=== PATIENT | male | born 1955 | race Caucasian/White ===

== ENCOUNTER 2017-05-27 08:15 | Inpatient (IN) | payer OTHER ==
[2017-05-27] MEDS ORDERED: SODIUM CHLORIDE 0.9% 1,000 ML IV STA (08:18)
[2017-05-27 08:39] LABS: Basophils % (A) 0 %; CH 32.1; CHCM 32.7; Eosinophils # (A) 0.1 k/uL (0-0.7); Eosinophils % (A) 1 %; HCT 49.4 % (39.0-53.0); HDW 2.34; HGB 16.2 gm/dL (13.0-17.5); Luc # (Auto) 0.08; Luc % (Auto) 1; Lymphocytes # (A) 0.9 k/uL (1.0-4.8); Lymphocytes % (A) 11 %; MCH 32.4 pg (25.0-35.0); MCHC 32.8 g/dL (31.0-37.0); MCV 98.8 fL (80.0-100.0); Mean Platelet Volume 7.6; Monocytes # (A) 0.3 k/uL (0-1.0); Monocytes % (A) 4 %; Neutrophils # (A) 6.9 k/uL (1.3-7.7); Neutrophils % (A) 84 %; RBC 4.99 m/uL (4.30-5.90); WBC 8.2 k/uL (3.8-10.6); WBC (Perox) 8.29
[2017-05-27] MEDS ORDERED: RX INFO: IV CONTRAST WAS GIVEN 1 EACH MISC MISCELLANE PRN (08:41)
[2017-05-27] MEDS ORDERED: ONDANSETRON 4 MG/2 ML VIAL IVP STA (08:42)
[2017-05-27] MEDS ORDERED: KETOROLAC 30 MG/ML 1 ML VIAL IVP STA (08:42)
--- NOTE | 2017-05-27 08:44 | ED ---
Abdominal Pain HPI <Teja Becerra - Last Filed: 05/27/17 10:46> - General Source: patient, EMS, RN notes reviewed Mode of arrival: EMS Limitations: physical limitation <Kanu Delgado - Last Filed: 05/27/17 10:48> - General Chief Complaint: Abdominal Pain Stated Complaint: abd pain Time Seen by Provider: 05/27/17 08:18 - History of Present Illness Initial Comments: This a 61-year-old male presents emergency department via EMS chief complaint abdominal pain. Patient states pain started last night has mid abdomen nonradiating. Patient states never had any pain like this in the past. Patient denies it any prior abdominal issues including peptic ulcer disease, Crohn's, also colitis, diverticulitis, pancreatitis and denies any prior abdominal surgeries. Patient states that the pain continued throughout the night and states it hasn't alleviated. Patient was given 10 mg of morphine by EMS and states that helped pain some. He states soap feels nauseated denies any vomiting. Denies any diarrhea or constipation. Patient did admit to drinking alcohol last night. Patient denies chest pain, shortness breath, fever , chills, back pain. (Kanu Delgado) - Related Data Allergies Allergy/AdvReac Type Severity Reaction Status Date / Time No Known Allergies Allergy Verified 05/27/17 08:50 Review of Systems ROS Other: All systems not noted in ROS Statement are negative. <Teja Becerra - Last Filed: 05/27/17 10:46> ROS Other: All systems not noted in ROS Statement are negative. <Kanu Delgado - Last Filed: 05/27/17 10:48> ROS Statement: Those systems with pertinent positive or pertinent negative responses have been documented in the HPI. Past Medical History Past Medical History: No Reported History Past Surgical History: No Surgical Hx Reported <Teja Becerra - Last Filed: 05/27/17 10:46> History of Any Multi-Drug Resistant Organisms: None Reported Smoking Status: Current every day smoker Past Alcohol Use History: Daily Past Drug Use History: None Reported <Kanu Delgado - Last Filed: 05/27/17 10:48> General Exam Limitations: no limitations General appearance: alert, in no apparent distress Head exam: Present: atraumatic, normocephalic, normal inspection Eye exam: Present: normal appearance, PERRL, EOMI. Absent: scleral icterus, conjunctival injection, periorbital swelling ENT exam: Present: normal exam, normal oropharynx, mucous membranes moist Neck exam: Present: normal inspection. Absent: tenderness, meningismus, lymphadenopathy Respiratory exam: Present: normal lung sounds bilaterally. Absent: respiratory distress, wheezes, rales, rhonchi, stridor Cardiovascular Exam: Present: regular rate, normal rhythm, normal heart sounds. Absent: systolic murmur, diastolic murmur, rubs, gallop, clicks GI/Abdominal exam: Present: soft, tenderness (Moderate midabdominal tenderness) , normal bowel sounds. Absent: distended, guarding, rebound, rigid Back exam: Absent: CVA tenderness (R), CVA tenderness (L) Neurological exam: Present: alert, oriented X3, CN II-XII intact Skin exam: Present: warm, dry, intact, normal color. Absent: rash <Kanu Delgado - Last Filed: 05/27/17 10:48> Course <Teja Becerra - Last Filed: 05/27/17 10:46> <Kanu Delgado - Last Filed: 05/27/17 10:48> Vital Signs 05/27/17 05/27/17 08:17 08:28 Temperature 97.0 F L 97.0 F L Pulse Rate 62 Respiratory 20 Rate Blood Pressure 145/80 O2 Sat by Pulse 93 L Oximetry - Reevaluation(s) Reevaluation #1: 05/27/17 10:16 Patient reevaluated by myself, Dr. Becerra. Patient is uncomfortable in bed. Patient states onset of symptoms was last night and progressed over a few hours and is now severe. Abdomen is soft, no guarding. Patient has moderate mid abdominal tenderness. Patient does have elevated lactic acid and a normal CT. Surgeon has been paged. 05/27/17 10:24 EKG shows normal sinus rhythm 96. SC 150. QRS 104. QT 388. QTC 490. Normal axis. Normal QRS. No acute ST change. 05/27/17 10:33 Case was discussed in detail with Dr. Patterson who is coming to evaluate the patient. 05/27/17 10:46 Patient was seen by Dr. Patterson who will take patient to the OR. He does request zosyn (Teja Becerra) Medical Decision Making - Lab Data Result diagrams: 05/27/17 08:25 05/27/17 08:25 <Teja Becerra - Last Filed: 05/27/17 10:46> - Lab Data Result diagrams: 05/27/17 08:25 05/27/17 08:25 <Kanu Delgado - Last Filed: 05/27/17 10:48> - Lab Data Lab Results 05/27/17 05/27/17 05/27/17 Range/Units 08:25 08:25 08:25 WBC 8.2 (3.8-10.6) k/uL RBC 4.99 (4.30-5.90) m/uL Hgb 16.2 (13.0-17.5) gm/dL Hct 49.4 (39.0-53.0) % MCV 98.8 (80.0-100.0) fL MCH 32.4 (25.0-35.0) pg MCHC 32.8 (31.0-37.0) g/dL RDW 13.0 (11.5-15.5) % Plt Count 178 (150-450) k/uL Neutrophils % 84 % Lymphocytes % 11 % Monocytes % 4 % Eosinophils % 1 % Basophils % 0 % Neutrophils # 6.9 (1.3-7.7) k/uL Lymphocytes # 0.9 L (1.0-4.8) k/uL Monocytes # 0.3 (0-1.0) k/uL Eosinophils # 0.1 (0-0.7) k/uL Basophils # 0.0 (0-0.2) k/uL Sodium 143 (137-145) mmol/L Potassium 4.1 (3.5-5.1) mmol/L Chloride 109 H (98-107) mmol/L Carbon Dioxide 24 (22-30) mmol/L Anion Gap 10 mmol/L BUN 15 (9-20) mg/dL Creatinine 0.69 (0.66-1.25) mg/dL Est GFR (MDRD) Af Amer >60 (>60 ml/min/1.73 sqM) Est GFR (MDRD) Non-Af >60 (>60 ml/min/1.73 sqM) Glucose 128 H (74-99) mg/dL Plasma Lactic Acid Myles 2.6 H* (0.7-2.0) mmol/L Calcium 8.4 (8.4-10.2) mg/dL Total Bilirubin 0.3 (0.2-1.3) mg/dL AST 40 (17-59) U/L ALT 44 (21-72) U/L Alkaline Phosphatase 85 (38-126) U/L Total Protein 6.8 (6.3-8.2) g/dL Albumin 3.9 (3.5-5.0) g/dL Amylase 94 (30-110) U/L Lipase 256 (23-300) U/L Serum Alcohol mg/dL 05/27/17 Range/Units 08:41 WBC (3.8-10.6) k/uL RBC (4.30-5.90) m/uL Hgb (13.0-17.5) gm/dL Hct (39.0-53.0) % MCV (80.0-100.0) fL MCH (25.0-35.0) pg MCHC (31.0-37.0) g/dL RDW (11.5-15.5) % Plt Count (150-450) k/uL Neutrophils % % Lymphocytes % % Monocytes % % Eosinophils % % Basophils % % Neutrophils # (1.3-7.7) k/uL Lymphocytes # (1.0-4.8) k/uL Monocytes # (0-1.0) k/uL Eosinophils # (0-0.7) k/uL Basophils # (0-0.2) k/uL Sodium (137-145) mmol/L Potassium (3.5-5.1) mmol/L Chloride (98-107) mmol/L Carbon Dioxide (22-30) mmol/L Anion Gap mmol/L BUN (9-20) mg/dL Creatinine (0.66-1.25) mg/dL Est GFR (MDRD) Af Amer (>60 ml/min/1.73 sqM) Est GFR (MDRD) Non-Af (>60 ml/min/1.73 sqM) Glucose (74-99) mg/dL Plasma Lactic Acid Myles (0.7-2.0) mmol/L Calcium (8.4-10.2) mg/dL Total Bilirubin (0.2-1.3) mg/dL AST (17-59) U/L ALT (21-72) U/L Alkaline Phosphatase (38-126) U/L Total Protein (6.3-8.2) g/dL Albumin (3.5-5.0) g/dL Amylase (30-110) U/L Lipase (23-300) U/L Serum Alcohol 42 mg/dL Disposition <Teja Becerra - Last Filed: 05/27/17 10:46> <Kanu Delgado - Last Filed: 05/27/17 10:48> Clinical Impression: Intractable abdominal pain Disposition: ADMITTED IP TO THIS HOSP Condition: Fair Referrals: None,Stated [Primary Care Provider] - 1-2 days
[2017-05-27 08:49] LABS: ALT 44 U/L (21-72); AST 40 U/L (17-59); Alkaline Phosphatase 85 U/L (38-126); Amylase 94 U/L (30-110); Anion Gap 10 mmol/L; Blood Urea Nitrogen 15 mg/dL (9-20); Calcium 8.4 mg/dL (8.4-10.2); Carbon Dioxide 24 mmol/L (22-30); Chloride 109 mmol/L (98-107); Glucose 128 mg/dL (74-99); Non-African American GFR(MDRD) >60 (>60 ml/min/1.73 sqM); Potassium 4.1 mmol/L (3.5-5.1); Sodium 143 mmol/L (137-145); Total Bilirubin 0.3 mg/dL (0.2-1.3); Total Protein 6.8 g/dL (6.3-8.2)
[2017-05-27] MEDS ORDERED: SODIUM CHLORIDE 0.9% 1,000 ML IV ONE (09:08)
[2017-05-27] MEDS ORDERED: SODIUM CHLORIDE 0.9% 500 ML IV ONE (09:08)
[2017-05-27] MEDS ORDERED: METOCLOPRAMIDE 5 MG/ML 2 ML VIAL IVP STA (09:40)
[2017-05-27] MEDS ORDERED: HYDROmorphone 1 MG/ML 1 ML SYRINGE IVP STA ×2 (09:40→10:10)
--- NOTE | 2017-05-27 09:46 | CT ---
EXAMINATION TYPE: CT abdomen pelvis w con DATE OF EXAM: 05/27/2017 REFERENCE: NONE HISTORY: Pain HISTORY: Abdominal pain REFERENCE: NONE CT DLP: 710.6 mGy Automated exposure control for dose reduction was used. TECHNIQUE: Helical acquisition through the abdomen and pelvis was obtained without Oral Contrast and following intravenous administration of 100 mL of Omnipaque 300. The data was reformatted in axial, c oronal and sagittal projections. FINDINGS: Visualized portions of the lungs are clear. There is no pleural or pericardial fluid. Hear t size is upper limits of normal. Within the abdomen, the liver, spleen and gallbladder appear normal. Both adrenal glands appear normal. Both kidneys demonstrate function. There is a 5.2 mm hypoattenuating lesion in the mid polar region o f the left kidney. The right kidney demonstrates an even smaller hypoattenuating lesion in the mid to lower pole. These lesions are too small to characterize accurately. They likely represent cysts. The pancreas appears unremarkable. There is no significant retroperitoneal, iliac or inguinal adenopathy. The bladder is unremarkable. There is no significant diverticular change. The appendix appears normal. There are fluid-filled, mildly dilated loops of small bowel. There is inflammatory change in the mese ntery. It would be difficult to exclude an internal hernia. There is a small amount of free fluid in the pelvis. No free air is seen. Both femoral heads are nonspherical. There are degenerative changes in the hips. There is facet arthr opathy as well as hypertrophic spondylosis and degenerative disc disease within the spine. No bony de structive lesion is seen. IMPRESSION: 1. ABNORMAL APPEARING SMALL BOWEL WITH INFLAMMATORY CHANGE IN THE MESENTERY. THIS IS SUSPICIOUS FOR A N INTERNAL HERNIA. 2. BORDERLINE CARDIOMEGALY. 3. SMALL LESIONS IN BOTH KIDNEYS LIKELY REPRESENTING CYSTS. THIS COULD BE CONFIRMED WITH ULTRASOUND. 4. SMALL AMOUNT OF FREE FLUID IN THE PELVIS. 5. PLEASE CORRELATE CLINICALLY FOR FEMOROACETABULAR IMPINGEMENT SYNDROME IMPINGEMENT SYNDROME. 6. DEGENERATIVE CHANGES IN THE HIPS AND SPINE.
[2017-05-27] MEDS ORDERED: PANTOPRAZOLE 40 MG/10 ML VIAL IVP STA (10:23)
[2017-05-27] MEDS ORDERED: LORazepam 2 MG/ML SYRINGE IV STA (10:23)
[2017-05-27] MEDS ORDERED: PIPERACILLIN-TAZOBACTAM 3.375 GM in DEXTROSE/WATER 1 50ML.BAG IVPB STA (10:45)
[2017-05-27] MEDS ORDERED: ONDANSETRON 4 MG/2 ML VIAL IVP PRN (10:48)
[2017-05-27] MEDS ORDERED: NALOXONE 0.4 MG/ML 1 ML VIAL IV PRN (10:48)
[2017-05-27 10:53] LABS: INR 1.1 (<1.2); Partial Thromboplastin Time 23.2 sec (22.0-30.0); Prothrombin Time 10.8 sec (9.0-12.0)
--- NOTE | 2017-05-27 10:54 | P.GSHP ---
History of Present Illness H&P Date: 05/27/17 Chief Complaint: Abdominal pain Patient presents to the ER with complaints of mid abdominal pain. This began last night. Since that time and has become quite a bit more severe. No history of similar events in the past. He has had nausea with dry heaves. Normal bowel movement yesterday. Patient says he cannot get comfortable and is writhing around in the bed. He has had a 2 L bolus. His lactic acid is 2.6. His white blood cell count is normal. No history of irregular heartbeat. He had a CAT scan which showed a segment of mid small bowel that is inflamed and there is concern for possible internal hernia. He had a umbilical hernia repaired as an infant. He has a transverse scar present there. - Review of Systems Comment: The patient denies any acute changes in vision or hearing, no dysphagia or odynophagia, no chest pain or shortness of breath, no dysuria or hematuria, no headache, no runny nose, no rectal bleeding or melena, no unexplained weight loss Past Medical History Past Medical History: No Reported History History of Any Multi-Drug Resistant Organisms: None Reported Past Surgical History: No Surgical Hx Reported Smoking Status: Current every day smoker Past Alcohol Use History: Daily Past Drug Use History: None Reported Medications and Allergies Allergies Allergy/AdvReac Type Severity Reaction Status Date / Time No Known Allergies Allergy Verified 05/27/17 08:50 Surgical - Exam Vital Signs Temp Pulse Resp BP Pulse Ox 97.0 F L 62 20 145/80 93 L 05/27/17 08:17 05/27/17 08:17 05/27/17 08:17 05/27/17 08:17 05/27/17 08:17 Physical exam: General: Well-developed, well-nourished, unkempt-appearing, in some distress related to ongoing abdominal pain HEENT: Normocephalic, sclerae nonicteric Abdomen: Mild distention, diffuse tenderness noted, rebound present Extremities: No edema Neuro: Alert and oriented Results - Labs 05/27/17 08:25 05/27/17 08:25 Abnormal Lab Results - Last 24 Hours (Table) 05/27/17 05/27/17 05/27/17 Range/Units 08:25 08:25 08:25 Lymphocytes # 0.9 L (1.0-4.8) k/uL Chloride 109 H (98-107) mmol/L Glucose 128 H (74-99) mg/dL Plasma Lactic Acid Myles 2.6 H* (0.7-2.0) mmol/L Diabetes panel 05/27/17 Range/Units 08:25 Sodium 143 (137-145) mmol/L Potassium 4.1 (3.5-5.1) mmol/L Chloride 109 H (98-107) mmol/L Carbon Dioxide 24 (22-30) mmol/L BUN 15 (9-20) mg/dL Creatinine 0.69 (0.66-1.25) mg/dL Glucose 128 H (74-99) mg/dL Calcium 8.4 (8.4-10.2) mg/dL AST 40 (17-59) U/L ALT 44 (21-72) U/L Alkaline Phosphatase 85 (38-126) U/L Total Protein 6.8 (6.3-8.2) g/dL Albumin 3.9 (3.5-5.0) g/dL Calcium panel 05/27/17 Range/Units 08:25 Calcium 8.4 (8.4-10.2) mg/dL Albumin 3.9 (3.5-5.0) g/dL Pituitary panel 05/27/17 Range/Units 08:25 Sodium 143 (137-145) mmol/L Potassium 4.1 (3.5-5.1) mmol/L Chloride 109 H (98-107) mmol/L Carbon Dioxide 24 (22-30) mmol/L BUN 15 (9-20) mg/dL Creatinine 0.69 (0.66-1.25) mg/dL Glucose 128 H (74-99) mg/dL Calcium 8.4 (8.4-10.2) mg/dL Adrenal panel 05/27/17 Range/Units 08:25 Sodium 143 (137-145) mmol/L Potassium 4.1 (3.5-5.1) mmol/L Chloride 109 H (98-107) mmol/L Carbon Dioxide 24 (22-30) mmol/L BUN 15 (9-20) mg/dL Creatinine 0.69 (0.66-1.25) mg/dL Glucose 128 H (74-99) mg/dL Calcium 8.4 (8.4-10.2) mg/dL Total Bilirubin 0.3 (0.2-1.3) mg/dL AST 40 (17-59) U/L ALT 44 (21-72) U/L Alkaline Phosphatase 85 (38-126) U/L Total Protein 6.8 (6.3-8.2) g/dL Albumin 3.9 (3.5-5.0) g/dL Assessment and Plan (1) Intractable abdominal pain Narrative/Plan: Clinical scenario discussed with the patient in detail. Concern regarding the possibility of ischemic bowel given the CAT scan appearance. We'll proceed with exploratory laparotomy with possible need for bowel resection. Risks of bleeding, infection, hernia, negative laparotomy, possible need for bowel resection, anastomotic leak, possible need for ostomy, and anesthesia complications. The patient and his family understand and wish to proceed. Status: Acute
--- NOTE | 2017-05-27 11:35 | XR ---
EXAMINATION TYPE: XR chest 1V DATE OF EXAM: 05/27/2017 HISTORY: Pain. REFERENCE: NONE. FINDINGS: Heart size upper limits of normal. The lungs are clear. Pleural spaces are clear. IMPRESSION: NO ACUTE INTRATHORACIC ABNORMALITY.
[2017-05-27] MEDS ORDERED: IV FLUID CONTINUATION 1,000 ML IV ONE ×2 (14:01→14:02)
[2017-05-27] MEDS ORDERED: HYDROmorphone (PF) 1 MG/ML ONE (14:49)
[2017-05-27] MEDS ORDERED: MIDAZOLAM 2 MG/2 ML VIAL ONE (14:49)
[2017-05-27] MEDS ORDERED: GLYCOPYRROLATE 0.2 MG/ML 2 ML VIAL ONE (14:49)
[2017-05-27] MEDS ORDERED: fentaNYL (PF) 50 MCG/ML 2 ML AMP ONE (14:49)
[2017-05-27] MEDS ORDERED: DEXAMETHASONE SOD PHOS (MDV) 100 MG/10 ML VIAL ONE (14:49)
[2017-05-27] MEDS ORDERED: PHENYLEPHRINE-0.9% NACL SYG 1 MG/10 ML SYRINGE ONE (14:49)
[2017-05-27] MEDS ORDERED: VECURONIUM 10 MG VIAL IV ONE (14:49)
[2017-05-27] MEDS ORDERED: SUCCINYLCHOLINE CHLORIDE 100 MG/5 ML SYR IV ONE (14:49)
[2017-05-27] MEDS ORDERED: LIDOCAINE 1% INJ 10MG/ML (20 ML MDV) ONE (14:49)
[2017-05-27] MEDS ORDERED: PROPOFOL 10 MG/ML 20 ML VIAL IV ONE (14:49)
[2017-05-27] MEDS ORDERED: NEOSTIGMINE 1 MG/ML 10 ML VIAL ONE (14:49)
[2017-05-27] MEDS ORDERED: HEPARIN SODIUM,PORCINE 5,000 UNIT/ML 1 ML VIAL ONE (14:49)
[2017-05-27] MEDS ORDERED: LACTATED RINGERS 1,000 ML IV ONE ×2 (15:15)
[2017-05-27] MEDS ORDERED: LORazepam 2 MG/ML SYRINGE IV PRN (16:38)
[2017-05-27] MEDS ORDERED: THIAMINE 100 MG/ML 2 ML VIAL IM STA (16:38)
--- NOTE | 2017-05-27 16:49 | P.OP ---
Date of Procedure: 05/27/17 Procedure(s) Performed: PREOPERATIVE DIAGNOSIS: Abdominal pain suspect ischemic bowel POSTOPERATIVE DIAGNOSIS: Skin of bowel secondary to internal hernia PROCEDURE: Exploratory laparotomy with lysis of adhesions and small bowel resection SURGEON: Vane EBL: Minimal ANESTHESIA: General COMPLICATIONS: None OPERATIVE PROCEDURE: Patient was placed in the operative table in the supine position. The patient was placed under general anesthesia. The abdomen was prepped and draped in the usual sterile fashion. A vertical incision was made extending above and below the umbilicus. Dissection through the subcutaneous fat and fascia took place using electrocautery. Entrance in the abdomen took place. A castellon colored fluid was evacuated. Almost 1 L of fluid was removed. The patient small bowel was viable proximally and distally however in the proximal ileum there was a portion of small bowel measuring approximately 1.5-2 feet in length that was ischemic in nature as the result of a internal herniation. There is a single band that was lysed. There were additional adhesions between omentum and the abdominal wall that were lysed. As we monitored the small bowel that was ischemic in nature and did not recover its optimal color. There was no peristalsis noted. I decided to remove this section. The bowel was divided proximal and distal to the area of ischemia. This took place using a linear 75 stapler. The mesentery was divided using a combination of #1 Vicryl ties and the LigaSure device. A vehy-[id number] anastomosis then took place. The antimesenteric portion of the small bowel was removed at the staple line. The linear 75 stapler was fired along the antimesenteric border. The remaining defect was closed using a TX 60 device. The abdomen was irrigated. No bleeding was seen. I closed the mesenteric defect using a running 3-0 Vicryl stitch. The fascia was then closed using a running double-stranded #1 PDS suture. The skin was closed using flor. Sterile dressings were applied. DISPOSITION: Stable to recovery room
[2017-05-27] MEDS ORDERED: HYDROmorphone 1 MG/ML 1 ML SYRINGE IVP ONE (16:54)
[2017-05-27] MEDS: D5-0.45% NACL WITH KCL 20MEQ/L 1,000 ML IV SCH (17:50)
[2017-05-27] MEDS: HYDROmorphone 1 MG/ML 1 ML SYRINGE IV PRN (18:11)
[2017-05-27] MEDS: THIAMINE 100 MG TAB PO SCH (18:34)
[2017-05-27] MEDS ORDERED: HALOPERIDOL 2 MG TAB PO PRN (19:52)
[2017-05-27] MEDS: LORazepam 2 MG/ML SYRINGE IV PRN (20:11)
[2017-05-27] MEDS ORDERED: hydrALAZINE HCL 20 MG/ML 1 ML VIAL IVP PRN (20:22)
[2017-05-27] MEDS ORDERED: cloNIDine HCL 0.1 MG TAB PO PRN (20:22)
[2017-05-27] MEDS ORDERED: TEMAZEPAM 15 MG CAP PO PRN (20:23)
[2017-05-27] MEDS: NICOTINE 14MG/24HR PATCH TRANSDERM SCH (21:50)
[2017-05-27] MEDS ORDERED: SODIUM CHLORIDE 0.9% 1,000 ML with MVI, ADULT NO.4 WITH VIT K 10 ML, THIAMINE 100 MG, F... IV ONE ×4 (22:00)
[2017-05-28] MEDS: HEPARIN SODIUM,PORCINE 5,000 UNIT/ML 1 ML VIAL SQ SCH ×4 (00:01→23:18)
[2017-05-28] MEDS: [UNRECOGNIZED DRUG - REMARK] IV SCH ×4 (00:06)
[2017-05-28] MEDS: HYDROmorphone 1 MG/ML 1 ML SYRINGE IV PRN ×6 (04:10→20:56)
[2017-05-28 04:19] VITALS: BMI 22.8
--- NOTE | 2017-05-28 06:54 | CONS ---
CONSULTATION REASON FOR CONSULTATION: Advice regarding ETOH and other medical issues requested by Dr. Cifuentes. HISTORY OF PRESENT ILLNESS: This 51-year-old gentleman with a past medical history of no significant medical illness not being followed by any primary physician, apparently living with a brother. 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 Currently the patient presented to [facility] Emergency room with complaints of abdominal pain, intraabdominal hernia was suspected and the patient was seen by Dr. Cifuentes. The patient underwent exploratory laparotomy, lysis of adhesions and small bowel resection. The patient being closely monitored at this time. According to the brother, patient drinks units one fifth of alcohol. The last drink was yesterday. The patient is fairly tremulous at this time, arousable, still mildly confused and the patient is postsurgical at this time. There is no history of fever, rigors. No history of headache, loss of consciousness. No chest pain, palpitations, hematochezia or melena at this time. PAST MEDICAL HISTORY: No history of significant cardiorespiratory illness, history of smoking and alcohol. MEDICATIONS: None. ALLERGIES: None. FAMILY HISTORY: No history of heart disease or strokes in the family. SOCIAL HISTORY: History of smoking on a daily basis. History of alcohol as mentioned earlier. REVIEW OF SYSTEMS: ENT: No diminished vision, diminished hearing. Cardiovascular: No angina or palpitations. Respiratory: Occasional cough. GI: As mentioned earlier. : No dysuria. Nervous system: No numbness, weakness. Allergy/Immunology: No asthma or hayfever. Musculoskeletal as mentioned earlier. Hematology/Oncology: No history of anemia. Endocrine: No history of diabetes, hypothyroidism. Constitutional: As mentioned earlier. Hematology: Negative. Rheumatology: Negative. Psychiatric: As mentioned earlier. PHYSICAL EXAMINATION: Alert and oriented times two. Pulse is 123, blood pressure 130/90, respirations 16, temperature 99 degrees, pulse ox is 94% on 3 L. HEENT: Conjunctivae normal. Oral mucosa moist. Face is flushed. Otherwise neck is no jugular venous distention. No carotid bruit. No lymph node enlargement. CARDIOVASCULAR: S1, S2. Tachycardic. No S3, no S4. Breath sounds diminished in the bases. A few scattered rhonchi. No crackles. ABDOMEN: Soft, status post surgery. No mass palpable. Legs no edema. No swelling. Nervous system: Higher functions as mentioned. Moves all 4 limbs. No focal motor or sensory deficits. Lymphatics no lymph nodes palpable in the neck, axillae or groin. Skin no ulcer, rash, bleeding. LABS: CBC within normal limits. WBC 8.2, otherwise chloride is 109, glucose 120, lactic acid 2.6. ASSESSMENT: 1. Acute abdominal pain with possibly internal hernia with exploratory laparotomy. Lysis of adhesions and small bowel resection. 2. ETOH and alcohol withdrawals with acute delirium tremens. 3. Lactic acidosis secondary to dehydration. 4. Increased random blood sugar. 5. History of nicotine dependence. 6. Hypertension. 7. Tachycardia. RECOMMENDATIONS AND DISCUSSION: This 61-year-old gentleman who presented with multiple complex medical issues. We will monitor the patient closely. Continue the current management. Continue symptomatic treatment. I recommend to continue with hydration. I would also recommend add vitamins to the IV fluids and I would also recommend to continue with CIWA protocol and p.r.n. Ativan. The prognosis is guarded because of multiple complex medical issues. Further recommendations to follow. See orders for details. DVT prophylaxis. Clonidine for hypertension, control hypertension. Discussed with staff. Further recommendations to follow. The prognosis is guarded. Thank you Dr. Cifuentes for letting us participate in the care of this patient. MMODL / IJN: [id number] /
[2017-05-28] MEDS ORDERED: HALOPERIDOL LACTATE 5 MG/ML 1 ML VIAL IM PRN (06:58)
[2017-05-28 07:00] LABS: Appearance,Urine Cloudy (Clear); Glucose,Urine (UA) Negative (Negative); PH, Urine 6.5 (5.0-8.0); Protein,Urine Negative (Negative); Specific Gravity,Urine 1.019 (1.001-1.035)
[2017-05-28 07:01] LABS: Bacteria,Urine Rare /hpf; Bilirubin,Urine Negative (Negative); Ketones,Urine Negative (Negative); Leukocyte Esterase,Urine Large (Negative); Mucus,Urine Rare /hpf; Nitrite,Urine Negative (Negative); Particle Count 3460; RBC,Urine 9 /hpf (0-5); UA Billing (MACRO vs. MICRO) MICRO; Urobilinogen,Urine <2.0 mg/dL (<2.0); WBC,Urine 81 /hpf (0-5)
[2017-05-28 07:18] LABS: Basophils % (A) 0 %; CH 32.1; CHCM 31.6; Eosinophils % (A) 0 %; HCT 48.7 % (39.0-53.0); HDW 2.32; HGB 15.6 gm/dL (13.0-17.5); Luc # (Auto) 0.08; Luc % (Auto) 1; Lymphocytes # (A) 0.8 k/uL (1.0-4.8); Lymphocytes % (A) 9 %; MCH 32.6 pg (25.0-35.0); MCV 101.9 fL (80.0-100.0); Macrocytosis Slight; Mean Platelet Volume 7.8; Monocytes # (A) 0.7 k/uL (0-1.0); Monocytes % (A) 8 %; Neutrophils # (A) 7.6 k/uL (1.3-7.7); Neutrophils % (A) 82 %; RBC 4.78 m/uL (4.30-5.90); RDW 13.3 % (11.5-15.5); WBC 9.3 k/uL (3.8-10.6); WBC (Perox) 9.23
[2017-05-28 07:32] LABS: Anion Gap 8 mmol/L; Blood Urea Nitrogen 15 mg/dL (9-20); Calcium 8.3 mg/dL (8.4-10.2); Carbon Dioxide 28 mmol/L (22-30); Chloride 104 mmol/L (98-107); Glucose 101 mg/dL (74-99); Magnesium 1.9 mg/dL (1.6-2.3); Non-African American GFR(MDRD) >60 (>60 ml/min/1.73 sqM); Phosphorous 3.2 mg/dL (2.5-4.5); Potassium 4.3 mmol/L (3.5-5.1); Sodium 140 mmol/L (137-145)
[2017-05-28] MEDS: PANTOPRAZOLE 40 MG/10 ML VIAL IV SCH (08:30)
[2017-05-28] MEDS: NICOTINE 14MG/24HR PATCH TRANSDERM SCH (08:30)
--- NOTE | 2017-05-28 08:52 | P.PN ---
Subjective Principal diagnosis: Ischemic bowel Patient doing better today. His pain is improved. He has sore at surgical site. He was tachycardic although that is improving. His white blood cell count 9.3. Hemoglobin stable. Lactic acid is improved at 1.5. Objective - Vital Signs Vital signs: Vital Signs Temp 97.9 F 05/28/17 07:00 Pulse 78 05/28/17 07:00 Resp 16 05/28/17 07:00 BP 151/95 05/28/17 07:00 Pulse Ox 97 05/28/17 08:00 Intake & Output 05/27/17 05/28/17 05/28/17 18:59 06:59 18:59 Intake Total 1300 850 Output Total 425 1500 Balance 875 -650 Weight 68.039 kg 68.039 kg Intake: IV 1300 800 Mvi, Adult No.4 with Vit 800 K 10 ml Thiamine 100 mg Folic Acid 1 mg In Sodium Chloride 0.9% 1,000 ml @ 100 mls/hr IV HS CANDY Rx# :[id number] Oral 50 Output: Urine 350 1500 Estimated Blood Loss 75 Other: Voiding Method Toilet Indwelling Catheter - Exam Abdomen: Soft, mild distention, mild tenderness, dressing intact - Labs CBC & Chem 7: 05/28/17 06:20 05/28/17 06:20 Labs: Abnormal Lab Results - Last 24 Hours (Table) 05/27/17 05/27/17 05/28/17 Range/Units 08:25 08:25 06:20 MCV 101.9 H (80.0-100.0) fL Plt Count 128 L (150-450) k/uL Lymphocytes # 0.8 L (1.0-4.8) k/uL Chloride 109 H (98-107) mmol/L Creatinine (0.66-1.25) mg/dL Glucose 128 H (74-99) mg/dL Plasma Lactic Acid Myles 2.6 H* (0.7-2.0) mmol/L Calcium (8.4-10.2) mg/dL Urine Blood (Negative) Ur Leukocyte Esterase (Negative) Urine RBC (0-5) /hpf Urine WBC (0-5) /hpf Urine Bacteria (None) /hpf Urine Mucus (None) /hpf 05/28/17 05/28/17 Range/Units 06:20 06:25 MCV (80.0-100.0) fL Plt Count (150-450) k/uL Lymphocytes # (1.0-4.8) k/uL Chloride (98-107) mmol/L Creatinine 0.59 L (0.66-1.25) mg/dL Glucose 101 H (74-99) mg/dL Plasma Lactic Acid Myles (0.7-2.0) mmol/L Calcium 8.3 L (8.4-10.2) mg/dL Urine Blood Trace H (Negative) Ur Leukocyte Esterase Large H (Negative) Urine RBC 9 H (0-5) /hpf Urine WBC 81 H (0-5) /hpf Urine Bacteria Rare H (None) /hpf Urine Mucus Rare H (None) /hpf Assessment and Plan (1) Intractable abdominal pain Narrative/Plan: Continue antiacids. Continue antibiotics. Recheck labs tomorrow. DT protocol. Increase activity. Remove nasogastric tube and Alatorre catheter. Status: Acute
[2017-05-28] MEDS: D5-0.45% NACL WITH KCL 20MEQ/L 1,000 ML IV SCH ×3 (10:35→18:15)
[2017-05-28] MEDS: THIAMINE 100 MG TAB PO SCH ×2 (12:56→18:16)
[2017-05-28] MEDS: LORazepam 2 MG/ML SYRINGE IV PRN ×5 (12:56→21:37)
[2017-05-28] MEDS: PIPERACILLIN-TAZOBACTAM 3.375 GM in DEXTROSE/WATER 1 50ML.BAG IVPB SCH ×2 (14:54→23:20)
--- NOTE | 2017-05-28 16:21 | PN ---
PROGRESS NOTE DATE OF SERVICE: 05/28/2017 This 61-year-old gentleman was admitted with acute abdominal pain with internal hernia had exploratory laparotomy surgery. The patient also has ETOH. Patient had early withdrawal symptoms. The patient is on CIWA protocol at this time. Patient also had features of UTI. No chest pain. No palpitations. No fever. No shortness of breath. EXAM: Alert, oriented x3. Pulse is 78, blood pressure is 157/75, respiration 18, temperature 97.9, pulse ox 98% on room air. HEENT: Normal. NECK: No jugular venous distention. CARDIOVASCULAR: S1, S2. RESPIRATORY: Breath sounds diminished in the bases. No rhonchi, no crackles. ABDOMEN: Soft, status post surgery. LEGS: No edema. No swelling. NERVOUS SYSTEM: Higher functions as mentioned. Moves all four limbs. No focal motor or sensory deficits. LYMPHATICS: No lymphadenopathy in the neck, axillae, or groin. SKIN: No ulcer, rash, bleeding. LABS: WBC 9.3, sodium 140, potassium 4.3. UA possible UTI. ASSESSMENT: 1. Acute abdominal pain with possible internal hernia with expiratory laparotomy , lysis of adhesions and small bowel resection. 2. ETOH and alcohol withdrawal with acute delirium tremens. 3. Acute urinary tract infection present on admission. 4. Lactic acidosis secondary to dehydration. 5. Increased random blood sugar. 6. History of nicotine dependence. 7. Hypertension. 8. Tachycardia. RECOMMENDATIONS AND DISCUSSION: I recommend to continue current medications, continue symptomatic treatment. I recommend a course of antibiotics and closely follow with Dr. Cifuentes. has improved. Continue the CIWA protocol. Alcohol withdrawal precautions. Guarded prognosis. Further recommendations to follow. MMODL / IJN: [id number] / [facility]
[2017-05-28] MEDS: cloNIDine HCL 0.1 MG TAB PO SCH (21:38)
[2017-05-29] MEDS: HYDROmorphone 1 MG/ML 1 ML SYRINGE IV PRN (01:43)
[2017-05-29] MEDS: [UNRECOGNIZED DRUG - REMARK] IV SCH ×4 (02:28)
[2017-05-29] MEDS: LORazepam 2 MG/ML SYRINGE IV PRN ×2 (03:47→06:17)
[2017-05-29] MEDS: D5-0.45% NACL WITH KCL 20MEQ/L 1,000 ML IV SCH ×4 (05:17→22:34)
[2017-05-29 07:51] LABS: Basophils % (A) 0 %; CH 32.9; CHCM 33.7; Eosinophils % (A) 0 %; HCT 42.6 % (39.0-53.0); HDW 2.24; HGB 13.9 gm/dL (13.0-17.5); Luc # (Auto) 0.06; Luc % (Auto) 1; Lymphocytes # (A) 0.8 k/uL (1.0-4.8); Lymphocytes % (A) 12 %; MCH 32.2 pg (25.0-35.0); MCHC 32.7 g/dL (31.0-37.0); MCV 98.2 fL (80.0-100.0); Mean Platelet Volume 8.6; Monocytes # (A) 0.5 k/uL (0-1.0); Monocytes % (A) 8 %; Neutrophils # (A) 5.2 k/uL (1.3-7.7); Neutrophils % (A) 79 %; RBC 4.34 m/uL (4.30-5.90); RDW 13.5 % (11.5-15.5); WBC 6.5 k/uL (3.8-10.6); WBC (Perox) 6.54
[2017-05-29 08:01] VITALS: RESP 16
[2017-05-29] MEDS: HEPARIN SODIUM,PORCINE 5,000 UNIT/ML 1 ML VIAL SQ SCH ×3 (08:10→23:51)
[2017-05-29] MEDS: NICOTINE 14MG/24HR PATCH TRANSDERM SCH (08:10)
[2017-05-29] MEDS: PANTOPRAZOLE 40 MG/10 ML VIAL IV SCH (08:11)
[2017-05-29] MEDS: cloNIDine HCL 0.1 MG TAB PO SCH ×2 (08:11→22:01)
[2017-05-29 08:18] LABS: Anion Gap 7 mmol/L; Blood Urea Nitrogen 10 mg/dL (9-20); Calcium 8.7 mg/dL (8.4-10.2); Carbon Dioxide 27 mmol/L (22-30); Chloride 98 mmol/L (98-107); Glucose 94 mg/dL (74-99); Magnesium 1.9 mg/dL (1.6-2.3); Non-African American GFR(MDRD) >60 (>60 ml/min/1.73 sqM); Phosphorous 2.7 mg/dL (2.5-4.5); Potassium 3.7 mmol/L (3.5-5.1); Sodium 132 mmol/L (137-145)
[2017-05-29] MEDS: PIPERACILLIN-TAZOBACTAM 3.375 GM in DEXTROSE/WATER 1 50ML.BAG IVPB SCH ×3 (08:50→23:50)
[2017-05-29] MEDS: THIAMINE 100 MG TAB PO SCH ×2 (13:16→19:37)
--- NOTE | 2017-05-29 14:25 | P.PN ---
<Ophelia Rascon M - Last Filed: 05/29/17 14:09> Subjective 61-year-old gentleman being seen on rounds. Currently has a sitter at bedside. DT protocol in place for impending DTs daughter at the bedside. Daughter states the patient drinks daily a fifth of alcohol has not been treated in the past for alcohol withdrawals. To the daughter's knowledge patient would not be interested in treatment for alcoholism. Patient's initial presentation to the emergency room with a chief complaint of intractable abdominal pain. Patient underwent an May 27 exploratory laparotomy lysis of adhesions and small bowel resection Objective - Vital Signs Vital signs: Vital Signs Temp 97.5 F L 05/29/17 07:00 Pulse 93 05/29/17 07:00 Resp 16 05/29/17 07:00 BP 169/91 05/29/17 07:00 Pulse Ox 95 05/29/17 07:00 Intake & Output 05/28/17 05/29/17 05/29/17 18:59 06:59 18:59 Intake Total 1500 Output Total 1300 2131 Balance -1300 -631 Weight 68.039 kg Intake: IV 1500 D5-0.45% NaCl with KCl 1500 20Meq/l 1,000 ml @ 125 mls/hr IV .Q8H [facility] Rx#: [id number] Output: Urine 1300 1660 Straight 300 700 Uretheral (Alatorre) 800 Post Void Residual 471 Other: Voiding Method Indwelling Catheter Urinal # Voids 2 1 3 - Exam Physical exam 61-year-old male arousable to verbal stimuli sitter at the bedside Lungs essentially clear with adequate air movement on room air no cough noted no shortness breath Heart S1-S2 audible regular Abdomen abdominal binder in place surgical dressing dry few hypoactive bowel tones incontinent urine no stool Extremities no edema noted - Labs CBC & Chem 7: 05/29/17 07:11 05/29/17 07:11 Labs: Abnormal Lab Results - Last 24 Hours (Table) 05/29/17 05/29/17 Range/Units 07:11 07:11 Plt Count 116 L (150-450) k/uL Lymphocytes # 0.8 L (1.0-4.8) k/uL Sodium 132 L (137-145) mmol/L Microbiology - Last 24 Hours (Table) 05/28/17 17:50 Urine Culture - Preliminary Urine,Catheterized Assessment and Plan Plan: Impression Present on admission acute onset abdominal pain suspect due to ischemic bowel Postop 2029 exploratory laparotomy with lysis of adhesions and small bowel resection Daily consumption 1/5 of alcohol daily Chronic alcoholism EtOH with alcohol withdrawal with acute delirium tremors Present on admission acute urinary tract infection Lactic acid secondary to dehydration present on admission Chronic nicotine dependency Sinus tachycardia suspect due to EtOH withdrawal impending DTs Plan Continue with the sitter at the bedside Continue ciwa protocol for impending DTs IV fluid for hydration Continue postop surgical care Continue thiamine, multivitamin and folic acid as ordered DVT and GI prophylaxis The above impression and plan of care have been discussed and directed by signing physician. Ophelia Rascon nurse practitioner acting as scribe for signing physician. <Jaspal Cifuentes - Last Filed: 05/29/17 14:55> Objective - Vital Signs Vital signs: Vital Signs Temp 97.5 F L 05/29/17 07:00 Pulse 93 05/29/17 07:00 Resp 16 05/29/17 07:00 BP 169/91 05/29/17 07:00 Pulse Ox 95 05/29/17 07:00 Intake & Output 05/28/17 05/29/17 05/29/17 18:59 06:59 18:59 Intake Total 1500 Output Total 1300 2131 Balance -1300 -631 Weight 68.039 kg Intake: IV 1500 D5-0.45% NaCl with KCl 1500 20Meq/l 1,000 ml @ 125 mls/hr IV .Q8H [facility] Rx#: [id number] Output: Urine 1300 1660 Straight 300 700 Uretheral (Alatorre) 800 Post Void Residual 471 Other: Voiding Method Indwelling Catheter Urinal # Voids 2 1 3 - Labs CBC & Chem 7: 05/29/17 07:11 05/29/17 07:11 Labs: Abnormal Lab Results - Last 24 Hours (Table) 05/29/17 05/29/17 Range/Units 07:11 07:11 Plt Count 116 L (150-450) k/uL Lymphocytes # 0.8 L (1.0-4.8) k/uL Sodium 132 L (137-145) mmol/L Microbiology - Last 24 Hours (Table) 05/28/17 17:50 Urine Culture - Preliminary Urine,Catheterized Assessment and Plan (1) Intractable abdominal pain Status: Acute Plan: Patient more confused today. Denies significant pain. Begin clear liquid diet. Increase activity levels. Continue IV antibiotics.
--- NOTE | 2017-05-29 19:07 | PN ---
PROGRESS NOTE DATE OF SERVICE: 05/29/2017 This 61-year-old gentleman who was admitted with abdominal pain had surgery. The patient also has significant ETOH; the patient is on CIWA protocol currently. The patient had full-blown DTs. Patient is confused, disoriented and tremulous. The patient also had features of UTI. Patient is on antibiotics as well. PHYSICAL EXAMINATION: The patient is oriented x1. Pulse 93, blood pressure 169/91, respiration 16, temperature 97.4, pulse ox 94% on room air. HEENT: Conjunctivae normal. Oral mucosa moist. NECK: No jugular venous distention. No carotid bruit. No lymph node enlargement. CARDIOVASCULAR: S1, S2 muffled. RESPIRATORY: Breath sounds diminished at the bases. No rhonchi. No crackles. ABDOMEN: Soft. Status post surgery. LEGS: No edema. No swelling. NERVOUS SYSTEM: No focal deficit. LABS AT THIS TIME: CBC within normal limits. Sodium 132. UA noted. ASSESSMENT: 1. Acute abdominal pain with possible internal hernia with exploratory laparotomy and lysis of adhesions, small bowel obstruction. 2. Ethanol alcohol withdrawal and acute delirium tremens. 3. Acute urinary tract infection, present on admission. 4. Lactic acid secondary to dehydration. 5. Increased random blood sugar. 6. History of nicotine dependence. 7. Hypertension. 8. Tachycardia. RECOMMENDATIONS AND DISCUSSION: I recommend to continue current medication, continue symptomatic treatment. Continue with vitamin supplementation. Continue with IV fluids. Continue with CIWA protocol. Close monitor. DVT prophylaxis. Guarded prognosis because of multiple complex medical issues. Further recommendations to follow. MMODL / IJN: [id number] /
[2017-05-30] MEDS: [UNRECOGNIZED DRUG - REMARK] IV SCH ×4 (07:15)
[2017-05-30] MEDS: PIPERACILLIN-TAZOBACTAM 3.375 GM in DEXTROSE/WATER 1 50ML.BAG IVPB SCH ×2 (08:31→15:33)
[2017-05-30 08:47] LABS: Basophils % (A) 0 %; CH 33.1; CHCM 33.9; Eosinophils # (A) 0.1 k/uL (0-0.7); Eosinophils % (A) 2 %; HCT 43.4 % (39.0-53.0); HDW 2.27; HGB 14.1 gm/dL (13.0-17.5); Luc # (Auto) 0.06; Luc % (Auto) 1; Lymphocytes # (A) 0.5 k/uL (1.0-4.8); Lymphocytes % (A) 12 %; MCHC 32.6 g/dL (31.0-37.0); Mean Platelet Volume 8.2; Monocytes # (A) 0.3 k/uL (0-1.0); Monocytes % (A) 8 %; Neutrophils # (A) 3.5 k/uL (1.3-7.7); Neutrophils % (A) 78 %; RBC 4.42 m/uL (4.30-5.90); RDW 13.5 % (11.5-15.5); WBC 4.6 k/uL (3.8-10.6); WBC (Perox) 5.13
[2017-05-30 09:11] LABS: Anion Gap 10 mmol/L; Blood Urea Nitrogen 12 mg/dL (9-20); Calcium 8.4 mg/dL (8.4-10.2); Carbon Dioxide 20 mmol/L (22-30); Chloride 104 mmol/L (98-107); Glucose 88 mg/dL (74-99); Non-African American GFR(MDRD) >60 (>60 ml/min/1.73 sqM); Phosphorous 3.6 mg/dL (2.5-4.5); Potassium 3.9 mmol/L (3.5-5.1); Sodium 134 mmol/L (137-145)
--- NOTE | 2017-05-30 09:35 | P.PN ---
<Ophelia Rascon M - Last Filed: 05/30/17 09:25> Subjective 61-year-old male being seen on rounds this morning noted improvement in patient' s mentation increasingly more awake and alert. Patient reports no nausea vomiting no chest pain no dizziness lightheadedness or shortness of breath. DVT protocol for impending DTs using CIWA Ativan in progress. Patient states he's anxious to walk in the hallway" patient's pleasant cooperative sitter at the bedside no family at the bedside Initial presentation to the emergency room with a chief complaint of having developed a sudden onset of intractable abdominal pain suspect due to ischemic bowel May 27 exploratory laparotomy lysis of adhesions and small bowel resection Objective - Vital Signs Vital signs: Vital Signs Temp 98.0 F 05/30/17 07:16 Pulse 77 05/30/17 07:16 Resp 16 05/30/17 07:16 BP 127/78 05/30/17 07:16 Pulse Ox 95 05/30/17 07:16 Intake & Output 05/29/17 05/30/17 05/30/17 18:59 06:59 18:59 Intake Total 750 3400 Output Total 1000 Balance 750 2400 Weight 68.039 kg Intake: IV 750 800 D5-0.45% NaCl with KCl 800 20Meq/l 1,000 ml @ 125 mls/hr IV .Q8H [facility] Rx#: [id number] Mvi, Adult No.4 with Vit 750 K 10 ml Thiamine 100 mg Folic Acid 1 mg In Sodium Chloride 0.9% 1,000 ml @ 100 mls/hr IV HS [facility] Rx# :[id number] Intake, IV Titration 1000 Amount D5-0.45% NaCl with KCl 800 20Meq/l 1,000 ml @ 125 mls/hr IV .Q8H [facility] Rx#: [id number] Piperacillin-Tazobactam 3 200 .375 gm In Dextrose/Water 1 50ml.bag @ 12.5 mls/hr IVPB Q8HR [facility] Rx#: [id number] Oral 1600 Output: Urine 1000 Other: Voiding Method Urinal Urinal # Voids 3 2 - Exam Physical exam Pleasant 61-year-old gentleman resting in bed sitting up in bed pleasant cooperative oriented 3 Lungs essentially clear adequate air movement on room air no shortness of breath noted Heart S1-S2 audible and regular denies any chest pain when questioning no heart palpitations Abdomen abdominal binder in place surgical dressing dry not distended appropriate surgical tenderness noted no bowel movement states not passing gas tolerating clear liquid Extremities no edema noted no tremors - Labs CBC & Chem 7: 05/30/17 07:52 05/30/17 07:52 Labs: Abnormal Lab Results - Last 24 Hours (Table) 05/30/17 05/30/17 Range/Units 07:52 07:52 Plt Count 130 L (150-450) k/uL Lymphocytes # 0.5 L (1.0-4.8) k/uL Sodium 134 L (137-145) mmol/L Carbon Dioxide 20 L (22-30) mmol/L Creatinine 0.61 L (0.66-1.25) mg/dL Microbiology - Last 24 Hours (Table) 05/28/17 17:50 Urine Culture - Final Urine,Catheterized Assessment and Plan Plan: Impression Present on admission acute onset abdominal pain suspect due to ischemic bowel Postop 2029 exploratory laparotomy with lysis of adhesions and small bowel resection Daily consumption 1/5 of alcohol daily Chronic alcoholism EtOH with alcohol withdrawal with acute delirium tremors Present on admission acute urinary tract infection Lactic acid secondary to dehydration present on admission Chronic nicotine dependency Sinus tachycardia suspect due to EtOH withdrawal impending DTs Plan Increase activity Pain control Continue ciwa protocol for impending DTs IV fluid for hydration Continue postop surgical care Continue thiamine, multivitamin and folic acid as ordered DVT and GI prophylaxis The above impression and plan of care have been discussed and directed by signing physician. Ophelia Rascon nurse practitioner acting as scribe for signing physician. <Jaspal Cifuentes - Last Filed: 05/30/17 12:55> Objective - Vital Signs Vital signs: Vital Signs Temp 98.0 F 05/30/17 07:16 Pulse 77 05/30/17 07:16 Resp 16 05/30/17 07:16 BP 127/78 05/30/17 07:16 Pulse Ox 95 05/30/17 07:16 Intake & Output 05/29/17 05/30/17 05/30/17 18:59 06:59 18:59 Intake Total 750 3400 Output Total 1000 Balance 750 2400 Weight 68.039 kg Intake: IV 750 800 D5-0.45% NaCl with KCl 800 20Meq/l 1,000 ml @ 125 mls/hr IV .Q8H [facility] Rx#: [id number] Mvi, Adult No.4 with Vit 750 K 10 ml Thiamine 100 mg Folic Acid 1 mg In Sodium Chloride 0.9% 1,000 ml @ 100 mls/hr IV HS [facility] Rx# :[id number] Intake, IV Titration 1000 Amount D5-0.45% NaCl with KCl 800 20Meq/l 1,000 ml @ 125 mls/hr IV .Q8H [facility] Rx#: [id number] Piperacillin-Tazobactam 3 200 .375 gm In Dextrose/Water 1 50ml.bag @ 12.5 mls/hr IVPB Q8HR [facility] Rx#: [id number] Oral 1600 Output: Urine 1000 Other: Voiding Method Urinal Urinal # Voids 3 2 - Labs CBC & Chem 7: 05/30/17 07:52 05/30/17 07:52 Labs: Abnormal Lab Results - Last 24 Hours (Table) 05/30/17 05/30/17 Range/Units 07:52 07:52 Plt Count 130 L (150-450) k/uL Lymphocytes # 0.5 L (1.0-4.8) k/uL Sodium 134 L (137-145) mmol/L Carbon Dioxide 20 L (22-30) mmol/L Creatinine 0.61 L (0.66-1.25) mg/dL Microbiology - Last 24 Hours (Table) 05/28/17 17:50 Urine Culture - Final Urine,Catheterized Assessment and Plan (1) Intractable abdominal pain Status: Acute Plan: Patient doing much better today. Confusion is mostly resolved. No bowel function. Denies nausea or vomiting. Appetite improving. Will increase diet.
[2017-05-30] MEDS: NICOTINE 14MG/24HR PATCH TRANSDERM SCH (09:54)
[2017-05-30] MEDS: HEPARIN SODIUM,PORCINE 5,000 UNIT/ML 1 ML VIAL SQ SCH ×2 (09:55→15:33)
[2017-05-30] MEDS: cloNIDine HCL 0.1 MG TAB PO SCH ×2 (09:55→21:37)
[2017-05-30] MEDS: D5-0.45% NACL WITH KCL 20MEQ/L 1,000 ML IV SCH ×2 (10:23→17:24)
[2017-05-30] MEDS: PANTOPRAZOLE 40 MG/10 ML VIAL IV SCH (10:26)
[2017-05-30] MEDS: FOLIC ACID 1 MG TAB PO SCH (11:42)
[2017-05-30] MEDS: THIAMINE 100 MG TAB PO SCH ×2 (11:42→17:24)
--- NOTE | 2017-05-30 16:15 | PN ---
PROGRESS NOTE DATE OF SERVICE: 05/30/2017 INTERVAL HISTORY: This 61-year-old gentleman who was admitted with abdominal pain as well as possible internal hernia with surgery. Patient had acute delirium tremens. No chest pain. No palpitations. No fever. EXAM: Alert and oriented x3. pulse 77, blood pressure 129/72, respirations 16, temperature 98 degrees, pulse ox 94% room air. HEENT: Conjunctivae normal. NECK: No jugular venous distention. CARDIOVASCULAR: S1, S2 muffled. RESPIRATORY: Breath sounds diminished in the bases. A few scattered rhonchi. No crackles. ABDOMEN: Soft, status post surgery. LEGS: No edema. No cyanosis. NERVOUS SYSTEM: No focal deficits. LABS: The patient's WBC 12.3, hemoglobin 14.2. Sodium 134. UA noted. ASSESSMENT: 1. Acute abdominal pain with possible internal hernia with exploratory laparotomy as well as lysis of adhesions and small-bowel obstruction. 2. Ethanol withdrawal and acute delirium tremens. 3. Acute urinary tract infection present on admission. 4. Lactic acidosis secondary to dehydration. 5. Increased random blood sugar. 6. History of nicotine dependence. 7. Hypertension. 8. Tachycardia. RECOMMENDATIONS AND DISCUSSION: Continue current medications, continue with symptomatic treatment. Continue with CIWA protocol, Ativan p.r.n. Increase ambulation. The rest of the medications will be given per the recommendations of Surgery. Continue with empiric antibiotics. Further recommendations to follow. NANETTE / VALARIEN: [id number] /
[2017-05-31] MEDS: PIPERACILLIN-TAZOBACTAM 3.375 GM in DEXTROSE/WATER 1 50ML.BAG IVPB SCH ×4 (00:09→23:51)
[2017-05-31] MEDS: HEPARIN SODIUM,PORCINE 5,000 UNIT/ML 1 ML VIAL SQ SCH ×4 (00:09→23:51)
[2017-05-31] MEDS: [UNRECOGNIZED DRUG - REMARK] IV SCH ×8 (01:03→22:37)
[2017-05-31] MEDS: D5-0.45% NACL WITH KCL 20MEQ/L 1,000 ML IV SCH ×3 (01:04→20:47)
[2017-05-31] MEDS: cloNIDine HCL 0.1 MG TAB PO SCH ×2 (07:53→21:18)
[2017-05-31] MEDS: PANTOPRAZOLE 40 MG/10 ML VIAL IV SCH (07:53)
[2017-05-31] MEDS: NICOTINE 14MG/24HR PATCH TRANSDERM SCH (08:06)
[2017-05-31] MEDS: THIAMINE 100 MG TAB PO SCH ×2 (11:01→18:03)
[2017-05-31] MEDS: FOLIC ACID 1 MG TAB PO SCH (11:01)
--- NOTE | 2017-05-31 11:12 | P.PN ---
Subjective Principal diagnosis: Ischemic bowel Patient doing well today. He is tolerating his full liquid diet. He is having bowel function. He is very alert. Pain is improved. Objective - Vital Signs Vital signs: Vital Signs Temp 98.1 F 05/31/17 06:48 Pulse 75 05/31/17 06:48 Resp 16 05/31/17 06:48 BP 100/62 05/31/17 06:48 Pulse Ox 92 L 05/31/17 06:48 Intake & Output 05/30/17 05/31/17 05/31/17 18:59 06:59 18:59 Intake Total 100 1600 Balance 100 1600 Weight 68.039 kg Intake: IV 1600 D5-0.45% NaCl with KCl 1000 20Meq/l 1,000 ml @ 125 mls/hr IV .Q8H [facility] Rx#: [id number] Mvi, Adult No.4 with Vit 600 K 10 ml Thiamine 100 mg Folic Acid 1 mg In Sodium Chloride 0.9% 1,000 ml @ 100 mls/hr IV HS [facility] Rx# :[id number] Oral 100 Other: Voiding Method Urinal Toilet Urinal # Voids 2 5 2 # Bowel Movements 1 - Exam Abdomen: Soft, nondistended, incision clean and dry - Labs CBC & Chem 7: 05/30/17 07:52 05/30/17 07:52 Assessment and Plan (1) Intractable abdominal pain Narrative/Plan: Advance diet to soft foods. Increase activity levels. Anticipate discharge tomorrow. Status: Acute
--- NOTE | 2017-05-31 15:39 | PN ---
PROGRESS NOTE DATE OF SERVICE: 05/31/2017 This is a 61-year-old gentleman who was admitted with acute abdominal pain, had surgery. Patient also had acute alcohol withdrawal and as well as delirium tremens also. No chest pain. No palpitation. No fever. PHYSICAL EXAM: Alert and oriented x3. Pulse 75, blood pressure 100/60, respirations 16, temperature 98.1, pulse ox 95% on room air. HEENT: Conjunctivae are normal, oral mucosa moist. Neck is no jugular venous distention, no thyroid enlargement, no lymph node enlargement. CARDIOVASCULAR SYSTEM: S1, S2 muffled. RESPIRATORY: Breath sounds diminished at the bases, scattered rhonchi. ABDOMEN: Soft, status post surgery. LEGS: No edema. No swelling. NERVOUS SYSTEM: No focal deficits. . LABS: Platelets 130, sodium 135. ASSESSMENT: 1. Acute abdominal pain with possible internal hernia with exploratory laparotomy as well as lysis of adhesions and small bowel obstruction. 2. History of Ethyl alcohol withdrawal and acute delirium tremens. 3. Acute urinary tract infection, present on admission. 4. Lactic acidosis secondary to dehydration. 5. Increased random blood sugar. 6. History of nicotine dependence. 7. Hypertension. 8. Tachycardia. RECOMMENDATION: In this 61-year-old gentleman who presented with multiple medical issues, will monitor the patient closely. Continue with the current management and symptomatic treatment. Continue with the clonidine. Continue with the antibiotics. Closely follow with Surgery, Dr. Cifuentes. Advance diet per Dr. Cifuentes. Further recommendations to follow. MMODL / IJN: [id number] /
[2017-06-01] MEDS: D5-0.45% NACL WITH KCL 20MEQ/L 1,000 ML IV SCH ×2 (01:18→09:07)
[2017-06-01] MEDS ORDERED: PANTOPRAZOLE 40 MG TABLET PO SCH (07:30)
[2017-06-01 08:05] VITALS: BP 123/74; PULSE 72; TEMP 97.9
--- NOTE | 2017-06-01 08:14 | P.DS ---
Providers Date of admission: 05/27/17 10:49 Expected date of discharge: 06/01/17 Attending physician: Jaspal Cifuentes Consults: 05/27/17 16:38 Consult Physician Routine Consulting Provider: Stalin Avalos Consult Reason/Comments: Medical management Do you want consulting provider notified?: Yes Primary care physician: Stated None - Discharge Diagnosis(es) (1) Intractable abdominal pain Patient is better the hospital with ischemic bowel. He underwent exploratory laparotomy and was found to have a segment of small bowel that was ischemic secondary to internal herniation from abdominal adhesions. This required a small bowel resection. Postoperatively he has done well. He is tolerating his diet at this point. His pain is well-controlled with oral medications. He would like to be discharged today. Incision is clean and dry. Plan outpatient follow-up in 1 week. Current Visit: Yes Status: Acute Patient Condition at Discharge: Fair Plan - Discharge Summary New Discharge Prescriptions: New Hydrocodone/Acetaminophen [[place] 5-325] 1 - 2 each PO Q4HR PRN #30 tab PRN Reason: pain Discharge Medication List Hydrocodone/Acetaminophen [[place] 5-325] 1 - 2 each PO Q4HR PRN #30 tab 06/01/17 [Rx] Follow up Appointment(s)/Referral(s): None,Stated [Primary Care Provider] - 1-2 days Jaspal Cifuentes MD [Medical Doctor] - 1 Week Patient Instructions/Handouts: Acute Abdominal Pain (DC)
[2017-06-01 08:42] LABS: CH 32.6; CHCM 33.2; HDW 2.34; HGB 13.9 gm/dL (13.0-17.5); MCH 32.7 pg (25.0-35.0); MCHC 33.2 g/dL (31.0-37.0); MCV 98.6 fL (80.0-100.0); Mean Platelet Volume 7.8; RBC 4.26 m/uL (4.30-5.90); RDW 12.9 % (11.5-15.5); WBC 4.5 k/uL (3.8-10.6)
[2017-06-01] MEDS: PIPERACILLIN-TAZOBACTAM 3.375 GM in DEXTROSE/WATER 1 50ML.BAG IVPB SCH (08:44)
[2017-06-01] MEDS: cloNIDine HCL 0.1 MG TAB PO SCH (08:44)
[2017-06-01] MEDS: HEPARIN SODIUM,PORCINE 5,000 UNIT/ML 1 ML VIAL SQ SCH (08:44)
[2017-06-01] MEDS: NICOTINE 14MG/24HR PATCH TRANSDERM SCH (08:44)
[2017-06-01] MEDS: FOLIC ACID 1 MG TAB PO SCH (12:03)
[2017-06-01] MEDS: THIAMINE 100 MG TAB PO SCH (12:03)
--- NOTE | 2017-06-01 18:01 | PN ---
PROGRESS NOTE DATE OF SERVICE: 06/01/2017 HISTORY: This 61-year-old gentleman admitted with acute abdominal pain as well as internal hernia surgery. Patient with acute DTs also, possibly because of significant EtOH history. The patient improved significantly. He was treated symptomatically. Dr. Cifuentes is recommended outpatient followup. No chest pain or palpitations. No fever. PHYSICAL EXAM: Alert, oriented x3. Pulse is 72, blood pressure 123/72, respiration 16, temperature 97.8, pulse ox 94% on room air. HEENT: Conjunctivae normal. Oral mucosa moist. NECK: No jugular venous distention. No carotid bruit. No lymph nodes. CARDIOVASCULAR: Few rhonchi. ABDOMEN: Soft, status post surgery. EXTREMITIES: Legs no edema, no swelling. 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 LABS: At this time shows WBC 4.2, hemoglobin 13.9. ASSESSMENT: 1. Acute abdominal pain with possible internal hernia with exploratory laparotomy as well as lysis of adhesions, small bowel obstruction. 2. History of EtOH withdrawal and acute delirium tremens. 3. Acute urinary tract infection present on admission. 4. Lactic acidosis secondary to dehydration. 5. Increased random blood sugar. 6. History of nicotine dependence. 7. Hypertension. 8. Tachycardia. RECOMMENDATIONS: Continue current management and recommend EtOH cessation. Ativan p.r.n. Antibiotics. Recommend close followup with surgery and primary physician. Further recommendations to follow. MMODL / IJN: [id number] /
== END 2017-06-01 15:15 | disposition home or self-care (01) | DRG 330 ==
LOC: EC 08:15 → 3SUR 10:49
PROVIDERS: ADMIT Surgery; ATTEND Surgery
PROC: HZ2ZZZZ Detoxification Services for Substance Abuse Treatment (ICD-10-PCS; 2017-05-27)
PROC: 0DB80ZZ Excision of Small Intestine, Open Approach (ICD-10-PCS; principal; 2017-05-27 14:00)
DX: K56.5 Intestinal adhesions [bands] with obstruction (postinfection) (principal); E87.2 Acidosis; F10.231 Alcohol dependence with withdrawal delirium; K55.9 Vascular disorder of intestine, unspecified; N39.0 Urinary tract infection, site not specified; E86.0 Dehydration; I10 Essential (primary) hypertension; R73.09 Other abnormal glucose; R00.0 Tachycardia, unspecified; F17.200 Nicotine dependence, unspecified, uncomplicated; Z71.3 Dietary counseling and surveillance; Y90.2 Blood alcohol level of 40-59 mg/100 ml
CPT/HCPCS: 36415; 71010; 74177; 80048; 80053; 80320; 81001; 82150; 83605; 83690; 83735; 84100; 85025; 85027; 85610; 85730; 86850; 86900; 86901; 87086; 88307; 96361; 96365; 96366; 96375; 96376; 99285

== ENCOUNTER 2021-04-09 08:01 | Day surgery (SDC) | payer OTHER ==
[2021-04-05 14:41] VITALS: BMI 28.3
[2021-04-09 08:31] VITALS: TEMP 98.3
[2021-04-09] MEDS ORDERED: LIDOCAINE 1% (10MG/ML) FOR IV START INTRADERMA ONE (08:40)
[2021-04-09] MEDS ORDERED: LACTATED RINGERS 1,000 ML IV ONE (08:40)
[2021-04-09] MEDS ORDERED: PROPOFOL 10 MG/ML 20 ML VIAL IV ONE (09:38)
--- NOTE | 2021-04-09 09:40 | P.GSHP ---
History of Present Illness H&P Date: 04/09/21 Chief Complaint: Screening colonoscopy This is a 65-year-old male who presents today for screening colonoscopy. Patient denies a significant GI complaints. Past Medical History Past Medical History: No Reported History History of Any Multi-Drug Resistant Organisms: None Reported Past Surgical History: Bowel Resection, Hernia Repair Past Anesthesia/Blood Transfusion Reactions: No Reported Reaction Smoking Status: Current every day smoker - Past Family History Mother Family Medical History: No Reported History Medications and Allergies Home Medications Medication Instructions Recorded Confirmed Type No Known Home Medications 04/05/21 04/09/21 History Allergies Allergy/AdvReac Type Severity Reaction Status Date / Time No Known Allergies Allergy Verified 04/09/21 08:27 Surgical - Exam Vital Signs Temp Pulse Resp BP Pulse Ox 98.3 F 73 16 171/99 98 04/09/21 08:30 04/09/21 08:30 04/09/21 08:30 04/09/21 08:30 04/09/21 08:30 - General well developed, well nourished, no distress - Eyes PERRL - ENT normal pinna - Neck no masses - Respiratory normal expansion - Cardiovascular Rhythm: regular - Abdomen Abdomen: soft, non tender Assessment and Plan Assessment: We'll perform screening colonoscopy.
--- NOTE | 2021-04-09 10:10 | P.OP ---
Date of Procedure: 04/09/21 Preoperative Diagnosis: Screening colonoscopy Postoperative Diagnosis: Diverticulosis Procedure(s) Performed: Colonoscopy Anesthesia: MAC Surgeon: Saroj Wells Pathology: none sent Condition: stable Disposition: PACU Description of Procedure: Patient's placed on the endoscopy table in the lateral position. He sees IV sedation. Digital rectal exam was performed. The flexible colonoscope was then placed patient anus passed rotator entire colon. The ileocecal valve visualized. Cecum descending and sigmoid colon is mild diverticular changes. The colonic polyps or tumors. Scope was then brought back the rectum this appeared normal. Scope was withdrawn from the patient.
[2021-04-09 10:21] VITALS: BP 136/78; PULSE 76; RESP 18
== END 2021-04-09 10:47 | disposition home or self-care (01) ==
LOC: ORWHC2ENDO 08:01
PROVIDERS: ATTEND Surgery
DX: Z12.11 Encounter for screening for malignant neoplasm of colon (principal); F17.200 Nicotine dependence, unspecified, uncomplicated
CPT/HCPCS: G0121; J2704

== ENCOUNTER 2022-05-04 09:24 | Inpatient (IN) | payer OTHER ==
[2022-05-04] MEDS ORDERED: FOLIC ACID 5 MG/ML 10 ML VIAL IM STA (09:28)
[2022-05-04] MEDS ORDERED: THIAMINE 100 MG/ML 2 ML VIAL IVP STA (09:28)
[2022-05-04] MEDS ORDERED: SODIUM CHLORIDE 0.9% 500 ML 500 ML IV ONE (09:28)
[2022-05-04] MEDS ORDERED: SODIUM CHLORIDE 0.9% 1,000 ML IV STA (09:28)
[2022-05-04] MEDS ORDERED: DIPH,PERTUS(ACELL)TETVAC-LF 0.5 ML VIAL IM ONE (09:30)
[2022-05-04 10:11] LABS: Basophils % (A) 1 %; Eosinophils # (A) 0.1 k/uL (0-0.7); Eosinophils % (A) 2 %; HCT 43.5 % (39.0-53.0); HGB 13.9 gm/dL (13.0-17.5); Lymphocytes # (A) 0.3 k/uL (1.0-4.8); Lymphocytes % (A) 8 %; MCH 31.9 pg (25.0-35.0); MCHC 31.9 g/dL (31.0-37.0); MCV 99.9 fL (80.0-100.0); Monocytes # (A) 0.3 k/uL (0-1.0); Monocytes % (A) 8 %; Neutrophils # (A) 3.3 k/uL (1.3-7.7); Neutrophils % (A) 81 %; RBC 4.35 m/uL (4.30-5.90); RDW 13.8 % (11.5-15.5)
[2022-05-04 10:24] LABS: Partial Thromboplastin Time 24.5 sec (22.0-30.0); Prothrombin Time 11.2 sec (9.0-12.0)
[2022-05-04 10:28] LABS: ALT 106 U/L (4-49); AST 229 U/L (17-59); African American GFR (CKD) >90 (>60 ml/min/1.73 sqM); Albumin 4.2 g/dL (3.5-5.0); Alkaline Phosphatase 95 U/L (38-126); Anion Gap 16 mmol/L; Blood Urea Nitrogen 11 mg/dL (9-20); Calcium 8.5 mg/dL (8.4-10.2); Carbon Dioxide 20 mmol/L (22-30); Chloride 102 mmol/L (98-107); Glucose 86 mg/dL (74-99); Magnesium 1.7 mg/dL (1.6-2.3); Non-African American GFR(CKD) >90 (>60 ml/min/1.73 sqM); Potassium 3.9 mmol/L (3.5-5.1); Sodium 138 mmol/L (137-145); Total Bilirubin 1.3 mg/dL (0.2-1.3); Total Protein 6.9 g/dL (6.3-8.2)
[2022-05-04 10:34] LABS: Alcohol 150 mg/dL; Creatine Kinase 1401 U/L (55-170)
[2022-05-04 10:40] LABS: Platelet Count 70 k/uL (150-450); RBC Morphology Normal
--- NOTE | 2022-05-04 10:44 | XR ---
EXAMINATION TYPE: XR chest 2V DATE OF EXAM: 05/04/2022 COMPARISON: 05/27/2017 TECHNIQUE: PA and lateral views submitted. HISTORY: Altered mental status FINDINGS: The lungs are clear and there is no pneumothorax, pleural effusion, or focal pneumonia. Hyperinflat ion lungs with hypertrophic and degenerative changes of the spine. Mild prominence of the aortic arch with atherosclerotic change. Diffuse osteopenia with arthropathy of the shoulders. Coarsened interst itium is most likely in the basis of chronic interstitial lung disease. Suspect chronic rib cage defo rmity posteriorly on the left. Underlying COPD in the differential diagnosis. Suspect there is a prom inent osteophyte or syndesmophyte along the left mid to lower thoracic spinal column stable from 2017 . IMPRESSION: 1. No acute process. Correlate for COPD and chronic interstitial lung disease.
--- NOTE | 2022-05-04 10:57 | CT ---
EXAMINATION TYPE: CT brain wo con DATE OF EXAM: 05/04/2022 COMPARISON: None HISTORY: Altered mental status CT DLP: 1157.4 mGycm Automated exposure control for dose reduction was used. FINDINGS: Moderate generalized degenerative change with faint low attenuation in the white matter no acute hemo rrhage or mass effect. There is a 1 cm subcutaneous nodule in the soft tissues along the posterior gr perior calvarium. Right MCA is somewhat hyperdense recommend CTA [place] included internal t hrombus. Report called to referring clinician at 10:49 AM 05/04/2022. Intracranial calcifications noted. Orbits symmetric. Mastoid air cells clear. Mild changes of chronic sinusitis. Craniocervical junction maintained. Sella turcica and normal. IMPRESSION: 1. Right MCA questionably hyperdense recommend CTA [place] to exclude internal thrombus. Cor relate for symptoms of right MCA ischemia. 2. No acute hemorrhage. 3. degenerative nonspecific white matter changes
--- NOTE | 2022-05-04 11:58 | CT ---
EXAMINATION TYPE: CT angio COW [place] DATE OF EXAM: 05/04/2022 HISTORY: Altered mental status, confusion COMPARISON: 05/04/[address] DLP: 955.4 mGycm. Automated Exposure Control for Dose Reduction was Utilized. TECHNIQUE: CTA scan of the [place] is performed with IV Contrast, patient injected with 100 mL of Isovue 370, axial images are obtained, coronal and sagittal reformatted images are reviewed. T hree-D reconstructed images are created on an independent workstation and reviewed. Source images ar e reviewed. FINDINGS: Cervical of [place]: Vertebral basilar system appears normal. Posterior cerebral vasculature is unrema rkable. Internal carotid arteries bifurcate normally into A1 and M1 segments. A2 segments are normal. The anterior communicating artery is patent. Left Posterior communicating artery is patent. Right po sterior communicating artery is patent. IMPRESSION: 1. Normal [place]. No right middle cerebral artery thrombus or filling defects.
--- NOTE | 2022-05-04 13:56 | ED ---
Altered Mental Status HPI - General Chief Complaint: Altered Mental Status Stated Complaint: AMS/ETOH Time Seen by Provider: 05/04/22 09:28 Source: patient, EMS, RN notes reviewed Mode of arrival: EMS - History of Present Illness Initial Comments: 66-year-old male brought in by EMS today for evaluation of altered mental status. Patient was found wandering around since last night he states he may have actually been wandering around the past several days he stranding get into people's houses. He was found be confused but alert to self he did invited with it was her mother this. Accu-Chek was 118 per paramedics and saturation 98% no trauma reported other than some abrasions to his forearms from going to the was he states. He does admit to drinking alcohol. No other current complaints and modifying factors MD Complaint: altered mental status, intoxication - Related Data Home Medications Medication Instructions Recorded Confirmed No Known Home Medications 04/05/21 05/04/22 Allergies Allergy/AdvReac Type Severity Reaction Status Date / Time No Known Allergies Allergy Verified 05/04/22 10:20 Review of Systems ROS Statement: Those systems with pertinent positive or pertinent negative responses have been documented in the HPI. ROS Other: All systems not noted in ROS Statement are negative. Past Medical History Past Medical History: No Reported History History of Any Multi-Drug Resistant Organisms: None Reported Past Surgical History: Bowel Resection, Hernia Repair Past Anesthesia/Blood Transfusion Reactions: No Reported Reaction Smoking Status: Current every day smoker - Past Family History Mother Family Medical History: No Reported History General Exam - General Exam Comments Initial Comments: Is a well-developed well-nourished awake alert but somewhat confused male with a smell of alcohol conjoiners on his breath General appearance: alert, lethargic Head exam: Present: atraumatic, normocephalic, normal inspection Eye exam: Present: normal appearance, PERRL, EOMI. Absent: scleral icterus, conjunctival injection, periorbital swelling ENT exam: Present: mucous membranes dry Neck exam: Present: normal inspection, full ROM, other (No stridor JVD or bruits). Absent: tenderness, meningismus, lymphadenopathy Respiratory exam: Present: normal lung sounds bilaterally. Absent: respiratory distress, wheezes, rales, rhonchi, stridor Cardiovascular Exam: Present: regular rate, normal rhythm, normal heart sounds. Absent: systolic murmur, diastolic murmur, rubs, gallop, clicks GI/Abdominal exam: Present: soft, normal bowel sounds. Absent: distended, tenderness, guarding, rebound, rigid Rectal exam: Present: deferred Extremities exam: Present: normal inspection, full ROM, normal capillary refill, other (Superficial abrasion seen on the forearms more so on the right than the left no suture repair indicated no foreign body seen.). Absent: tenderness, pedal edema, joint swelling, calf tenderness Back exam: Present: normal inspection, full ROM, tenderness Neurological exam: Present: alert, altered, CN II-XII intact Psychiatric exam: Present: normal mood, flat affect Skin exam: Present: warm, dry, normal color. Absent: intact (As noted above), rash Course Vital Signs 05/04/22 13:35 Pulse Rate 78 Respiratory 20 Rate Blood Pressure 158/104 O2 Sat by Pulse 98 Oximetry Medical Decision Making - Medical Decision Making I did discuss case with Dr. Underwood the patient will be admitted for inpatient evaluation and treatment he does demonstrate evidence of alcohol intoxication rhabdomyolysis and dehydration. - Lab Data Result diagrams: 05/04/22 10:00 05/04/22 10:00 Lab Results 05/04/22 05/04/22 05/04/22 Range/Units 09:45 10:00 10:00 WBC 4.0 (3.8-10.6) k/uL RBC 4.35 (4.30-5.90) m/uL Hgb 13.9 (13.0-17.5) gm/dL Hct 43.5 (39.0-53.0) % MCV 99.9 (80.0-100.0) fL MCH 31.9 (25.0-35.0) pg MCHC 31.9 (31.0-37.0) g/dL RDW 13.8 (11.5-15.5) % Plt Count 70 L (150-450) k/uL MPV 9.0 Neutrophils % 81 % Lymphocytes % 8 % Monocytes % 8 % Eosinophils % 2 % Basophils % 1 % Neutrophils # 3.3 (1.3-7.7) k/uL Lymphocytes # 0.3 L (1.0-4.8) k/uL Monocytes # 0.3 (0-1.0) k/uL Eosinophils # 0.1 (0-0.7) k/uL Basophils # 0.0 (0-0.2) k/uL Manual Slide Review Performed RBC Morphology Normal PT 11.2 (9.0-12.0) sec INR 1.0 (<1.2) APTT 24.5 (22.0-30.0) sec Sodium (137-145) mmol/L Potassium (3.5-5.1) mmol/L Chloride (98-107) mmol/L Carbon Dioxide (22-30) mmol/L Anion Gap mmol/L BUN (9-20) mg/dL Creatinine (0.66-1.25) mg/dL Est GFR (CKD-EPI)AfAm (>60 ml/min/1.73 sqM) Est GFR (CKD-EPI)NonAf (>60 ml/min/1.73 sqM) Glucose (74-99) mg/dL Lactic Ac Sepsis Rflx Plasma Lactic Acid Myles (0.7-2.0) mmol/L Calcium (8.4-10.2) mg/dL Magnesium (1.6-2.3) mg/dL Total Bilirubin (0.2-1.3) mg/dL AST (17-59) U/L ALT (4-49) U/L Alkaline Phosphatase (38-126) U/L Creatine Kinase (55-170) U/L Troponin I (0.000-0.034) ng/mL Total Protein (6.3-8.2) g/dL Albumin (3.5-5.0) g/dL Serum Alcohol mg/dL Coronavirus (PCR) Not Detected (Not Detectd) 05/04/22 05/04/22 05/04/22 Range/Units 10:00 10:00 10:00 WBC (3.8-10.6) k/uL RBC (4.30-5.90) m/uL Hgb (13.0-17.5) gm/dL Hct (39.0-53.0) % MCV (80.0-100.0) fL MCH (25.0-35.0) pg MCHC (31.0-37.0) g/dL RDW (11.5-15.5) % Plt Count (150-450) k/uL MPV Neutrophils % % Lymphocytes % % Monocytes % % Eosinophils % % Basophils % % Neutrophils # (1.3-7.7) k/uL Lymphocytes # (1.0-4.8) k/uL Monocytes # (0-1.0) k/uL Eosinophils # (0-0.7) k/uL Basophils # (0-0.2) k/uL Manual Slide Review RBC Morphology PT (9.0-12.0) sec INR (<1.2) APTT (22.0-30.0) sec Sodium 138 (137-145) mmol/L Potassium 3.9 (3.5-5.1) mmol/L Chloride 102 (98-107) mmol/L Carbon Dioxide 20 L (22-30) mmol/L Anion Gap 16 mmol/L BUN 11 (9-20) mg/dL Creatinine 0.67 (0.66-1.25) mg/dL Est GFR (CKD-EPI)AfAm >90 (>60 ml/min/1.73 sqM) Est GFR (CKD-EPI)NonAf >90 (>60 ml/min/1.73 sqM) Glucose 86 (74-99) mg/dL Lactic Ac Sepsis Rflx Plasma Lactic Acid Myles 3.3 H* (0.7-2.0) mmol/L Calcium 8.5 (8.4-10.2) mg/dL Magnesium 1.7 (1.6-2.3) mg/dL Total Bilirubin 1.3 (0.2-1.3) mg/dL AST 229 H (17-59) U/L ALT 106 H (4-49) U/L Alkaline Phosphatase 95 (38-126) U/L Creatine Kinase 1401 H* (55-170) U/L Troponin I <0.012 (0.000-0.034) ng/mL Total Protein 6.9 (6.3-8.2) g/dL Albumin 4.2 (3.5-5.0) g/dL Serum Alcohol 150 mg/dL Coronavirus (PCR) (Not Detectd) 05/04/22 05/04/22 Range/Units 10:36 13:04 WBC (3.8-10.6) k/uL RBC (4.30-5.90) m/uL Hgb (13.0-17.5) gm/dL Hct (39.0-53.0) % MCV (80.0-100.0) fL MCH (25.0-35.0) pg MCHC (31.0-37.0) g/dL RDW (11.5-15.5) % Plt Count (150-450) k/uL MPV Neutrophils % % Lymphocytes % % Monocytes % % Eosinophils % % Basophils % % Neutrophils # (1.3-7.7) k/uL Lymphocytes # (1.0-4.8) k/uL Monocytes # (0-1.0) k/uL Eosinophils # (0-0.7) k/uL Basophils # (0-0.2) k/uL Manual Slide Review RBC Morphology PT (9.0-12.0) sec INR (<1.2) APTT (22.0-30.0) sec Sodium (137-145) mmol/L Potassium (3.5-5.1) mmol/L Chloride (98-107) mmol/L Carbon Dioxide (22-30) mmol/L Anion Gap mmol/L BUN (9-20) mg/dL Creatinine (0.66-1.25) mg/dL Est GFR (CKD-EPI)AfAm (>60 ml/min/1.73 sqM) Est GFR (CKD-EPI)NonAf (>60 ml/min/1.73 sqM) Glucose (74-99) mg/dL Lactic Ac Sepsis Rflx Y Plasma Lactic Acid Myles 1.9 (0.7-2.0) mmol/L Calcium (8.4-10.2) mg/dL Magnesium (1.6-2.3) mg/dL Total Bilirubin (0.2-1.3) mg/dL AST (17-59) U/L ALT (4-49) U/L Alkaline Phosphatase (38-126) U/L Creatine Kinase (55-170) U/L Troponin I (0.000-0.034) ng/mL Total Protein (6.3-8.2) g/dL Albumin (3.5-5.0) g/dL Serum Alcohol mg/dL Coronavirus (PCR) (Not Detectd) - Radiology Data Radiology results: report reviewed (Image reviewed as well as reports no acute findings on CT or chest x-ray.), image reviewed Disposition Clinical Impression: Alcoholic intoxication, Altered mental status, Rhabdomyolysis, Delirium due to general medical condition Disposition: ADMITTED IP TO THIS HOSP Condition: Fair Referrals: None,Stated [Primary Care Provider] - 1-2 days Decision Date: 05/04/22 Decision Time: 12:30
[2022-05-04] MEDS ORDERED: NALOXONE 0.4 MG/ML 1 ML VIAL IV PRN (13:58)
[2022-05-04] MEDS ORDERED: THIAMINE 100 MG/ML 2 ML VIAL IM STA (14:01)
[2022-05-04] MEDS ORDERED: LORazepam 2 MG/ML INJ IV PRN ×3 (14:01)
[2022-05-04 14:21] LABS: Appearance,Urine Clear (Clear); Bacteria,Urine Rare /hpf; Bilirubin,Urine Negative (Negative); Blood,Urine Negative (Negative); Color,Urine Yellow; Glucose,Urine (UA) Negative (Negative); Ketones,Urine 1+ (Negative); Leukocyte Esterase,Urine Trace (Negative); Mucus,Urine Rare /hpf; Nitrite,Urine Negative (Negative); Protein,Urine Negative (Negative); RBC,Urine 1 /hpf (0-5); Specific Gravity,Urine 1.042 (1.001-1.035); Squamous Epithelial Cell,Urine 1 /hpf (0-4); WBC,Urine 3 /hpf (0-5)
[2022-05-04 14:23] LABS: Amphetamine Screen,Urine Not Detected (NotDetected); Barbiturate Screen,Urine Not Detected (NotDetected); Benzodiazepines Screen,Urine Not Detected (NotDetected); Cocaine Screen,Urine Not Detected (NotDetected); Methadone Screen, Urine Not Detected (NotDetected); Opiate Screen,Urine Not Detected (NotDetected); Oxycodone Screen, Urine Not Detected (NotDetected); Phencyclidine Screen,Urine Not Detected (NotDetected); Tricyclic Antidepressant,Urine Not Detected (NotDetected); Urn Cannabinoid Scrn Not Detected (NotDetected)
[2022-05-04] MEDS: SODIUM CHLORIDE 0.9% 1,000 ML IV SCH ×2 (17:15→22:54)
[2022-05-04] MEDS: THIAMINE 100 MG TAB PO SCH (17:15)
[2022-05-04] MEDS ORDERED: THIAMINE 100 MG TAB PO SCH (17:30)
[2022-05-04] MEDS ORDERED: LORazepam 1 MG/0.5 ML VIAL IV PRN (22:41)
[2022-05-04] MEDS: LORazepam 1 MG/0.5 ML VIAL IV PRN (22:52)
--- NOTE | 2022-05-04 23:27 | HP ---
HISTORY AND PHYSICAL CHIEF COMPLAINT: Alcohol withdrawal. HISTORY OF PRESENT ILLNESS: This is a 66-year-old gentleman who had a history of significant alcohol intake. No other significant medical issues, not being following with primary physician, is admitted with alcohol withdrawal. The patient apparently drinks 6 packs of alcohol. The patient had features of rhabdomyolysis. COVID is negative. There is no history of any fever, rigors, or chills at this time. PAST MEDICAL HISTORY: No significant cardiorespiratory illness except alcohol intake. HOME MEDICATIONS: Reviewed, none. ALLERGIES: None. FAMILY HISTORY: No history of heart disease or strokes in the family. SOCIAL HISTORY: Smoking alcohol. REVIEW OF SYSTEMS: A 14-point review of systems is negative except as mentioned earlier. PHYSICAL EXAMINATION: VITAL SIGNS: Pulse is 80, blood pressure 148/90, respirations 20. HEENT: Conjunctivae normal. NECK: No JVD. CARDIOVASCULAR: S1, S2 muffled. RESPIRATION: Breath sounds diminished at the bases. Scattered rhonchi and crackles. ABDOMEN: Soft. LEGS: No edema. NERVOUS SYSTEM: Diffusely weak. LABS: Reviewed include lactic acid 3.2, sodium 130, potassium 3.9. ASSESSMENT: 1. Acute alcohol withdrawal and early delirium tremens. 2. History of smoking. 3. Acute rhabdomyolysis, possibly due to alcohol. RECOMMENDATIONS AND DISCUSSION: This is a 66-year-old gentleman who presented with multiple complex medical issues. We will monitor the patient closely. Recommend Ativan IV p.r.n. CIWA protocol. Social Work consultation. Otherwise, continue to monitor. Prognosis guarded because of multiple complex medical conditions. Further recommendations to follow. See orders for further details. The patient might need alcohol cessation. Advised rehab and possible AA meetings post discharge. Also see orders. Prognosis guarded. MMODL / IJN: [id number] /
[2022-05-05] MEDS: LORazepam 1 MG/0.5 ML VIAL IV PRN ×6 (01:28→22:39)
[2022-05-05] MEDS: SODIUM CHLORIDE 0.9% 1,000 ML IV SCH ×3 (01:31→15:42)
[2022-05-05] MEDS: THIAMINE 100 MG TAB PO SCH ×2 (07:45→17:43)
[2022-05-05 13:26] VITALS: BMI 24.3
[2022-05-05] MEDS: FOLIC ACID 1 MG TAB PO SCH (13:55)
[2022-05-05] MEDS: MULTIVITAMINS, THERA 1 EACH TAB PO SCH (13:55)
--- NOTE | 2022-05-05 15:18 | P.PN ---
Subjective Progress Note Date: 05/05/22 This is a 66-year-old male who was recently admitted with a past medical history of significant alcohol use and admitted with alcohol withdrawal and is being closely monitored. Patient also with features of rhabdomyolysis and is maintained on IV hydration. Patient continues on CIWA protocol and also con tinues with significant weakness. Case management following as physical therapy recommending ECF and patient along with family are agreeable. Patient is currently afebrile denies chest pain or shortness of breath. Patient's blood pressure mildly elevated recommend monitoring closely and will repeat labs. Patient denies nausea or vomiting and is tolerating oral intake. Review of systems: Constitutional: No reports of fatigue, fever, or chills Cardiovascular: No reports of chest pain or palpitations Respiratory: No reports of shortness of breath or cough GI: No reports of nausea, no reports of of vomiting, reports tolerating diet : No reports of dysuria or retention Neurovascular: reports of generalized weakness All medications have been reviewed Active Medications Folic Acid (Folic Acid 1 Mg Tab) 1 mg PO DAILY@1200 [facility] Last Admin: 05/05/22 13:55 Dose: 1 mg Sodium Chloride (Saline 0.9%) 1,000 mls @ 130 mls/hr IV .[id number] [facility] Last Admin: 05/05/22 07:47 Dose: 130 mls/hr Lorazepam (Lorazepam 1 Mg/0.5 Ml Vial) 1 mg IV Q2HR PRN PRN Reason: CIWA 8 or 9 Last Admin: 05/05/22 01:28 Dose: 1 mg Lorazepam (Lorazepam 1 Mg/0.5 Ml Vial) 1 mg IV Q1HR PRN PRN Reason: CIWA 10 to 15 Last Admin: 05/05/22 05:17 Dose: 1 mg Lorazepam (Lorazepam 1 Mg/0.5 Ml Vial) 2 mg IV Q10M PRN PRN Reason: CIWA 16 or higher Stop: 05/06/22 14:01 Multivitamins (Multivitamins, Thera 1 Each Tab) 1 each PO DAILY@1200 [facility] Last Admin: 05/05/22 13:55 Dose: 1 each Naloxone HCl (Naloxone 0.4 Mg/Ml 1 Ml Vial) 0.2 mg IV Q2M PRN PRN Reason: Opioid Reversal Thiamine HCl (Thiamine 100 Mg Tab) 100 mg PO BID-W/MEALS [facility] Last Admin: 05/05/22 07:45 Dose: 100 mg PHYSICAL EXAMINATION: GENERAL: The patient is alert and oriented x3, Well developed, well nourished. HEENT: Pupils are round and equally reacting to light. EOMI. no scleral icterus. No conjunctival pallor. Normocephalic, atraumatic. No pharyngeal erythema. No thyromegaly. CARDIOVASCULAR: S1 and S2 muffled PULMONARY: diminished breath sounds bilaterally with no wheezing or rhonchi note d. ABDOMEN: soft. Nontender on exam. non-distended, normoactive bowel sounds. No palpable organomegaly. MUSCULOSKELETAL: No joint swelling or deformity. EXTREMITIES: No cyanosis, clubbing, or pedal edema. NEUROLOGICAL: Gross neurological examination did not reveal any focal deficits. Diffuse weakness SKIN: No rashes. Assessment: Acute alcohol withdrawal and early delirium tremens Continued ongoing nicotine dependence Acute rhabdomyolysis possibly due to alcohol History of anxiety/depression Gait dysfunction GI prophylaxis DVT prophylaxis Full code Plan: Recommend to continue with current medications and management and continue CIWA protocol. Continue IV hydration and will decrease the rate and recommend repeat labs. Patient has been seen and evaluated by PT/OT therapy recommending rehab and patient and family are agreeable and case management is following working on accepting facility. Due to multiple complex medical issues, prognosis is guarded. Possible discharge in 24-48 hours. The impression and plan of care has been dictated by Leticia Hardy, nurse practitioner as directed. Dr. Kj MD I have performed a history and examination and MDM of this patient, discussed the same with the dictator, and agree with the dictator's assessment and plan as written ,documented as a scribe. Based on total visit time, I have performed more than 50% of the visit. Any additional findings or plans will be noted. Objective - Vital Signs Vital signs: Vital Signs Temp 99.0 F 05/05/22 11:19 Pulse 77 05/05/22 11:19 Resp 16 05/05/22 11:19 BP 147/70 05/05/22 11:19 Pulse Ox 93 L 05/05/22 11:19 FiO2 Intake & Output 05/04/22 05/05/22 05/05/22 18:59 06:59 18:59 Intake Total 240 Output Total 300 Balance -300 240 Weight 72.575 kg 72.575 kg Intake: Oral 240 Output: Urine 300 Other: Voiding Method Urinal Urinal Diaper Diaper Incontinent Incontinent # Voids 1 - Labs CBC & Chem 7: 05/04/22 10:00 05/04/22 10:00
[2022-05-06] MEDS: LORazepam 1 MG/0.5 ML VIAL IV PRN ×8 (00:03→23:26)
[2022-05-06] MEDS: SODIUM CHLORIDE 0.9% 1,000 ML IV SCH ×2 (01:52→14:38)
[2022-05-06] MEDS: THIAMINE 100 MG TAB PO SCH ×2 (07:05→17:47)
[2022-05-06 09:30] LABS: African American GFR (CKD) 123.1 (60.0-200.0); Albumin/Globulin Ratio 1.74 (1.60-3.17); Anion Gap 13.6 mmol/L (10.00-18.00); Blood Urea Nitrogen 9.6 mg/dL (9.0-27.0); Calcium 8.8 mg/dL (8.7-10.3); Carbon Dioxide 21.4 mmol/L (20.0-27.5); Globulin 2.3 g/dL (1.6-3.3); Magnesium 1.9 mg/dL (1.5-2.4); Non-African American GFR(CKD) 106.3 (60.0-200.0); Potassium 3.4 mmol/L (3.5-5.5); Total Bilirubin 1.4 mg/dL (0.30-1.20); Total Protein 6.3 g/dL (6.2-8.2)
[2022-05-06] MEDS ORDERED: Potassium Replacement Protocol 1 EACH MISC MISCELLANE PRN (10:26)
[2022-05-06] MEDS: MULTIVITAMINS, THERA 1 EACH TAB PO SCH (11:05)
[2022-05-06] MEDS: POTASSIUM CHLORIDE ER 20 MEQ TAB.ER PO SCH ×2 (11:05→12:13)
[2022-05-06] MEDS: FOLIC ACID 1 MG TAB PO SCH (11:05)
[2022-05-06] MEDS: chlordiazePOXIDE 25 MG CAP PO SCH ×2 (14:36→20:55)
[2022-05-06] MEDS: LORazepam 1 MG TAB PO PRN (15:40)
--- NOTE | 2022-05-06 16:02 | P.PN ---
Subjective Progress Note Date: 05/06/22 This is a 66-year-old male who was recently admitted with a past medical history of significant alcohol use and admitted with alcohol withdrawal and is being closely monitored. Patient also with features of rhabdomyolysis and is maintained on IV hydration. Patient continues on CIWA protocol and also con tinues with significant weakness. Case management following as physical therapy recommending ECF and patient along with family are agreeable. Patient is currently afebrile denies chest pain or shortness of breath. Patient's blood pressure mildly elevated recommend monitoring closely and will repeat labs. Patient denies nausea or vomiting and is tolerating oral intake. 05/06/2022 Patient is seen and evaluated in follow-up this morning continues to be confused and redirects easily maintained on CIWA protocol. Patient also continues on IV hydration and creatinine kinase is improved from 1401 on admission down to 802. Patient continues to require IV Ativan and will add oral Ativan and also Librium taper. Will add Seroquel at night as patient continues to have confusion needing redirection. Currently a sitter at the bedside for safety. Patient is afebrile and denies chest pain or shortness of breath. Patient is tolerating diet although has no teeth and has been changed to dysphagia ground diet. Potassium was 3.4 today and will replace and recommend repeat labs. Magnesium was 1.9 today. Liver functions are trending down. Case management is following as patient continues with weakness and recommend physical therapy evaluation daily and plan is for ECF. Review of systems: Unable to completely assess as patient continues to be confused All medications have been reviewed Active Medications Chlordiazepoxide HCl (Chlordiazepoxide 25 Mg Cap) 50 mg PO TID [facility] Last Admin: 05/06/22 14:36 Dose: 50 mg Folic Acid (Folic Acid 1 Mg Tab) 1 mg PO DAILY@1200 [facility] Last Admin: 05/06/22 11:05 Dose: 1 mg Sodium Chloride (Saline 0.9%) 1,000 mls @ 75 mls/hr IV .[id number] [facility] Last Admin: 05/06/22 14:38 Dose: 75 mls/hr Lorazepam (Lorazepam 1 Mg/0.5 Ml Vial) 1 mg IV Q2HR PRN PRN Reason: CIWA 8 or 9 Last Admin: 05/05/22 19:49 Dose: 1 mg Lorazepam (Lorazepam 1 Mg/0.5 Ml Vial) 1 mg IV Q1HR PRN PRN Reason: CIWA 10 to 15 Last Admin: 05/06/22 10:10 Dose: 1 mg Lorazepam (Lorazepam 1 Mg Tab) 1 mg PO Q8HR PRN PRN Reason: Anxiety Last Admin: 05/06/22 15:40 Dose: 1 mg Miscellaneous Information (Potassium Replacement Protocol 1 Each Misc) 1 each MISCELLANE DAILY PRN; Protocol PRN Reason: Per Protocol Multivitamins (Multivitamins, Thera 1 Each Tab) 1 each PO DAILY@1200 [facility] Last Admin: 05/06/22 11:05 Dose: 1 each Naloxone HCl (Naloxone 0.4 Mg/Ml 1 Ml Vial) 0.2 mg IV Q2M PRN PRN Reason: Opioid Reversal Quetiapine Fumarate (Quetiapine 25 Mg Tab) 25 mg PO [facility] Thiamine HCl (Thiamine 100 Mg Tab) 100 mg PO BID-W/MEALS [facility] Last Admin: 05/06/22 07:05 Dose: 100 mg PHYSICAL EXAMINATION: GENERAL: The patient is alert and oriented x1-2, with intermittent periods of confusion, thin built, elderly appearing male HEENT: Pupils are round and equally reacting to light. EOMI. no scleral icterus. No conjunctival pallor. Normocephalic, atraumatic. No pharyngeal erythema. No thyromegaly. CARDIOVASCULAR: S1 and S2 muffled PULMONARY: diminished breath sounds bilaterally with no wheezing or rhonchi noted. ABDOMEN: soft. Nontender on exam. non-distended, normoactive bowel sounds. No palpable organomegaly. MUSCULOSKELETAL: No joint swelling or deformity. EXTREMITIES: No cyanosis, clubbing, or pedal edema. NEUROLOGICAL: Gross neurological examination did not reveal any focal deficits. Diffuse weakness SKIN: No rashes. Assessment: Acute alcohol withdrawal and early delirium tremens Continued ongoing nicotine dependence Acute rhabdomyolysis possibly due to alcohol History of anxiety/depression Gait dysfunction GI prophylaxis DVT prophylaxis Full code Plan: Recommend to continue with current medications and management and continue CIWA protocol. Continue IV hydration and will decrease the rate and recommend repeat labs. Potassium 3.4 today and replaced and recommend follow-up. Patient being followed by PT/OT therapy recommending rehab and patient and family are agreeable and case management is following working on accepting facility. Will also add Librium taper and oral Ativan along with Seroquel at night as patient continues to be confused although easily redirected. Due to multiple complex medical issues, prognosis is guarded. The impression and plan of care has been dictated by Leticia Hardy, nurse practitioner as directed. Dr. Bonnie MD I have performed a history and examination and MDM of this patient, discussed the same with the dictator, and agree with the dictator's assessment and plan as written ,documented as a scribe. Based on total visit time, I have performed more than 50% of the visit. Any additional findings or plans will be noted. Objective - Vital Signs Vital signs: Vital Signs Temp 98.2 F 05/06/22 03:57 Pulse 87 05/06/22 03:57 Resp 18 05/06/22 03:57 BP 143/89 05/06/22 03:57 Pulse Ox 93 L 05/06/22 03:57 FiO2 Intake & Output 05/05/22 05/06/22 05/06/22 18:59 06:59 18:59 Intake Total 1635 1622 Output Total 100 Balance 1635 1522 Weight 72.575 kg Intake: Intake, IV Titration 1395 900 Amount Sodium Chloride 0.9% 1, 1395 900 000 ml @ 75 mls/hr IV . [id number] [facility] Rx#:[id number] Oral 240 722 Output: Urine 100 Other: Voiding Method Urinal Urinal Toilet Diaper Diaper Urinal Incontinent Incontinent Diaper Incontinent # Voids 10 2 # Bowel Movements 1 - Labs CBC & Chem 7: 05/04/22 10:00 05/06/22 06:03 Labs: Abnormal Lab Results - Last 24 Hours (Table) 05/06/22 Range/Units 06:03 Sodium 134 L (135-145) mmol/L Potassium 3.4 L (3.5-5.5) mmol/L Total Bilirubin 1.40 H (0.30-1.20) mg/dL AST 147 H (14-35) U/L ALT 92 H (10-49) U/L Creatine Kinase 802 H (35-257) U/L
[2022-05-06 20:17] LABS: ALT 87 U/L (4-49); AST 153 U/L (17-59); African American GFR (CKD) >90 (>60 ml/min/1.73 sqM); Albumin 3.7 g/dL (3.5-5.0); Albumin/Globulin Ratio 1.3; Alkaline Phosphatase 75 U/L (38-126); Anion Gap 10 mmol/L; Blood Urea Nitrogen 10 mg/dL (9-20); Carbon Dioxide 22 mmol/L (22-30); Chloride 102 mmol/L (98-107); Globulin 2.8 g/dL; Glucose 114 mg/dL (74-99); Non-African American GFR(CKD) >90 (>60 ml/min/1.73 sqM); Sodium 134 mmol/L (137-145); Total Bilirubin 1.7 mg/dL (0.2-1.3); Total Protein 6.5 g/dL (6.3-8.2)
[2022-05-06] MEDS: QUEtiapine 25 MG TAB PO SCH (21:07)
[2022-05-07] MEDS: LORazepam 1 MG/0.5 ML VIAL IV PRN ×4 (01:07→21:50)
[2022-05-07] MEDS: SODIUM CHLORIDE 0.9% 1,000 ML IV SCH ×2 (05:51→09:58)
[2022-05-07] MEDS: THIAMINE 100 MG TAB PO SCH ×2 (09:58→16:51)
[2022-05-07] MEDS: MULTIVITAMINS, THERA 1 EACH TAB PO SCH (09:58)
[2022-05-07] MEDS: FOLIC ACID 1 MG TAB PO SCH (09:58)
[2022-05-07] MEDS: chlordiazePOXIDE 25 MG CAP PO SCH ×3 (09:58→21:50)
[2022-05-07 11:47] LABS: ALT 86 U/L (4-49); AST 121 U/L (17-59); African American GFR (CKD) >90 (>60 ml/min/1.73 sqM); Albumin 3.8 g/dL (3.5-5.0); Albumin/Globulin Ratio 1.3; Alkaline Phosphatase 78 U/L (38-126); Anion Gap 10 mmol/L; Blood Urea Nitrogen 10 mg/dL (9-20); Calcium 8.3 mg/dL (8.4-10.2); Carbon Dioxide 22 mmol/L (22-30); Chloride 102 mmol/L (98-107); Globulin 2.9 g/dL; Glucose 85 mg/dL (74-99); Non-African American GFR(CKD) >90 (>60 ml/min/1.73 sqM); Potassium 3.6 mmol/L (3.5-5.1); Sodium 134 mmol/L (137-145); Total Protein 6.7 g/dL (6.3-8.2)
[2022-05-07] MEDS: QUEtiapine 25 MG TAB PO SCH (21:54)
--- NOTE | 2022-05-07 22:19 | P.PN ---
Subjective Progress Note Date: 05/07/22 This is a 66-year-old male who was recently admitted with a past medical history of significant alcohol use and admitted with alcohol withdrawal and is being closely monitored. Patient also with features of rhabdomyolysis and is maintained on IV hydration. Patient continues on CIWA protocol and also cont inues with significant weakness. Case management following as physical therapy recommending ECF and patient along with family are agreeable. Patient is currently afebrile denies chest pain or shortness of breath. Patient's blood pressure mildly elevated recommend monitoring closely and will repeat labs. Patient denies nausea or vomiting and is tolerating oral intake. 05/06/2022 Patient is seen and evaluated in follow-up this morning continues to be confused and redirects easily maintained on CIWA protocol. Patient also continues on IV hydration and creatinine kinase is improved from 1401 on admission down to 802. Patient continues to require IV Ativan and will add oral Ativan and also Librium taper. Will add Seroquel at night as patient continues to have confusion needing redirection. Currently a sitter at the bedside for safety. Patient is afebrile and denies chest pain or shortness of breath. Patient is tolerating diet although has no teeth and has been changed to dysphagia ground diet. Potassium was 3.4 today and will replace and recommend repeat labs. Magnesium was 1.9 today. Liver functions are trending down. Case management is following as patient continues with weakness and recommend physical therapy evaluation daily and plan is for ECF. 05/07/2022 Patient is evaluated today resting in bed. He does have tremors noted with arms extended. Less confused today. He is able to hold a conversation. Labs today showing a sodium level of 134, potassium level 3.6, BUN 10, creatinine 0.48. Total bilirubini 2.0, liver enzymes stable. He continues on normal saline at 75 mls per hour. Will repeat sodium in the AM. He is requiring IV ativan about twice a day, seroquel at HS, and also he is on librium taper currently 25 mg PO TID. Blood pressure 147/85, heart rate 68, afebrile, 96% room air. Sitter no longer at bedside. Patient does not currently have accepting facility to ECF. Follow up on Monday when case management returns. PHYSICAL EXAMINATION: GENERAL: The patient is alert and oriented x2, with intermittent periods of confusion, thin built, elderly appearing male HEENT: Pupils are round and equally reacting to light. EOMI. no scleral icterus. No conjunctival pallor. Normocephalic, atraumatic. No pharyngeal erythema. No thyromegaly. CARDIOVASCULAR: S1 and S2 muffled PULMONARY: diminished breath sounds bilaterally with no wheezing or rhonchi noted. ABDOMEN: soft. Nontender on exam. non-distended, normoactive bowel sounds. No palpable organomegaly. MUSCULOSKELETAL: No joint swelling or deformity. EXTREMITIES: No cyanosis, clubbing, or pedal edema. NEUROLOGICAL: Gross neurological examination did not reveal any focal deficits. Diffuse weakness SKIN: No rashes. Assessment: Acute alcohol withdrawal and early delirium tremens Continued ongoing nicotine dependence Thrombocytopenia most likely from chronic alcohol use Acute rhabdomyolysis possibly due to alcohol Hyponatremia, hypovolemic from poor oral intake History of anxiety/depression Gait dysfunction GI prophylaxis DVT prophylaxis Full code Plan: Continue IV fluids Repeat labs in AM Continue librium and seroqul CIWA protocol Monitor for acute alcohol withdrawal seizure Replace electrolytes as needed Repeat labs in AM Pending ECF placement which most likely wont' happen until Monday The impression and plan of care has been dictated by Dulce Amos Nurse Practitioner as directed. Dr. Bonnie MD I have performed a history and physical examination and medical decision making of this patient, discussed the same with the dictator, and agree with the dictators assessment and plan as written, documented as a scribe. Based on total visit time, I have performed more than 50% of this visit. Objective - Vital Signs Vital signs: Vital Signs Temp 98 F 05/07/22 11:53 Pulse 88 05/07/22 11:53 Resp 20 05/07/22 11:53 BP 138/81 05/07/22 11:53 Pulse Ox 94 L 05/07/22 11:53 FiO2 Intake & Output 05/06/22 05/07/22 05/07/22 18:59 06:59 18:59 Other: Voiding Method Toilet Urinal Urinal Urinal Diaper Diaper Diaper Incontinent Incontinent Incontinent # Voids 2 10 3 - Labs CBC & Chem 7: 05/04/22 10:00 05/07/22 11:13 Labs: Abnormal Lab Results - Last 24 Hours (Table) 05/06/22 05/07/22 Range/Units 19:46 11:13 Sodium 134 L 134 L (137-145) mmol/L Creatinine 0.58 L 0.48 L (0.66-1.25) mg/dL Glucose 114 H (74-99) mg/dL Calcium 8.3 L (8.4-10.2) mg/dL Total Bilirubin 1.7 H 2.0 H (0.2-1.3) mg/dL AST 153 H 121 H (17-59) U/L ALT 87 H 86 H (4-49) U/L Assessment and Plan Time with Patient: Less than 30
[2022-05-08] MEDS: LORazepam 1 MG/0.5 ML VIAL IV PRN ×2 (00:56→10:46)
[2022-05-08] MEDS: PANTOPRAZOLE 40 MG/10 ML VIAL IVP SCH (08:37)
[2022-05-08] MEDS: HEPARIN SODIUM,PORCINE/PF 5,000 UNIT/0.5 ML SYRINGE SQ SCH ×2 (08:37→21:36)
[2022-05-08] MEDS: THIAMINE 100 MG TAB PO SCH ×2 (08:38→16:31)
[2022-05-08] MEDS: SODIUM CHLORIDE 0.9% 1,000 ML IV SCH ×2 (08:38→13:47)
[2022-05-08] MEDS: chlordiazePOXIDE 25 MG CAP PO SCH ×3 (08:48→21:36)
[2022-05-08] MEDS: LOSARTAN 25 MG TAB PO SCH (10:36)
[2022-05-08 10:41] LABS: HCT 40.9 % (39.6-50.0); HGB 13.9 g/dL (13.0-17.0); MCH 32.3 pg (27.0-32.0); MCV 94.9 fL (80.0-97.0); NRBC Per 100 WBC 0 /100 WBCS (0.0-0.0); Platelet Count 82 X 10*3/uL (140-440); RBC 4.31 X 10*6/uL (4.40-5.60); RDW 13.7 % (11.5-14.5); WBC 5.36 X 10*3/uL (4.50-10.00)
[2022-05-08 11:56] LABS: African American GFR (CKD) 117.5 (60.0-200.0); Anion Gap 14.6 mmol/L (10.00-18.00); BUN/Creat Ratio 14.88 Ratio (12.00-20.00); Calcium 8.6 mg/dL (8.7-10.3); Carbon Dioxide 20.8 mmol/L (20.0-27.5); Non-African American GFR(CKD) 101.4 (60.0-200.0); Potassium 3.6 mmol/L (3.5-5.5)
[2022-05-08] MEDS: FOLIC ACID 1 MG TAB PO SCH (13:47)
[2022-05-08] MEDS: MULTIVITAMINS, THERA 1 EACH TAB PO SCH (13:47)
[2022-05-08] MEDS: QUEtiapine 25 MG TAB PO SCH (21:36)
--- NOTE | 2022-05-08 22:48 | P.PN ---
Subjective Progress Note Date: 05/08/22 This is a 66-year-old male who was recently admitted with a past medical history of significant alcohol use and admitted with alcohol withdrawal and is being closely monitored. Patient also with features of rhabdomyolysis and is maintained on IV hydration. Patient continues on CIWA protocol and also cont inues with significant weakness. Case management following as physical therapy recommending ECF and patient along with family are agreeable. Patient is currently afebrile denies chest pain or shortness of breath. Patient's blood pressure mildly elevated recommend monitoring closely and will repeat labs. Patient denies nausea or vomiting and is tolerating oral intake. 05/06/2022 Patient is seen and evaluated in follow-up this morning continues to be confused and redirects easily maintained on CIWA protocol. Patient also continues on IV hydration and creatinine kinase is improved from 1401 on admission down to 802. Patient continues to require IV Ativan and will add oral Ativan and also Librium taper. Will add Seroquel at night as patient continues to have confusion needing redirection. Currently a sitter at the bedside for safety. Patient is afebrile and denies chest pain or shortness of breath. Patient is tolerating diet although has no teeth and has been changed to dysphagia ground diet. Potassium was 3.4 today and will replace and recommend repeat labs. Magnesium was 1.9 today. Liver functions are trending down. Case management is following as patient continues with weakness and recommend physical therapy evaluation daily and plan is for ECF. 05/07/2022 Patient is evaluated today resting in bed. He does have tremors noted with arms extended. Less confused today. He is able to hold a conversation. Labs today showing a sodium level of 134, potassium level 3.6, BUN 10, creatinine 0.48. Total bilirubini 2.0, liver enzymes stable. He continues on normal saline at 75 mls per hour. Will repeat sodium in the AM. He is requiring IV ativan about twice a day, seroquel at HS, and also he is on librium taper currently 25 mg PO TID. Blood pressure 147/85, heart rate 68, afebrile, 96% room air. Sitter no longer at bedside. Patient does not currently have accepting facility to ECF. Follow up on Monday when case management returns. 05/08/2022 Patient continues on IV ativan for acute alcohol withdrawal delirum tremens. He is also on librium, seroquel. No sitter at bedside. No acute event overnight. Mentation is improving. Sodium has improved to 135, potassium 3.6, magnesium 2.0. Continues on normal saline. Blood pressure 148/86. Increase activity level, encourage diet. Pending subacute rehab, having issues finding accepting facility. PHYSICAL EXAMINATION: GENERAL: The patient is alert and oriented x2, with intermittent periods of confusion, thin built, elderly appearing male HEENT: Pupils are round and equally reacting to light. EOMI. no scleral icterus. No conjunctival pallor. Normocephalic, atraumatic. No pharyngeal erythema. No thyromegaly. CARDIOVASCULAR: S1 and S2 muffled PULMONARY: diminished breath sounds bilaterally with no wheezing or rhonchi noted. ABDOMEN: soft. Nontender on exam. non-distended, normoactive bowel sounds. No palpable organomegaly. MUSCULOSKELETAL: No joint swelling or deformity. EXTREMITIES: No cyanosis, clubbing, or pedal edema. NEUROLOGICAL: Gross neurological examination did not reveal any focal deficits. Diffuse weakness SKIN: No rashes. Assessment: Acute alcohol withdrawal and early delirium tremens Continued ongoing nicotine dependence Thrombocytopenia most likely from chronic alcohol use Acute rhabdomyolysis possibly due to alcohol Hyponatremia, hypovolemic from poor oral intake improved with IV fluids History of anxiety/depression Gait dysfunction GI prophylaxis DVT prophylaxis Full code Plan: Continue IV fluids Continue librium and seroquel [facility] protocol Monitor for acute alcohol withdrawal seizure Replace electrolytes as needed Pending ECF placement which most likely wont' happen until Monday The impression and plan of care has been dictated by Dulce Amos, Nurse Practitioner as directed. Dr. Bonnie MD I have performed a history and physical examination and medical decision making of this patient, discussed the same with the dictator, and agree with the dictators assessment and plan as written, documented as a scribe. Based on total visit time, I have performed more than 50% of this visit. Objective - Vital Signs Vital signs: Vital Signs Temp 98.6 F 05/08/22 04:28 Pulse 69 05/08/22 04:28 Resp 18 05/08/22 04:28 BP 148/86 05/08/22 04:28 Pulse Ox 94 L 05/08/22 04:28 FiO2 Intake & Output 05/07/22 05/08/22 05/08/22 18:59 06:59 18:59 Intake Total 900 Balance 900 Intake: IV 900 Sodium Chloride 0.9% 1, 900 000 ml @ 75 mls/hr IV . [id number] [facility] Rx#:[id number] Other: Voiding Method Urinal Incontinent Diaper Incontinent # Voids 4 6 - Labs CBC & Chem 7: 05/08/22 05:45 05/08/22 05:45 Labs: Abnormal Lab Results - Last 24 Hours (Table) 05/07/22 Range/Units 11:13 Sodium 134 L (137-145) mmol/L Creatinine 0.48 L (0.66-1.25) mg/dL Calcium 8.3 L (8.4-10.2) mg/dL Total Bilirubin 2.0 H (0.2-1.3) mg/dL AST 121 H (17-59) U/L ALT 86 H (4-49) U/L Assessment and Plan Time with Patient: Less than 30
[2022-05-09] MEDS: SODIUM CHLORIDE 0.9% 1,000 ML IV SCH ×3 (03:24→21:44)
[2022-05-09] MEDS: chlordiazePOXIDE 25 MG CAP PO SCH ×3 (08:55→21:43)
[2022-05-09] MEDS: THIAMINE 100 MG TAB PO SCH ×2 (08:55→15:46)
[2022-05-09] MEDS: PANTOPRAZOLE 40 MG/10 ML VIAL IVP SCH (08:56)
[2022-05-09] MEDS: HEPARIN SODIUM,PORCINE/PF 5,000 UNIT/0.5 ML SYRINGE SQ SCH ×2 (08:56→21:44)
[2022-05-09] MEDS: LOSARTAN 25 MG TAB PO SCH (08:57)
[2022-05-09] MEDS: MULTIVITAMINS, THERA 1 EACH TAB PO SCH (08:57)
[2022-05-09] MEDS: FOLIC ACID 1 MG TAB PO SCH (09:00)
--- NOTE | 2022-05-09 15:18 | P.PN ---
Subjective Progress Note Date: 05/09/22 This is a 66-year-old male who was recently admitted with a past medical history of significant alcohol use and admitted with alcohol withdrawal and is being closely monitored. Patient also with features of rhabdomyolysis and is maintained on IV hydration. Patient continues on CIWA protocol and also cont inues with significant weakness. Case management following as physical therapy recommending ECF and patient along with family are agreeable. Patient is currently afebrile denies chest pain or shortness of breath. Patient's blood pressure mildly elevated recommend monitoring closely and will repeat labs. Patient denies nausea or vomiting and is tolerating oral intake. 05/06/2022 Patient is seen and evaluated in follow-up this morning continues to be confused and redirects easily maintained on CIWA protocol. Patient also continues on IV hydration and creatinine kinase is improved from 1401 on admission down to 802. Patient continues to require IV Ativan and will add oral Ativan and also Librium taper. Will add Seroquel at night as patient continues to have confusion needing redirection. Currently a sitter at the bedside for safety. Patient is afebrile and denies chest pain or shortness of breath. Patient is tolerating diet although has no teeth and has been changed to dysphagia ground diet. Potassium was 3.4 today and will replace and recommend repeat labs. Magnesium was 1.9 today. Liver functions are trending down. Case management is following as patient continues with weakness and recommend physical therapy evaluation daily and plan is for ECF. 05/07/2022 Patient is evaluated today resting in bed. He does have tremors noted with arms extended. Less confused today. He is able to hold a conversation. Labs today showing a sodium level of 134, potassium level 3.6, BUN 10, creatinine 0.48. Total bilirubini 2.0, liver enzymes stable. He continues on normal saline at 75 mls per hour. Will repeat sodium in the AM. He is requiring IV ativan about twice a day, seroquel at HS, and also he is on librium taper currently 25 mg PO TID. Blood pressure 147/85, heart rate 68, afebrile, 96% room air. Sitter no longer at bedside. Patient does not currently have accepting facility to ECF. Follow up on Monday when case management returns. 05/08/2022 Patient continues on IV ativan for acute alcohol withdrawal delirum tremens. He is also on librium, seroquel. No sitter at bedside. No acute event overnight. Mentation is improving. Sodium has improved to 135, potassium 3.6, magnesium 2.0. Continues on normal saline. Blood pressure 148/86. Increase activity level, encourage diet. Pending subacute rehab, having issues finding accepting facility. 05/09/2022 Patient today is doing well he is alert x 2-3. No acute events overnight, has not had sitter at the bedside. Tremors have resolved. He has not required IV ativan overnight. He does report increasing diet and has been eating and drinking well. He is afebrile, heart rate 75, blood pressure 106/72, 93% room air. Family is wanting evaluation for short term memory loss speech therapy has been consulted. Discussed clinical course and plan of care with family over the phone. There is no power of estate attorney in place. Patient will need subacute rehab, daughter would like permanent placement. Requesting to speak with case management tomorrow regarding discharge planning. PHYSICAL EXAMINATION: GENERAL: The patient is alert and oriented x2-3, thin built, elderly appearing male HEENT: Pupils are round and equally reacting to light. EOMI. no scleral icterus. No conjunctival pallor. Normocephalic, atraumatic. No pharyngeal erythema. No thyromegaly. CARDIOVASCULAR: S1 and S2 muffled PULMONARY: diminished breath sounds bilaterally with no wheezing or rhonchi noted. ABDOMEN: soft. Nontender on exam. non-distended, normoactive bowel sounds. No palpable organomegaly. MUSCULOSKELETAL: No joint swelling or deformity. EXTREMITIES: No cyanosis, clubbing, or pedal edema. NEUROLOGICAL: Gross neurological examination did not reveal any focal deficits. Diffuse weakness Tremors have resolved SKIN: No rashes. Assessment: Acute alcohol withdrawal and early delirium tremens, resolved Continued ongoing nicotine dependence Thrombocytopenia most likely from chronic alcohol use, improving Acute rhabdomyolysis possibly due to alcohol Hyponatremia, hypovolemic from poor oral intake improved with IV fluids History of anxiety/depression Gait dysfunction GI prophylaxis DVT prophylaxis Full code Plan: Continue IV fluids Continue librium and seroquel [facility] protocol Monitor for acute alcohol withdrawal seizure Replace electrolytes as needed Check B12 and Folate Speech therapy consult for cognitive testing. Pending ECF placement and discharge planning, family requesting to follow up with window caser on Monday. The impression and plan of care has been dictated by Dulce Amos, Nurse Practitioner as directed. Dr. Bonnie MD I have performed a history and physical examination and medical decision making of this patient, discussed the same with the dictator, and agree with the dictators assessment and plan as written, documented as a scribe. Based on total visit time, I have performed more than 50% of this visit. Objective - Vital Signs Vital signs: Vital Signs Temp 98.5 F 05/09/22 11:10 Pulse 75 05/09/22 11:10 Resp 16 05/09/22 11:10 BP 106/72 05/09/22 11:10 Pulse Ox 93 L 05/09/22 11:10 FiO2 Intake & Output 05/08/22 05/09/22 05/09/22 18:59 06:59 18:59 Output Total 1 Balance -1 Output: Urine 1 Other: Voiding Method Incontinent Urinal Urinal Incontinent Incontinent # Voids 1 1 - Labs CBC & Chem 7: 05/08/22 05:45 05/08/22 05:45 Assessment and Plan Time with Patient: Less than 30
[2022-05-09] MEDS: QUEtiapine 25 MG TAB PO SCH (21:43)
[2022-05-10] MEDS: SODIUM CHLORIDE 0.9% 1,000 ML IV SCH ×2 (05:41→23:05)
[2022-05-10] MEDS: LOSARTAN 25 MG TAB PO SCH (08:49)
[2022-05-10] MEDS: THIAMINE 100 MG TAB PO SCH ×2 (08:49→20:09)
[2022-05-10] MEDS: PANTOPRAZOLE 40 MG TABLET PO SCH (08:49)
[2022-05-10] MEDS: chlordiazePOXIDE 25 MG CAP PO SCH ×3 (08:50→21:24)
[2022-05-10] MEDS: HEPARIN SODIUM,PORCINE/PF 5,000 UNIT/0.5 ML SYRINGE SQ SCH ×2 (08:50→21:24)
[2022-05-10] MEDS: MULTIVITAMINS, THERA 1 EACH TAB PO SCH (12:41)
[2022-05-10] MEDS: FOLIC ACID 1 MG TAB PO SCH (12:41)
[2022-05-10] MEDS: QUEtiapine 25 MG TAB PO SCH (21:24)
--- NOTE | 2022-05-11 06:44 | P.PN ---
Subjective Progress Note Date: 05/10/22 This is a 66-year-old male who was recently admitted with a past medical history of significant alcohol use and admitted with alcohol withdrawal and is being closely monitored. Patient also with features of rhabdomyolysis and is maintained on IV hydration. Patient continues on CIWA protocol and also con tinues with significant weakness. Case management following as physical therapy recommending ECF and patient along with family are agreeable. Patient is currently afebrile denies chest pain or shortness of breath. Patient's blood pressure mildly elevated recommend monitoring closely and will repeat labs. Patient denies nausea or vomiting and is tolerating oral intake. 05/06/2022 Patient is seen and evaluated in follow-up this morning continues to be confused and redirects easily maintained on CIWA protocol. Patient also continues on IV hydration and creatinine kinase is improved from 1401 on admission down to 802. Patient continues to require IV Ativan and will add oral Ativan and also Librium taper. Will add Seroquel at night as patient continues to have confusion needing redirection. Currently a sitter at the bedside for safety. Patient is afebrile and denies chest pain or shortness of breath. Patient is tolerating diet although has no teeth and has been changed to dysphagia ground diet. Potassium was 3.4 today and will replace and recommend repeat labs. Magnesium was 1.9 today. Liver functions are trending down. Case management is following as patient continues with weakness and recommend physical therapy evaluation daily and plan is for ECF. 05/07/2022 Patient is evaluated today resting in bed. He does have tremors noted with arms extended. Less confused today. He is able to hold a conversation. Labs today showing a sodium level of 134, potassium level 3.6, BUN 10, creatinine 0.48. Total bilirubini 2.0, liver enzymes stable. He continues on normal saline at 75 mls per hour. Will repeat sodium in the AM. He is requiring IV ativan about twice a day, seroquel at HS, and also he is on librium taper currently 25 mg PO TID. Blood pressure 147/85, heart rate 68, afebrile, 96% room air. Sitter no longer at bedside. Patient does not currently have accepting facility to ECF. Follow up on Monday when case management returns. 05/08/2022 Patient continues on IV ativan for acute alcohol withdrawal delirum tremens. He is also on librium, seroquel. No sitter at bedside. No acute event overnight. Mentation is improving. Sodium has improved to 135, potassium 3.6, magnesium 2.0. Continues on normal saline. Blood pressure 148/86. Increase activity level, encourage diet. Pending subacute rehab, having issues finding accepting facility. 05/09/2022 Patient today is doing well he is alert x 2-3. No acute events overnight, has not had sitter at the bedside. Tremors have resolved. He has not required IV ativan overnight. He does report increasing diet and has been eating and drinking well. He is afebrile, heart rate 75, blood pressure 106/72, 93% room air. Family is wanting evaluation for short term memory loss speech therapy has been consulted. Discussed clinical course and plan of care with family over the phone. There is no power of personal injury attorney in place. Patient will need subacute rehab, daughter would like permanent placement. Requesting to speak with case management tomorrow regarding discharge planning. 05/10/2022 Patient is seen and evaluated in follow-up and undergoing speech therapy evaluation for cognition with family at the bedside. Patient continues on Librium taper and not requiring ativan per nursing. Case management following and continuing to work on an accepting ecf. PT working with the patient today for updated notes as patient continues with weakness. Patient is afebrile and denies chest pain or shortness of breath. No reports of nausea or vomiting and tolerating diet. Will follow up with case management. Review of systems: Constitutional: No reports of fatigue, fever, or chills Cardiovascular: No reports of chest pain or palpitations Respiratory: No reports of shortness of breath or cough GI: No reports of nausea, vomiting, or diarrhea : No reports of dysuria or retention Neurovascular: reports of weakness All medications have been reviewed PHYSICAL EXAMINATION: GENERAL: The patient is alert and oriented x1-2, with intermittent periods of confusion, thin built, elderly appearing male HEENT: Pupils are round and equally reacting to light. EOMI. no scleral icterus. No conjunctival pallor. Normocephalic, atraumatic. No pharyngeal erythema. No thyromegaly. CARDIOVASCULAR: S1 and S2 muffled PULMONARY: diminished breath sounds bilaterally with no wheezing or rhonchi noted. ABDOMEN: soft. Nontender on exam. non-distended, normoactive bowel sounds. No palpable organomegaly. MUSCULOSKELETAL: No joint swelling or deformity. EXTREMITIES: No cyanosis, clubbing, or pedal edema. NEUROLOGICAL: Gross neurological examination did not reveal any focal deficits. Diffuse weakness SKIN: No rashes. Assessment: Acute alcohol withdrawal and early delirium tremens, resolved Continued ongoing nicotine dependence Thrombocytopenia most likely from chronic alcohol use, improving Acute rhabdomyolysis possibly due to alcohol Hyponatremia, hypovolemic from poor oral intake improved with IV fluids History of anxiety/depression Gait dysfunction GI prophylaxis DVT prophylaxis Full code Plan: Continue IV fluids Continue librium and seroquel CIWA protocol Monitor for acute alcohol withdrawal seizure Replace electrolytes as needed Check B12 and Folate Speech therapy at the bedside with family for cognitive testing. Pending ECF placement and discharge planning, family requesting to follow up with senior case manager The impression and plan of care has been dictated by Leticia Hardy, nurse practitioner as directed. Dr. Bailey MD I have performed a history and examination and MDM of this patient, discussed the same with the dictator, and agree with the dictator's assessment and plan as written ,documented as a scribe. Based on total visit time, I have performed more than 50% of the visit. Any additional findings or plans will be noted. Objective - Vital Signs Vital signs: Vital Signs Temp 97.5 F L 05/10/22 05:00 Pulse 78 05/10/22 05:00 Resp 18 05/10/22 05:00 BP 125/75 05/10/22 05:00 Pulse Ox 96 05/10/22 05:00 FiO2 Intake & Output 05/09/22 05/10/22 05/10/22 18:59 06:59 18:59 Intake Total 600 Output Total 151 Balance -151 600 Intake: Intake, IV Titration 600 Amount Sodium Chloride 0.9% 1, 600 000 ml @ 75 mls/hr IV . [id number] [facility] Rx#:[id number] Output: Urine 151 Other: Voiding Method Urinal Toilet Incontinent Urinal Diaper Incontinent # Voids 6 - Labs CBC & Chem 7: 05/08/22 05:45 05/08/22 05:45
[2022-05-11] MEDS: PANTOPRAZOLE 40 MG TABLET PO SCH (07:54)
[2022-05-11] MEDS: THIAMINE 100 MG TAB PO SCH ×2 (07:54→17:07)
[2022-05-11] MEDS: HEPARIN SODIUM,PORCINE/PF 5,000 UNIT/0.5 ML SYRINGE SQ SCH ×2 (07:54→21:44)
[2022-05-11] MEDS: chlordiazePOXIDE 25 MG CAP PO SCH ×3 (07:54→21:45)
[2022-05-11] MEDS: LOSARTAN 25 MG TAB PO SCH (07:54)
[2022-05-11] MEDS: LORazepam 1 MG TAB PO PRN (09:53)
[2022-05-11] MEDS: FOLIC ACID 1 MG TAB PO SCH (09:53)
[2022-05-11] MEDS: MULTIVITAMINS, THERA 1 EACH TAB PO SCH (09:54)
--- NOTE | 2022-05-11 16:53 | P.PN ---
Subjective Progress Note Date: 05/11/22 This is a 66-year-old male who was recently admitted with a past medical history of significant alcohol use and admitted with alcohol withdrawal and is being closely monitored. Patient also with features of rhabdomyolysis and is maintained on IV hydration. Patient continues on CIWA protocol and also con tinues with significant weakness. Case management following as physical therapy recommending ECF and patient along with family are agreeable. Patient is currently afebrile denies chest pain or shortness of breath. Patient's blood pressure mildly elevated recommend monitoring closely and will repeat labs. Patient denies nausea or vomiting and is tolerating oral intake. 05/06/2022 Patient is seen and evaluated in follow-up this morning continues to be confused and redirects easily maintained on CIWA protocol. Patient also continues on IV hydration and creatinine kinase is improved from 1401 on admission down to 802. Patient continues to require IV Ativan and will add oral Ativan and also Librium taper. Will add Seroquel at night as patient continues to have confusion needing redirection. Currently a sitter at the bedside for safety. Patient is afebrile and denies chest pain or shortness of breath. Patient is tolerating diet although has no teeth and has been changed to dysphagia ground diet. Potassium was 3.4 today and will replace and recommend repeat labs. Magnesium was 1.9 today. Liver functions are trending down. Case management is following as patient continues with weakness and recommend physical therapy evaluation daily and plan is for ECF. 05/07/2022 Patient is evaluated today resting in bed. He does have tremors noted with arms extended. Less confused today. He is able to hold a conversation. Labs today showing a sodium level of 134, potassium level 3.6, BUN 10, creatinine 0.48. Total bilirubini 2.0, liver enzymes stable. He continues on normal saline at 75 mls per hour. Will repeat sodium in the AM. He is requiring IV ativan about twice a day, seroquel at HS, and also he is on librium taper currently 25 mg PO TID. Blood pressure 147/85, heart rate 68, afebrile, 96% room air. Sitter no longer at bedside. Patient does not currently have accepting facility to ECF. Follow up on Monday when case management returns. 05/08/2022 Patient continues on IV ativan for acute alcohol withdrawal delirum tremens. He is also on librium, seroquel. No sitter at bedside. No acute event overnight. Mentation is improving. Sodium has improved to 135, potassium 3.6, magnesium 2.0. Continues on normal saline. Blood pressure 148/86. Increase activity level, encourage diet. Pending subacute rehab, having issues finding accepting facility. 05/09/2022 Patient today is doing well he is alert x 2-3. No acute events overnight, has not had sitter at the bedside. Tremors have resolved. He has not required IV ativan overnight. He does report increasing diet and has been eating and drinking well. He is afebrile, heart rate 75, blood pressure 106/72, 93% room air. Family is wanting evaluation for short term memory loss speech therapy has been consulted. Discussed clinical course and plan of care with family over the phone. There is no power of medical planner in place. Patient will need subacute rehab, daughter would like permanent placement. Requesting to speak with case management tomorrow regarding discharge planning. 05/10/2022 Patient is seen and evaluated in follow-up and undergoing speech therapy evaluation for cognition with family at the bedside. Patient continues on Librium taper and not requiring ativan per nursing. Case management following and continuing to work on an accepting ecf. PT working with the patient today for updated notes as patient continues with weakness. Patient is afebrile and denies chest pain or shortness of breath. No reports of nausea or vomiting and tolerating diet. Will follow up with case management. 05/11/2022 Patient is seen and evaluated in follow-up this morning in case management following [facility] has accepted the patient and currently awaiting insurance authorization which was submitted today. Possible discharge in 24 hours. Patient is continued on Librium taper and as needed CIWA protocol although has not been requiring any Ativan. Patient continues on gentle IV hydration and will continue. Encouraged oral intake and increased activity as tolerated. Patient denies chest pain or shortness of breath. Patient is afebrile. Patient denies nausea or vomiting and has been tolerating dysphagia diet. Review of systems: Constitutional: No reports of fatigue, fever, or chills Cardiovascular: No reports of chest pain or palpitations Respiratory: No reports of shortness of breath or cough GI: No reports of nausea, vomiting, or diarrhea : No reports of dysuria or retention Neurovascular: reports of weakness All medications have been reviewed PHYSICAL EXAMINATION: GENERAL: The patient is alert and oriented x1-2, with intermittent periods of confusion, thin built, elderly appearing male HEENT: Pupils are round and equally reacting to light. EOMI. no scleral icterus. No conjunctival pallor. Normocephalic, atraumatic. No pharyngeal erythema. No thyromegaly. CARDIOVASCULAR: S1 and S2 muffled PULMONARY: diminished breath sounds bilaterally with no wheezing or rhonchi not ed. ABDOMEN: soft. Nontender on exam. non-distended, normoactive bowel sounds. No palpable organomegaly. MUSCULOSKELETAL: No joint swelling or deformity. EXTREMITIES: No cyanosis, clubbing, or pedal edema. NEUROLOGICAL: Gross neurological examination did not reveal any focal deficits. Diffuse weakness SKIN: No rashes. Assessment: Acute alcohol withdrawal and early delirium tremens, resolved Continued ongoing nicotine dependence Thrombocytopenia most likely from chronic alcohol use, improving Acute rhabdomyolysis possibly due to alcohol Hyponatremia, hypovolemic from poor oral intake improved with IV fluids History of anxiety/depression Gait dysfunction GI prophylaxis DVT prophylaxis Full code Plan: Continue IV fluids Continue librium and seroquel CIWA protocol, patient has not required Ativan in days and will discontinue consider titrating the Librium dose and weaning in the a.m. Monitor for acute alcohol withdrawal seizure Replace electrolytes as needed Check B12 and Folate Speech therapy at the bedside with family for cognitive testing. Pending ECF placement and discharge planning, has been accepted by [facility] and currently awaiting insurance authorization Possible discharge in 24 hours The impression and plan of care has been dictated by Leticia Hardy, nurse practitioner as directed. Dr. Bailey MD I have performed a history and examination and MDM of this patient, discussed the same with the dictator, and agree with the dictator's assessment and plan as written ,documented as a scribe. Based on total visit time, I have performed more than 50% of the visit. Any additional findings or plans will be noted. Objective - Vital Signs Vital signs: Vital Signs Temp 98 F 05/11/22 11:22 Pulse 88 05/11/22 11:22 Resp 20 05/11/22 11:22 BP 130/78 05/11/22 11:22 Pulse Ox 97 05/11/22 11:22 FiO2 Intake & Output 05/10/22 05/11/22 05/11/22 18:59 06:59 18:59 Other: Voiding Method Toilet Toilet Toilet Urinal Urinal Urinal Diaper Diaper Diaper Incontinent Incontinent Incontinent # Voids 2 2 - Labs CBC & Chem 7: 05/08/22 05:45 05/08/22 05:45
[2022-05-11] MEDS: SODIUM CHLORIDE 0.9% 1,000 ML IV SCH (18:51)
[2022-05-11] MEDS: QUEtiapine 25 MG TAB PO SCH (21:45)
[2022-05-12] MEDS: LORazepam 1 MG TAB PO PRN (03:49)
[2022-05-12] MEDS: SODIUM CHLORIDE 0.9% 1,000 ML IV SCH ×3 (04:45→21:55)
[2022-05-12] MEDS: LOSARTAN 25 MG TAB PO SCH (08:04)
[2022-05-12] MEDS: MULTIVITAMINS, THERA 1 EACH TAB PO SCH (08:04)
[2022-05-12] MEDS: THIAMINE 100 MG TAB PO SCH ×2 (08:04→15:53)
[2022-05-12] MEDS: FOLIC ACID 1 MG TAB PO SCH (08:04)
[2022-05-12] MEDS: HEPARIN SODIUM,PORCINE/PF 5,000 UNIT/0.5 ML SYRINGE SQ SCH ×2 (08:04→21:55)
[2022-05-12] MEDS: PANTOPRAZOLE 40 MG TABLET PO SCH (08:04)
[2022-05-12] MEDS: chlordiazePOXIDE 25 MG CAP PO SCH ×3 (08:04→21:53)
[2022-05-12] MEDS ORDERED: ACETAMINOPHEN TAB 500 MG TAB PO STA (15:14)
--- NOTE | 2022-05-12 15:37 | XR ---
EXAMINATION TYPE: XR chest 1V portable DATE OF EXAM: 05/12/2022 CLINICAL HISTORY: Fever and lethargy. TECHNIQUE: Single AP portable upright view of the chest is obtained. COMPARISON: Chest x-ray from May 04, 2022 FINDINGS: Diminished inspiration with new left greater than right bibasilar opacities. Cardiac silho uette size more prominent on current exam. Multilevel spurring in thoracic spine redemonstrated IMPRESSION: Diminished inspiration with left greater than right bibasilar acute infiltrate and/or at electasis seen. Progress study advised.
[2022-05-12 16:34] LABS: Basophils % (A) 1 %; Eosinophils % (A) 1 %; HCT 41.5 % (39.0-53.0); HGB 13.6 gm/dL (13.0-17.5); Lymphocytes # (A) 0.5 k/uL (1.0-4.8); Lymphocytes % (A) 9 %; MCHC 32.7 g/dL (31.0-37.0); MCV 100.7 fL (80.0-100.0); Mean Platelet Volume 9.4; Monocytes # (A) 0.7 k/uL (0-1.0); Monocytes % (A) 13 %; Neutrophils % (A) 74 %; RBC 4.12 m/uL (4.30-5.90); RDW 13.8 % (11.5-15.5); WBC 5.4 k/uL (3.8-10.6)
[2022-05-12 16:38] LABS: African American GFR (CKD) >90 (>60 ml/min/1.73 sqM); Anion Gap 13 mmol/L; Blood Urea Nitrogen 14 mg/dL (9-20); Calcium 8.9 mg/dL (8.4-10.2); Carbon Dioxide 24 mmol/L (22-30); Chloride 96 mmol/L (98-107); Glucose 107 mg/dL (74-99); Non-African American GFR(CKD) >90 (>60 ml/min/1.73 sqM); Potassium 3.5 mmol/L (3.5-5.1); Sodium 133 mmol/L (137-145)
[2022-05-12 16:51] LABS: Platelet Count 161 k/uL (150-450)
[2022-05-12 16:53] LABS: Appearance,Urine Cloudy (Clear); Bacteria,Urine Many /hpf; Bilirubin,Urine Negative (Negative); Blood,Urine Negative (Negative); Budding Yeast,Urine Occasional /hpf; Color,Urine Yellow; Glucose,Urine (UA) Negative (Negative); Hyaline Casts,Urine 5 /lpf (0-2); Ketones,Urine Negative (Negative); Leukocyte Esterase,Urine Negative (Negative); Mucus,Urine Rare /hpf; Nitrite,Urine Negative (Negative); Protein,Urine Trace (Negative); RBC,Urine 2 /hpf (0-5); Specific Gravity,Urine 1.017 (1.001-1.035); Squamous Epithelial Cell,Urine 1 /hpf (0-4); Urobilinogen,Urine >12.0 mg/dL (<2.0); WBC,Urine 4 /hpf (0-5)
[2022-05-12] MEDS ORDERED: SODIUM CHLORIDE 0.9% 500 ML 500 ML IV ONE (19:53)
[2022-05-12] MEDS: QUEtiapine 25 MG TAB PO SCH (21:53)
--- NOTE | 2022-05-12 23:27 | P.PN ---
Subjective Progress Note Date: 05/12/22 This is a 66-year-old male who was recently admitted with a past medical history of significant alcohol use and admitted with alcohol withdrawal and is being closely monitored. Patient also with features of rhabdomyolysis and is maintained on IV hydration. Patient continues on CIWA protocol and also con tinues with significant weakness. Case management following as physical therapy recommending ECF and patient along with family are agreeable. Patient is currently afebrile denies chest pain or shortness of breath. Patient's blood pressure mildly elevated recommend monitoring closely and will repeat labs. Patient denies nausea or vomiting and is tolerating oral intake. 05/06/2022 Patient is seen and evaluated in follow-up this morning continues to be confused and redirects easily maintained on CIWA protocol. Patient also continues on IV hydration and creatinine kinase is improved from 1401 on admission down to 802. Patient continues to require IV Ativan and will add oral Ativan and also Librium taper. Will add Seroquel at night as patient continues to have confusion needing redirection. Currently a sitter at the bedside for safety. Patient is afebrile and denies chest pain or shortness of breath. Patient is tolerating diet although has no teeth and has been changed to dysphagia ground diet. Potassium was 3.4 today and will replace and recommend repeat labs. Magnesium was 1.9 today. Liver functions are trending down. Case management is following as patient continues with weakness and recommend physical therapy evaluation daily and plan is for ECF. 05/07/2022 Patient is evaluated today resting in bed. He does have tremors noted with arms extended. Less confused today. He is able to hold a conversation. Labs today showing a sodium level of 134, potassium level 3.6, BUN 10, creatinine 0.48. Total bilirubini 2.0, liver enzymes stable. He continues on normal saline at 75 mls per hour. Will repeat sodium in the AM. He is requiring IV ativan about twice a day, seroquel at HS, and also he is on librium taper currently 25 mg PO TID. Blood pressure 147/85, heart rate 68, afebrile, 96% room air. Sitter no longer at bedside. Patient does not currently have accepting facility to ECF. Follow up on Monday when case management returns. 05/08/2022 Patient continues on IV ativan for acute alcohol withdrawal delirum tremens. He is also on librium, seroquel. No sitter at bedside. No acute event overnight. Mentation is improving. Sodium has improved to 135, potassium 3.6, magnesium 2.0. Continues on normal saline. Blood pressure 148/86. Increase activity level, encourage diet. Pending subacute rehab, having issues finding accepting facility. 05/09/2022 Patient today is doing well he is alert x 2-3. No acute events overnight, has not had sitter at the bedside. Tremors have resolved. He has not required IV ativan overnight. He does report increasing diet and has been eating and drinking well. He is afebrile, heart rate 75, blood pressure 106/72, 93% room air. Family is wanting evaluation for short term memory loss speech therapy has been consulted. Discussed clinical course and plan of care with family over the phone. There is no power of criminal attorney in place. Patient will need subacute rehab, daughter would like permanent placement. Requesting to speak with case management tomorrow regarding discharge planning. 05/10/2022 Patient is seen and evaluated in follow-up and undergoing speech therapy evaluation for cognition with family at the bedside. Patient continues on Librium taper and not requiring ativan per nursing. Case management following and continuing to work on an accepting ecf. PT working with the patient today for updated notes as patient continues with weakness. Patient is afebrile and denies chest pain or shortness of breath. No reports of nausea or vomiting and tolerating diet. Will follow up with case management. 05/11/2022 Patient is seen and evaluated in follow-up this morning in case management following [facility] has accepted the patient and currently awaiting insurance authorization which was submitted today. Possible discharge in 24 hours. Patient is continued on Librium taper and as needed CIWA protocol although has not been requiring any Ativan. Patient continues on gentle IV hydration and will continue. Encouraged oral intake and increased activity as tolerated. Patient denies chest pain or shortness of breath. Patient is afebrile. Patient denies nausea or vomiting and has been tolerating dysphagia diet. 05/12/2022 Patient is seen this morning with family at the bedside reports that he is more lethargic today and difficult to arouse. Patient is lethargic although arousable on exam. Answering questions appropriately but is more fatigued. No reports of overnight issues, but RN this morning reports a dose of ativan was given around 3am this morning. Will decrease and taper the librium. Patient now having fevers and lower blood pressure. Recommend IV fluids and will get a chest xray, ua with reflex to culture, blood culture, tylenol for fever, and further labs. Will order covid and influenza testing as well. Check procalcitonin. Review of systems: Constitutional: No reports of fatigue, fever, or chills Cardiovascular: No reports of chest pain or palpitations Respiratory: No reports of shortness of breath or cough GI: No reports of nausea, vomiting, or diarrhea : No reports of dysuria or retention Neurovascular: reports of weakness All medications have been reviewed PHYSICAL EXAMINATION: GENERAL: The patient is alert and oriented x1-2, with intermittent periods of co nfusion, thin built, elderly appearing male, more lethargic today HEENT: Pupils are round and equally reacting to light. EOMI. no scleral icterus. No conjunctival pallor. Normocephalic, atraumatic. No pharyngeal erythema. No thyromegaly. CARDIOVASCULAR: S1 and S2 muffled PULMONARY: diminished breath sounds bilaterally with no wheezing or rhonchi noted. ABDOMEN: soft. Nontender on exam. non-distended, normoactive bowel sounds. No palpable organomegaly. MUSCULOSKELETAL: No joint swelling or deformity. EXTREMITIES: No cyanosis, clubbing, or pedal edema. NEUROLOGICAL: Gross neurological examination did not reveal any focal deficits. Diffuse weakness SKIN: No rashes. Assessment: Acute alcohol withdrawal and early delirium tremens, resolved fevers, unknown etiology, work-up in progress Continued ongoing nicotine dependence Thrombocytopenia most likely from chronic alcohol use, improving Acute rhabdomyolysis possibly due to alcohol Hyponatremia, hypovolemic from poor oral intake improved with IV fluids History of anxiety/depression Gait dysfunction GI prophylaxis DVT prophylaxis Full code Plan: Continue IV fluids Await chest xray, labs, urinalysis, blood culture, and start rocephin. monitor for further fevers. Continue librium and seroquel, will decrease dose of librium and taper CIWA protocol, patient has not required Ativan in days although a dose was given last night and patient is more lethargic today Monitor for acute alcohol withdrawal seizure Replace electrolytes as needed Check B12 and Folate Pending ECF placement and discharge planning, has been accepted by [facility] and currently awaiting insurance authorization Possible discharge in 24 hours The impression and plan of care has been dictated by Leticia Hardy, nurse practitioner as directed. Dr. Bailey MD I have performed a history and examination and MDM of this patient, discussed the same with the dictator, and agree with the dictator's assessment and plan as written ,documented as a scribe. Based on total visit time, I have performed more than 50% of the visit. Any additional findings or plans will be noted. Objective - Vital Signs Vital signs: Vital Signs Temp 99.9 F H 05/12/22 05:00 Pulse 136 H 05/12/22 05:00 Resp 16 05/12/22 05:00 BP 114/79 05/12/22 05:00 Pulse Ox 91 L 05/12/22 05:00 FiO2 Intake & Output 05/11/22 05/12/22 05/12/22 18:59 06:59 18:59 Intake Total 900 Balance 900 Intake: IV 900 Sodium Chloride 0.9% 1, 900 000 ml @ 75 mls/hr IV . [id number] [facility] Rx#:[id number] Other: Voiding Method Toilet Toilet Toilet Urinal Urinal Urinal Diaper Diaper Diaper Incontinent Incontinent Incontinent # Voids 2 - Labs CBC & Chem 7: 05/12/22 15:37 05/12/22 15:37
[2022-05-13] MEDS: ACETAMINOPHEN TAB 325 MG TAB PO PRN ×2 (04:38→18:38)
[2022-05-13] MEDS: HEPARIN SODIUM,PORCINE/PF 5,000 UNIT/0.5 ML SYRINGE SQ SCH ×2 (08:07→20:32)
[2022-05-13] MEDS: PANTOPRAZOLE 40 MG TABLET PO SCH (08:08)
[2022-05-13] MEDS: chlordiazePOXIDE 25 MG CAP PO SCH ×3 (08:08→20:32)
[2022-05-13] MEDS: THIAMINE 100 MG TAB PO SCH ×2 (08:08→16:30)
[2022-05-13] MEDS: SODIUM CHLORIDE 0.9% 1,000 ML IV SCH ×2 (10:09→20:32)
[2022-05-13] MEDS: FOLIC ACID 1 MG TAB PO SCH (12:51)
[2022-05-13] MEDS: MULTIVITAMINS, THERA 1 EACH TAB PO SCH (12:51)
[2022-05-13] MEDS ORDERED: IPRATROPIUM-ALBUTEROL 3 ML NEB INHALATION PRN (15:15)
--- NOTE | 2022-05-13 20:19 | P.PN ---
Subjective Progress Note Date: 05/13/22 This is a 66-year-old male who was recently admitted with a past medical history of significant alcohol use and admitted with alcohol withdrawal and is being closely monitored. Patient also with features of rhabdomyolysis and is maintained on IV hydration. Patient continues on CIWA protocol and also con tinues with significant weakness. Case management following as physical therapy recommending ECF and patient along with family are agreeable. Patient is currently afebrile denies chest pain or shortness of breath. Patient's blood pressure mildly elevated recommend monitoring closely and will repeat labs. Patient denies nausea or vomiting and is tolerating oral intake. 05/06/2022 Patient is seen and evaluated in follow-up this morning continues to be confused and redirects easily maintained on CIWA protocol. Patient also continues on IV hydration and creatinine kinase is improved from 1401 on admission down to 802. Patient continues to require IV Ativan and will add oral Ativan and also Librium taper. Will add Seroquel at night as patient continues to have confusion needing redirection. Currently a sitter at the bedside for safety. Patient is afebrile and denies chest pain or shortness of breath. Patient is tolerating diet although has no teeth and has been changed to dysphagia ground diet. Potassium was 3.4 today and will replace and recommend repeat labs. Magnesium was 1.9 today. Liver functions are trending down. Case management is following as patient continues with weakness and recommend physical therapy evaluation daily and plan is for ECF. 05/07/2022 Patient is evaluated today resting in bed. He does have tremors noted with arms extended. Less confused today. He is able to hold a conversation. Labs today showing a sodium level of 134, potassium level 3.6, BUN 10, creatinine 0.48. Total bilirubini 2.0, liver enzymes stable. He continues on normal saline at 75 mls per hour. Will repeat sodium in the AM. He is requiring IV ativan about twice a day, seroquel at HS, and also he is on librium taper currently 25 mg PO TID. Blood pressure 147/85, heart rate 68, afebrile, 96% room air. Sitter no longer at bedside. Patient does not currently have accepting facility to ECF. Follow up on Monday when case management returns. 05/08/2022 Patient continues on IV ativan for acute alcohol withdrawal delirum tremens. He is also on librium, seroquel. No sitter at bedside. No acute event overnight. Mentation is improving. Sodium has improved to 135, potassium 3.6, magnesium 2.0. Continues on normal saline. Blood pressure 148/86. Increase activity level, encourage diet. Pending subacute rehab, having issues finding accepting facility. 05/09/2022 Patient today is doing well he is alert x 2-3. No acute events overnight, has not had sitter at the bedside. Tremors have resolved. He has not required IV ativan overnight. He does report increasing diet and has been eating and drinking well. He is afebrile, heart rate 75, blood pressure 106/72, 93% room air. Family is wanting evaluation for short term memory loss speech therapy has been consulted. Discussed clinical course and plan of care with family over the phone. There is no power of civil rights attorney in place. Patient will need subacute rehab, daughter would like permanent placement. Requesting to speak with case management tomorrow regarding discharge planning. 05/10/2022 Patient is seen and evaluated in follow-up and undergoing speech therapy evaluation for cognition with family at the bedside. Patient continues on Librium taper and not requiring ativan per nursing. Case management following and continuing to work on an accepting ecf. PT working with the patient today for updated notes as patient continues with weakness. Patient is afebrile and denies chest pain or shortness of breath. No reports of nausea or vomiting and tolerating diet. Will follow up with case management. 05/11/2022 Patient is seen and evaluated in follow-up this morning in case management following [facility] has accepted the patient and currently awaiting insurance authorization which was submitted today. Possible discharge in 24 hours. Patient is continued on Librium taper and as needed CIWA protocol although has not been requiring any Ativan. Patient continues on gentle IV hydration and will continue. Encouraged oral intake and increased activity as tolerated. Patient denies chest pain or shortness of breath. Patient is afebrile. Patient denies nausea or vomiting and has been tolerating dysphagia diet. 05/12/2022 Patient is seen this morning with family at the bedside reports that he is more lethargic today and difficult to arouse. Patient is lethargic although arousable on exam. Answering questions appropriately but is more fatigued. No reports of overnight issues, but RN this morning reports a dose of ativan was given around 3am this morning. Will decrease and taper the librium. Patient now having fevers and lower blood pressure. Recommend IV fluids and will get a chest xray, ua with reflex to culture, blood culture, tylenol for fever, and further labs. Will order covid and influenza testing as well. Check procalcitonin. 05/13/2022 Patient is seen today and has been started on IV rocephin and reported to have positive blood cultures and are growing kleb oxytoca. Recommend repeat blood cultures. Will consult ID and appreciate input and recommendations as there is a clinical suspicion for hospital acquired pneumonia. Will decrease the IV fluid rate and follow up with repeat labs. Will also add duoneb treatments and encouraged incentive spirometer use at least 10 times per hour while awake. Sputum culture ordered as well. Patient with low grade temps. Patient denies chest pain or shortness of breath. Patient does report some cough. Not eating as much but reports he did eat some breakfast which is improved from yesterday. Review of systems: Constitutional: reports of fatigue, fever, or chills Cardiovascular: No reports of chest pain or palpitations Respiratory: No reports of shortness of breath, reports cough GI: No reports of nausea, vomiting, or diarrhea : No reports of dysuria or retention Neurovascular: reports of weakness All medications have been reviewed PHYSICAL EXAMINATION: GENERAL: The patient is alert and oriented x1-2, with intermittent periods of confusion, thin built, elderly appearing male, more lethargic today HEENT: Pupils are round and equally reacting to light. EOMI. no scleral icterus. No conjunctival pallor. Normocephalic, atraumatic. No pharyngeal erythema. No thyromegaly. CARDIOVASCULAR: S1 and S2 muffled PULMONARY: diminished breath sounds bilaterally with some scattered rhonchi noted. ABDOMEN: soft. Nontender on exam. non-distended, normoactive bowel sounds. No palpable organomegaly. MUSCULOSKELETAL: No joint swelling or deformity. EXTREMITIES: No cyanosis, clubbing, or pedal edema. NEUROLOGICAL: Gross neurological examination did not reveal any focal deficits. Diffuse weakness SKIN: No rashes. Assessment: Acute alcohol withdrawal and early delirium tremens, resolved fevers, unknown etiology, work-up in progress possible hospital acquired pneumonia with blood cultures growing klebsiella oxytoca Continued ongoing nicotine dependence Thrombocytopenia most likely from chronic alcohol use, improving Acute rhabdomyolysis possibly due to alcohol Hyponatremia, hypovolemic from poor oral intake improved with IV fluids History of anxiety/depression Gait dysfunction GI prophylaxis DVT prophylaxis Full code Plan: Continue IV fluids although decrease to 50ml per hour chest xray showing left greater than right infiltrate with atelectasis, blood culture positive and growing klebsiella oxytoca, and have started rocephin and will repeat blood cultures. Urine negative and will also add sputum culture, duonebs and consult ID and appreciate input and recommendations. Suspicion for hospital acquired pneumonia. Procalcitonin is elevated at .6 . monitor for further fevers. Encouraged incentive spirometer use and needs constant encouragement Continue librium and seroquel, will decrease dose of librium and taper CIWA protocol, patient has not required Ativan in days although a dose was given last night and patient is more lethargic today Monitor for acute alcohol withdrawal seizure Replace electrolytes as needed Encourage increased activity as tolerated. The impression and plan of care has been dictated by Leticia Hardy, nurse practitioner as directed. Dr. Bailey MD I have performed a history and examination and MDM of this patient, discussed the same with the dictator, and agree with the dictator's assessment and plan as written ,documented as a scribe. Based on total visit time, I have performed more than 50% of the visit. Any additional findings or plans will be noted. Objective - Vital Signs Vital signs: Vital Signs Temp 99.6 F 05/13/22 05:43 Pulse 95 05/13/22 04:33 Resp 16 05/13/22 04:33 BP 148/77 05/13/22 04:33 Pulse Ox 92 L 05/13/22 04:33 FiO2 Intake & Output 05/12/22 05/13/22 05/13/22 18:59 06:59 18:59 Intake Total 0 Balance 0 Intake: IV 0 Sodium Chloride 0.9% 1, 0 000 ml @ 75 mls/hr IV . [id number] [facility] Rx#:[id number] Other: Voiding Method Toilet Toilet Urinal Urinal Diaper Diaper Incontinent Incontinent # Voids 4 1 - Labs CBC & Chem 7: 05/12/22 15:37 05/12/22 15:37 Labs: Abnormal Lab Results - Last 24 Hours (Table) 05/12/22 05/12/22 05/12/22 Range/Units 15:37 15:37 15:37 RBC 4.12 L (4.30-5.90) m/uL MCV 100.7 H (80.0-100.0) fL Lymphocytes # 0.5 L (1.0-4.8) k/uL Sodium 133 L (137-145) mmol/L Chloride 96 L (98-107) mmol/L Glucose 107 H (74-99) mg/dL Procalcitonin 0.62 H (0.02-0.09) ng/mL Urine Protein (Negative) Urine Bacteria (None) /hpf Hyaline Casts (0-2) /lpf Urine Mucus (None) /hpf Urine Yeast (Budding) (None) /hpf 05/12/22 Range/Units 16:29 RBC (4.30-5.90) m/uL MCV (80.0-100.0) fL Lymphocytes # (1.0-4.8) k/uL Sodium (137-145) mmol/L Chloride (98-107) mmol/L Glucose (74-99) mg/dL Procalcitonin (0.02-0.09) ng/mL Urine Protein Trace H (Negative) Urine Bacteria Many H (None) /hpf Hyaline Casts 5 H (0-2) /lpf Urine Mucus Rare H (None) /hpf Urine Yeast (Budding) Occasional H (None) /hpf Microbiology - Last 24 Hours (Table) 05/12/22 15:27 Blood Culture Gram Stain - Preliminary Blood 05/12/22 15:37 Blood Culture - Final Blood
[2022-05-13] MEDS: QUEtiapine 25 MG TAB PO SCH (20:32)
[2022-05-13] MEDS: IPRATROPIUM-ALBUTEROL 3 ML NEB INHALATION SCH (21:39)
--- NOTE | 2022-05-14 00:12 | P.CONS ---
History of Present Illness - Reason for Consult Consult date: 05/13/22 - History of Present Illness Patient is a 66-year-old male with a past medical history difficult for alcoholism presenting to the hospital about 9 days ago on 05/04/2022 for evaluation of mental status changes patient was found wandering around since last night the patient found to be confused and [place] of patient subsequently was brought into the ER he did have a CT of the brain that was negative for any bleed patient on presentation to the hospital was afebrile however he did spike a fever of 103 F yesterday afternoon patient did have a normal white count during this admission kidney function has been normal liver enzymes are mildly elevated did have a procalcitonin of 0.62 urine has been negative urine drug screen was negative COVID testing x2 negative influenza PCR was negative patient did have a chest x-ray diminished inspiration with left greater than right basilar acute infiltrate patient did have blood cultures drawn which can be positive with Klebsiella that has prompted this infectious disease consultation most information has been obtained from review the chart talking nursing staff as the patient was pleasantly confused and did not provide any history no vomiting or diarrhea has been reported Past Medical History Past Medical History: No Reported History Additional Past Medical History / Comment(s): Alcohol abuse, diverticular disease. History of Any Multi-Drug Resistant Organisms: None Reported Past Surgical History: Back Surgery, Bowel Resection, Hernia Repair Additional Past Surgical History / Comment(s): Exploratory laparotomy d/t necrotic small bowel, colonoscopy, low back surgery, umbilical hernia repair as an . Past Anesthesia/Blood Transfusion Reactions: No Reported Reaction Smoking Status: Current every day smoker - Past Family History Mother Family Medical History: No Reported History Father Family Medical History: Congestive Heart Failure (CHF), CVA/TIA Medications and Allergies Home Medications Medication Instructions Recorded Confirmed Type No Known Home Medications 04/05/21 05/04/22 History Allergies Allergy/AdvReac Type Severity Reaction Status Date / Time No Known Allergies Allergy Verified 05/04/22 10:20 Physical Exam Vitals: Vital Signs Temp Pulse Resp BP BP Pulse Ox 05/13/22 12:50 98.8 F 90 19 133/76 92 L 05/13/22 05:43 99.6 F 05/13/22 04:33 102.9 F H 95 16 148/77 92 L 05/12/22 20:09 98.5 F 77 16 71/50 92 L 05/12/22 18:00 98.3 F 05/12/22 15:20 102 F H Intake and Output 05/12/22 05/13/22 05/13/22 22:59 06:59 14:59 Intake Total 0 Balance 0 Intake: IV 0 Sodium Chloride 0.9% 1, 0 000 ml @ 75 mls/hr IV . [id number] [facility] Rx#:[id number] Other: Voiding Method Toilet Toilet Urinal Urinal Diaper Diaper Incontinent Incontinent # Voids 4 1 3 Results CBC & Chem 7: 05/12/22 15:37 05/12/22 15:37 Labs: Abnormal Lab Results - Last 24 Hours (Table) 05/12/22 05/12/22 05/12/22 Range/Units 15:37 15:37 15:37 RBC 4.12 L (4.30-5.90) m/uL MCV 100.7 H (80.0-100.0) fL Lymphocytes # 0.5 L (1.0-4.8) k/uL Sodium 133 L (137-145) mmol/L Chloride 96 L (98-107) mmol/L Glucose 107 H (74-99) mg/dL Procalcitonin 0.62 H (0.02-0.09) ng/mL Urine Protein (Negative) Urine Bacteria (None) /hpf Hyaline Casts (0-2) /lpf Urine Mucus (None) /hpf Urine Yeast (Budding) (None) /hpf 05/12/22 Range/Units 16:29 RBC (4.30-5.90) m/uL MCV (80.0-100.0) fL Lymphocytes # (1.0-4.8) k/uL Sodium (137-145) mmol/L Chloride (98-107) mmol/L Glucose (74-99) mg/dL Procalcitonin (0.02-0.09) ng/mL Urine Protein Trace H (Negative) Urine Bacteria Many H (None) /hpf Hyaline Casts 5 H (0-2) /lpf Urine Mucus Rare H (None) /hpf Urine Yeast (Budding) Occasional H (None) /hpf Microbiology - Last 24 Hours (Table) 05/12/22 15:27 Blood Culture Gram Stain - Preliminary Blood Blood Culture - Preliminary Klebsiella oxytoca 05/12/22 15:37 Blood Culture - Final Blood Assessment and Plan Plan: 1patient with a Klebsiella bacteremia could be related to the left lower lobe pneumonia this patient has been in the hospital for the last 9 days and treated for possible DTs, patient did have a negative UA abdominal soft clinical examination and no evidence of any joint swelling or cellulitis however the patient did have a elevated liver enzymes and will need to rule out intra- abdominal source 2-blood cultures will be repeated document clearance of bacteremia 3-obtain ultrasound of the liver the gallbladder area 4-continue with Rocephin 2 g daily We will follow on clinical condition and cultures to further adjust medication if needed Thank you for this consultation will follow this patient along with you Time with Patient: Greater than 30
[2022-05-14] MEDS: IPRATROPIUM-ALBUTEROL 3 ML NEB INHALATION SCH ×3 (07:39→19:23)
[2022-05-14 08:57] LABS: African American GFR (CKD) 115.6 (60.0-200.0); Albumin 3.8 g/dL (3.8-4.9); Albumin/Globulin Ratio 1.36 (1.60-3.17); Anion Gap 13.4 mmol/L (10.00-18.00); BUN/Creat Ratio 13.14 Ratio (12.00-20.00); Blood Urea Nitrogen 9.2 mg/dL (9.0-27.0); Calcium 9.2 mg/dL (8.7-10.3); Carbon Dioxide 22.6 mmol/L (20.0-27.5); Globulin 2.8 g/dL (1.6-3.3); Non-African American GFR(CKD) 99.7 (60.0-200.0); Potassium 4.3 mmol/L (3.5-5.5); Total Protein 6.6 g/dL (6.2-8.2)
[2022-05-14 09:07] LABS: Hepatitis A Antibody IgM Nonreactive (Nonreactive); Hepatitis B Core IgM Nonreactive (Nonreactive); Hepatitis B Surface Antigen Nonreactive (Nonreactive); Hepatitis C IgG Antibody Nonreactive (Nonreactive)
--- NOTE | 2022-05-14 09:18 | US ---
EXAMINATION TYPE: US abdomen complete DATE OF EXAM: 05/14/2022 COMPARISON: NONE CLINICAL HISTORY: Bacteremia , Elevated LFT. TECHNIQUE: Multiple sonographic images of the abdomen are obtained. FINDINGS: EXAM MEASUREMENTS: Liver Length: 16.5 cm Gallbladder Wall: 0.3 cm CBD: 0.4 cm Spleen: 13.0 cm Right Kidney: 12.2 x 7.2 x 5.4 cm Left Kidney: 11.7 x 5.9 x 5.9 cm [employer]ER NOTES: Technically difficult study performed portably on patient unable to cooperate for test. Pancreas: Obscured by bowel gas Liver: only imaged intercostally, unable to see in its entirety increased coarse in echotexture. Gallbladder: No stones seen Evidence for sonographic Flores's sign: No CBD: wnl Spleen: wnl Right Kidney: No hydronephrosis or masses seen Left Kidney: No hydronephrosis or masses seen Upper IVC: wnl Abd Aorta: Obscured by overlying bowel gas IMPRESSION: Hepatocellular disease commonly relating to hepatic steatosis.
[2022-05-14] MEDS: chlordiazePOXIDE 25 MG CAP PO SCH ×3 (11:14→20:42)
[2022-05-14] MEDS: MULTIVITAMINS, THERA 1 EACH TAB PO SCH (11:14)
[2022-05-14] MEDS: HEPARIN SODIUM,PORCINE/PF 5,000 UNIT/0.5 ML SYRINGE SQ SCH ×2 (11:14→20:41)
[2022-05-14] MEDS: THIAMINE 100 MG TAB PO SCH ×2 (11:14→15:58)
[2022-05-14] MEDS: PANTOPRAZOLE 40 MG TABLET PO SCH (11:14)
[2022-05-14] MEDS: FOLIC ACID 1 MG TAB PO SCH (11:15)
[2022-05-14] MEDS: SODIUM CHLORIDE 0.9% 1,000 ML IV SCH (20:41)
[2022-05-14] MEDS: QUEtiapine 25 MG TAB PO SCH (20:42)
--- NOTE | 2022-05-15 00:48 | P.PN ---
Subjective Progress Note Date: 05/14/22 Principal diagnosis: Klebsiella bacteremia Patient is a 66-year-old male with a past medical history significant for alcoholism, presented to hospital for evaluation of mental status changes and the patient was being treated for possible DTs subsequently he did spike a fever and did have a positive blood culture with Klebsiella concern for possible pneumonia. On today's evaluation that is 05/14/2022, the patient is afebrile the patient is currently sleepy lethargic and did not provide any history and no vomiting no diarrhea or any other changes reported by the nursing staff Objective - Vital Signs Vital signs: Vital Signs Temp 98.5 F 05/14/22 13:08 Pulse 97 05/14/22 13:08 Resp 18 05/14/22 13:08 BP 113/69 05/14/22 13:08 Pulse Ox 90 L 05/14/22 13:08 FiO2 Intake & Output 05/13/22 05/14/22 05/14/22 18:59 06:59 18:59 Intake Total 50 118 Balance 50 118 Intake: Intake, IV Titration 50 Amount cefTRIAXone 2 gm In 50 Sodium Chloride 0.9% 50 ml @ 100 mls/hr IVPB Q24HR [facility] Rx#:[id number] Oral 118 Other: Voiding Method Toilet Toilet Toilet Urinal Urinal Urinal Diaper Diaper Diaper Incontinent Incontinent Incontinent # Voids 2 2 3 # Bowel Movements 1 - Exam GENERAL DESCRIPTION: Middle-age male lying in bed in no distress RESPIRATORY SYSTEM: Unlabored breathing , decreased breath sounds at bases HEART: S1 S2 regular rate and rhythm , ABDOMEN: Soft , no tenderness EXTREMITIES: No edema feet - Labs CBC & Chem 7: 05/12/22 15:37 05/14/22 05:38 Labs: Abnormal Lab Results - Last 24 Hours (Table) 05/14/22 Range/Units 05:38 AST 42 H (14-35) U/L Albumin/Globulin Ratio 1.36 L (1.60-3.17) g/dL Microbiology - Last 24 Hours (Table) 05/13/22 09:47 Blood Culture - Preliminary Blood No Growth after 24 hours 05/12/22 15:27 Blood Culture Gram Stain - Preliminary Blood Blood Culture - Preliminary Klebsiella oxytoca Assessment and Plan (1) Bacteremia Current Visit: Yes Status: Acute Code(s): R78.81 - BACTEREMIA SNOMED Code(s): 7841875 Plan: 1patient with a Klebsiella bacteremia could be related to the left lower lobe pneumonia this patient has been in the hospital for the last 9 days and treated for possible DTs, patient did have a negative UA abdominal soft clinical examination and no evidence of any joint swelling or cellulitis however the patient did have a elevated liver enzymes and will need to rule out intra- abdominal source 2-blood cultures has been repeated document clearance of bacteremia 3- ultrasound of the liver and gallbladder area, did not show any gallbladder abnormality possible hepatocellular disease 4-patient to continue with Rocephin 2 g daily Time with Patient: Less than 30
[2022-05-15] MEDS: IPRATROPIUM-ALBUTEROL 3 ML NEB INHALATION SCH ×3 (07:20→19:46)
[2022-05-15] MEDS: chlordiazePOXIDE 25 MG CAP PO SCH ×2 (08:24→17:29)
[2022-05-15] MEDS: MULTIVITAMINS, THERA 1 EACH TAB PO SCH (08:24)
[2022-05-15] MEDS: PANTOPRAZOLE 40 MG TABLET PO SCH (08:24)
[2022-05-15] MEDS: HEPARIN SODIUM,PORCINE/PF 5,000 UNIT/0.5 ML SYRINGE SQ SCH ×2 (08:24→21:25)
[2022-05-15] MEDS: FOLIC ACID 1 MG TAB PO SCH (08:24)
[2022-05-15] MEDS: THIAMINE 100 MG TAB PO SCH ×2 (08:24→17:29)
[2022-05-15] MEDS: ACETAMINOPHEN TAB 325 MG TAB PO PRN (12:07)
[2022-05-15] MEDS: SODIUM CHLORIDE 0.9% 1,000 ML IV SCH (17:29)
--- NOTE | 2022-05-15 19:47 | P.PN ---
Subjective Progress Note Date: 05/14/22 This is a 66-year-old male who was recently admitted with a past medical history of significant alcohol use and admitted with alcohol withdrawal and is being closely monitored. Patient also with features of rhabdomyolysis and is maintained on IV hydration. Patient continues on CIWA protocol and also con tinues with significant weakness. Case management following as physical therapy recommending ECF and patient along with family are agreeable. Patient is currently afebrile denies chest pain or shortness of breath. Patient's blood pressure mildly elevated recommend monitoring closely and will repeat labs. Patient denies nausea or vomiting and is tolerating oral intake. 05/06/2022 Patient is seen and evaluated in follow-up this morning continues to be confused and redirects easily maintained on CIWA protocol. Patient also continues on IV hydration and creatinine kinase is improved from 1401 on admission down to 802. Patient continues to require IV Ativan and will add oral Ativan and also Librium taper. Will add Seroquel at night as patient continues to have confusion needing redirection. Currently a sitter at the bedside for safety. Patient is afebrile and denies chest pain or shortness of breath. Patient is tolerating diet although has no teeth and has been changed to dysphagia ground diet. Potassium was 3.4 today and will replace and recommend repeat labs. Magnesium was 1.9 today. Liver functions are trending down. Case management is following as patient continues with weakness and recommend physical therapy evaluation daily and plan is for ECF. 05/07/2022 Patient is evaluated today resting in bed. He does have tremors noted with arms extended. Less confused today. He is able to hold a conversation. Labs today showing a sodium level of 134, potassium level 3.6, BUN 10, creatinine 0.48. Total bilirubini 2.0, liver enzymes stable. He continues on normal saline at 75 mls per hour. Will repeat sodium in the AM. He is requiring IV ativan about twice a day, seroquel at HS, and also he is on librium taper currently 25 mg PO TID. Blood pressure 147/85, heart rate 68, afebrile, 96% room air. Sitter no longer at bedside. Patient does not currently have accepting facility to ECF. Follow up on Monday when case management returns. 05/08/2022 Patient continues on IV ativan for acute alcohol withdrawal delirum tremens. He is also on librium, seroquel. No sitter at bedside. No acute event overnight. Mentation is improving. Sodium has improved to 135, potassium 3.6, magnesium 2.0. Continues on normal saline. Blood pressure 148/86. Increase activity level, encourage diet. Pending subacute rehab, having issues finding accepting facility. 05/09/2022 Patient today is doing well he is alert x 2-3. No acute events overnight, has not had sitter at the bedside. Tremors have resolved. He has not required IV ativan overnight. He does report increasing diet and has been eating and drinking well. He is afebrile, heart rate 75, blood pressure 106/72, 93% room air. Family is wanting evaluation for short term memory loss speech therapy has been consulted. Discussed clinical course and plan of care with family over the phone. There is no power of business attorney in place. Patient will need subacute rehab, daughter would like permanent placement. Requesting to speak with case management tomorrow regarding discharge planning. 05/10/2022 Patient is seen and evaluated in follow-up and undergoing speech therapy evaluation for cognition with family at the bedside. Patient continues on Librium taper and not requiring ativan per nursing. Case management following and continuing to work on an accepting ecf. PT working with the patient today for updated notes as patient continues with weakness. Patient is afebrile and denies chest pain or shortness of breath. No reports of nausea or vomiting and tolerating diet. Will follow up with case management. 05/11/2022 Patient is seen and evaluated in follow-up this morning in case management following [facility] has accepted the patient and currently awaiting insurance authorization which was submitted today. Possible discharge in 24 hours. Patient is continued on Librium taper and as needed CIWA protocol although has not been requiring any Ativan. Patient continues on gentle IV hydration and will continue. Encouraged oral intake and increased activity as tolerated. Patient denies chest pain or shortness of breath. Patient is afebrile. Patient denies nausea or vomiting and has been tolerating dysphagia diet. 05/12/2022 Patient is seen this morning with family at the bedside reports that he is more lethargic today and difficult to arouse. Patient is lethargic although arousable on exam. Answering questions appropriately but is more fatigued. No reports of overnight issues, but RN this morning reports a dose of ativan was given around 3am this morning. Will decrease and taper the librium. Patient now having fevers and lower blood pressure. Recommend IV fluids and will get a chest xray, ua with reflex to culture, blood culture, tylenol for fever, and further labs. Will order covid and influenza testing as well. Check procalcitonin. 05/13/2022 Patient is seen today and has been started on IV rocephin and reported to have positive blood cultures and are growing kleb oxytoca. Recommend repeat blood cultures. Will consult ID and appreciate input and recommendations as there is a clinical suspicion for hospital acquired pneumonia. Will decrease the IV fluid rate and follow up with repeat labs. Will also add duoneb treatments and encouraged incentive spirometer use at least 10 times per hour while awake. Sputum culture ordered as well. Patient with low grade temps. Patient denies chest pain or shortness of breath. Patient does report some cough. Not eating as much but reports he did eat some breakfast which is improved from yesterday. 05/14/2022 Patient is seen today and continues on IV ceftriaxone and cultures showing klebsiella oxytoca. ID following and ct abdomen ordered to assess for possible abdominal source of infection due to elevated LFTs. Patient started on duoneb treatments although has been refusing. Needs constant encouragement on IS use. Sputum culture was ordered and continues to not be collected. Patient denies chest pain or shortness of breath. Awaiting repeat blood cultures. Recommend repeat labs in the am and will continue to monitor closely. Review of systems: Constitutional: reports of fatigue, fever, or chills Cardiovascular: No reports of chest pain or palpitations Respiratory: No reports of shortness of breath, reports cough GI: No reports of nausea, vomiting, or diarrhea : No reports of dysuria or retention Neurovascular: reports of weakness All medications have been reviewed PHYSICAL EXAMINATION: GENERAL: The patient is alert and oriented x1-2, with intermittent periods of confusion, thin built, elderly appearing male, lethargic today HEENT: Pupils are round and equally reacting to light. EOMI. no scleral icterus. No conjunctival pallor. Normocephalic, atraumatic. No pharyngeal erythema. No thyromegaly. CARDIOVASCULAR: S1 and S2 muffled PULMONARY: diminished breath sounds bilaterally with some scattered rhonchi noted. ABDOMEN: soft. Nontender on exam. non-distended, normoactive bowel sounds. No palpable organomegaly. MUSCULOSKELETAL: No joint swelling or deformity. EXTREMITIES: No cyanosis, clubbing, or pedal edema. NEUROLOGICAL: Gross neurological examination did not reveal any focal deficits. Diffuse weakness SKIN: No rashes. Assessment: Acute alcohol withdrawal and early delirium tremens, resolved fevers, unknown etiology, work-up in progress possible hospital acquired pneumonia with blood cultures growing klebsiella oxytoca Continued ongoing nicotine dependence Thrombocytopenia most likely from chronic alcohol use, improving Acute rhabdomyolysis possibly due to alcohol Hyponatremia, hypovolemic from poor oral intake improved with IV fluids History of anxiety/depression Gait dysfunction GI prophylaxis DVT prophylaxis Full code Plan: Continue IV fluids although decrease to 50ml per hour chest xray showing left greater than right infiltrate with atelectasis, blood culture positive and growing klebsiella oxytoca, and have started rocephin and will repeat blood cultures. Urine negative and will also add sputum culture, duonebs and ID following. Suspicion for hospital acquired pneumonia. Procalcitonin is elevated at .6 . monitor for further fevers. Patient has been afebrile and abdominal ct ordered to assess for abdominal source of infection Encouraged incentive spirometer use and needs constant encouragement Continue librium and seroquel, will decrease dose of librium and taper Monitor for acute alcohol withdrawal seizure Replace electrolytes as needed Encourage increased activity as tolerated. The impression and plan of care has been dictated as a scribe by Leticia Hardy, nurse practitioner as directed. Dr. Bailey MD I have performed a history and examination and MDM of this patient, discussed the same with the dictator, and agree with the dictator's assessment and plan as written ,documented as a scribe. Based on total visit time, I have performed more than 50% of the visit. Any additional findings or plans will be noted. Objective - Vital Signs Vital signs: Vital Signs Temp 98.1 F 05/14/22 03:49 Pulse 79 05/14/22 08:20 Resp 18 05/14/22 08:20 BP 120/79 05/14/22 03:49 Pulse Ox 95 05/14/22 03:49 FiO2 Intake & Output 05/13/22 05/14/22 05/14/22 18:59 06:59 18:59 Intake Total 50 118 Balance 50 118 Intake: Intake, IV Titration 50 Amount cefTRIAXone 2 gm In 50 Sodium Chloride 0.9% 50 ml @ 100 mls/hr IVPB Q[facility]HR [facility] Rx#:[id number] Oral 118 Other: Voiding Method Toilet Toilet Toilet Urinal Urinal Urinal Diaper Diaper Diaper Incontinent Incontinent Incontinent # Voids 2 2 3 # Bowel Movements 1 - Labs CBC & Chem 7: 05/12/22 15:37 05/14/22 05:38 Labs: Abnormal Lab Results - Last 24 Hours (Table) 05/14/22 Range/Units 05:38 AST 42 H (14-35) U/L Albumin/Globulin Ratio 1.36 L (1.60-3.17) g/dL Microbiology - Last 24 Hours (Table) 05/13/22 09:47 Blood Culture - Preliminary Blood No Growth after 24 hours 05/12/22 15:27 Blood Culture Gram Stain - Preliminary Blood Blood Culture - Preliminary Klebsiella oxytoca
--- NOTE | 2022-05-15 19:52 | P.PN ---
Subjective Progress Note Date: 05/15/22 This is a 66-year-old male who was recently admitted with a past medical history of significant alcohol use and admitted with alcohol withdrawal and is being closely monitored. Patient also with features of rhabdomyolysis and is maintained on IV hydration. Patient continues on CIWA protocol and also con tinues with significant weakness. Case management following as physical therapy recommending ECF and patient along with family are agreeable. Patient is currently afebrile denies chest pain or shortness of breath. Patient's blood pressure mildly elevated recommend monitoring closely and will repeat labs. Patient denies nausea or vomiting and is tolerating oral intake. 05/06/2022 Patient is seen and evaluated in follow-up this morning continues to be confused and redirects easily maintained on CIWA protocol. Patient also continues on IV hydration and creatinine kinase is improved from 1401 on admission down to 802. Patient continues to require IV Ativan and will add oral Ativan and also Librium taper. Will add Seroquel at night as patient continues to have confusion needing redirection. Currently a sitter at the bedside for safety. Patient is afebrile and denies chest pain or shortness of breath. Patient is tolerating diet although has no teeth and has been changed to dysphagia ground diet. Potassium was 3.4 today and will replace and recommend repeat labs. Magnesium was 1.9 today. Liver functions are trending down. Case management is following as patient continues with weakness and recommend physical therapy evaluation daily and plan is for ECF. 05/07/2022 Patient is evaluated today resting in bed. He does have tremors noted with arms extended. Less confused today. He is able to hold a conversation. Labs today showing a sodium level of 134, potassium level 3.6, BUN 10, creatinine 0.48. Total bilirubini 2.0, liver enzymes stable. He continues on normal saline at 75 mls per hour. Will repeat sodium in the AM. He is requiring IV ativan about twice a day, seroquel at HS, and also he is on librium taper currently 25 mg PO TID. Blood pressure 147/85, heart rate 68, afebrile, 96% room air. Sitter no longer at bedside. Patient does not currently have accepting facility to ECF. Follow up on Monday when case management returns. 05/08/2022 Patient continues on IV ativan for acute alcohol withdrawal delirum tremens. He is also on librium, seroquel. No sitter at bedside. No acute event overnight. Mentation is improving. Sodium has improved to 135, potassium 3.6, magnesium 2.0. Continues on normal saline. Blood pressure 148/86. Increase activity level, encourage diet. Pending subacute rehab, having issues finding accepting facility. 05/09/2022 Patient today is doing well he is alert x 2-3. No acute events overnight, has not had sitter at the bedside. Tremors have resolved. He has not required IV ativan overnight. He does report increasing diet and has been eating and drinking well. He is afebrile, heart rate 75, blood pressure 106/72, 93% room air. Family is wanting evaluation for short term memory loss speech therapy has been consulted. Discussed clinical course and plan of care with family over the phone. There is no power of bingo checker in place. Patient will need subacute rehab, daughter would like permanent placement. Requesting to speak with case management tomorrow regarding discharge planning. 05/10/2022 Patient is seen and evaluated in follow-up and undergoing speech therapy evaluation for cognition with family at the bedside. Patient continues on Librium taper and not requiring ativan per nursing. Case management following and continuing to work on an accepting ecf. PT working with the patient today for updated notes as patient continues with weakness. Patient is afebrile and denies chest pain or shortness of breath. No reports of nausea or vomiting and tolerating diet. Will follow up with case management. 05/11/2022 Patient is seen and evaluated in follow-up this morning in case management following [facility] has accepted the patient and currently awaiting insurance authorization which was submitted today. Possible discharge in 24 hours. Patient is continued on Librium taper and as needed CIWA protocol although has not been requiring any Ativan. Patient continues on gentle IV hydration and will continue. Encouraged oral intake and increased activity as tolerated. Patient denies chest pain or shortness of breath. Patient is afebrile. Patient denies nausea or vomiting and has been tolerating dysphagia diet. 05/12/2022 Patient is seen this morning with family at the bedside reports that he is more lethargic today and difficult to arouse. Patient is lethargic although arousable on exam. Answering questions appropriately but is more fatigued. No reports of overnight issues, but RN this morning reports a dose of ativan was given around 3am this morning. Will decrease and taper the librium. Patient now having fevers and lower blood pressure. Recommend IV fluids and will get a chest xray, ua with reflex to culture, blood culture, tylenol for fever, and further labs. Will order covid and influenza testing as well. Check procalcitonin. 05/13/2022 Patient is seen today and has been started on IV rocephin and reported to have positive blood cultures and are growing kleb oxytoca. Recommend repeat blood cultures. Will consult ID and appreciate input and recommendations as there is a clinical suspicion for hospital acquired pneumonia. Will decrease the IV fluid rate and follow up with repeat labs. Will also add duoneb treatments and encouraged incentive spirometer use at least 10 times per hour while awake. Sputum culture ordered as well. Patient with low grade temps. Patient denies chest pain or shortness of breath. Patient does report some cough. Not eating as much but reports he did eat some breakfast which is improved from yesterday. 05/14/2022 Patient is seen today and continues on IV ceftriaxone and cultures showing klebsiella oxytoca. ID following and ct abdomen ordered to assess for possible abdominal source of infection due to elevated LFTs. Patient started on duoneb treatments although has been refusing. Needs constant encouragement on IS use. Sputum culture was ordered and continues to not be collected. Patient denies chest pain or shortness of breath. Awaiting repeat blood cultures. Recommend repeat labs in the am and will continue to monitor closely. 05/15/2022 Patient is seen today and abdominal ultrasound done with no acute process noted and suggestive with hepatic steatosis. Patient is on ceftriaxone and will continue. Patient is afebrile and denies chest pain or shortness of breath. Patient was up and able to shower yesterday but continues to mostly sleep. encouraged increased activity as tolerated. Repeat blood cultures are negative. Recommend repeat labs and follow up chest xray. Continue to encourage IS use. Review of systems: Constitutional: reports of fatigue, fever, or chills Cardiovascular: No reports of chest pain or palpitations Respiratory: No reports of shortness of breath, reports cough GI: No reports of nausea, vomiting, or diarrhea : No reports of dysuria or retention Neurovascular: reports of weakness All medications have been reviewed PHYSICAL EXAMINATION: GENERAL: The patient is alert and oriented x1-2, with intermittent periods of confusion, thin built, elderly appearing male, lethargic today HEENT: Pupils are round and equally reacting to light. EOMI. no scleral icterus. No conjunctival pallor. Normocephalic, atraumatic. No pharyngeal erythema. No thyromegaly. CARDIOVASCULAR: S1 and S2 muffled PULMONARY: diminished breath sounds bilaterally with some scattered rhonchi noted. ABDOMEN: soft. Nontender on exam. non-distended, normoactive bowel sounds. No palpable organomegaly. MUSCULOSKELETAL: No joint swelling or deformity. EXTREMITIES: No cyanosis, clubbing, or pedal edema. NEUROLOGICAL: Gross neurological examination did not reveal any focal deficits. Diffuse weakness SKIN: No rashes. Assessment: Acute alcohol withdrawal and early delirium tremens, resolved fevers, unknown etiology, work-up in progress possible hospital acquired pneumonia with blood cultures growing klebsiella oxytoca hepatic steatosis with elevated lfts. Continued ongoing nicotine dependence Thrombocytopenia most likely from chronic alcohol use, improving Acute rhabdomyolysis possibly due to alcohol Hyponatremia, hypovolemic from poor oral intake improved with IV fluids History of anxiety/depression Gait dysfunction GI prophylaxis DVT prophylaxis Full code Plan: Continue IV fluids although decrease to 50ml per hour Cultures have finalized klebsiella oxytoca with sensitivities, repeat blood cu ltures are negative Encouraged incentive spirometer use and needs constant encouragement Continue librium and seroquel, will decrease dose of librium and taper Monitor for acute alcohol withdrawal seizure Replace electrolytes as needed follow up labs and chest xray in the am. Encourage increased activity as tolerated. The impression and plan of care has been dictated as a scribe by Leticia Hardy, nurse practitioner as directed. Dr. Bailey MD I have performed a history and examination and MDM of this patient, discussed the same with the dictator, and agree with the dictator's assessment and plan as written ,documented as a scribe. Based on total visit time, I have performed more than 50% of the visit. Any additional findings or plans will be noted. Objective - Vital Signs Vital signs: Vital Signs Temp 97.5 F L 05/15/22 17:10 Pulse 69 05/15/22 17:10 Resp 18 05/15/22 17:10 BP 121/77 05/15/22 17:10 Pulse Ox 91 L 05/15/22 17:10 FiO2 Intake & Output 05/15/22 05/15/22 05/16/22 06:59 18:59 06:59 Intake Total 940 Output Total 500 Balance 440 Intake: Intake, IV Titration 700 Amount Sodium Chloride 0.9% 1, 600 000 ml @ 50 mls/hr IV . Q20H [facility] Rx#:[id number] cefTRIAXone 2 gm In 100 Sodium Chloride 0.9% 50 ml @ 100 mls/hr IVPB Q24HR [facility] Rx#:[id number] Oral 240 Output: Urine 500 Other: Voiding Method Toilet Toilet Urinal Urinal Diaper Diaper Incontinent Incontinent # Voids 2 1 - Labs CBC & Chem 7: 05/12/22 15:37 05/14/22 05:38 Labs: Microbiology - Last 24 Hours (Table) 05/12/22 15:27 Blood Culture Gram Stain - Final Blood Blood Culture - Final Klebsiella oxytoca 05/13/22 09:47 Blood Culture - Preliminary Blood No Growth after 48 hours 05/14/22 05:38 Blood Culture - Preliminary Blood No Growth after 24 hours
[2022-05-15] MEDS: QUEtiapine 25 MG TAB PO SCH (21:25)
[2022-05-16] MEDS: THIAMINE 100 MG TAB PO SCH ×2 (08:31→17:04)
[2022-05-16] MEDS: HEPARIN SODIUM,PORCINE/PF 5,000 UNIT/0.5 ML SYRINGE SQ SCH ×2 (08:31→20:11)
[2022-05-16] MEDS: PANTOPRAZOLE 40 MG TABLET PO SCH (08:31)
[2022-05-16] MEDS: IPRATROPIUM-ALBUTEROL 3 ML NEB INHALATION SCH ×3 (08:36→19:55)
[2022-05-16] MEDS ORDERED: chlordiazePOXIDE 25 MG CAP PO SCH (09:00)
--- NOTE | 2022-05-16 10:57 | CDI ---
Documentation Clarification Form Date: 05/16/2022 10:22:01 AM From: Nury Reese RN CCDS Admit Date: 05/04/2022 01:58:00 PM Patient Name: Jeff Segura Visit Number: [id number] Discharge Date: ATTENTION: The Clinical Documentation Specialists (CDI) and [facility] Coding Staff appreciate your assistance in clarifying documentation. Please respond to the clarification below the line at the bottom and electronically sign. The CDI & [facility] Coding staff will review the response and follow-up if needed. Please note: Queries are made part of the Legal Health Record. If you have any questions, please contact the author of this message via ITS. Dr. Stalin [facility] acquired pneumonia is documented 05/13, Medicine progress note. Additional clarification regarding the type of pneumonia is requested. History/Risk Factors: 66-year-old male presents to the ED with alcohol withdrawal. Medical History: Current everyday smoker, anxiety and depression. Clinical Indicators: 05/13 Medicine progress note: Fevers, unknown etiology, work-up in progress possible hospital acquired pneumonia with blood cultures growing Klebsiella oxytoca. WBC 05/12: 5.4; Neutrophils 05/12: 4.0 Blood cultures 05/12: Klebsiella oxytoca CXR 05/12: Diminished inspiration with new left greater than right bibasilar opacities. Lung/Breathing assessment 05/13, Medicine progress: Diminished breath sounds bilaterally with some scattered rhonchi noted. Treatment: Antibiotics: 05/12 Ceftriaxone 2gm IVPB Q24HR Breathing Tx: 05/13 Albuterol / Ipratropium 3ml Inhalation TID PRN; 05/13 Albuterol / Ipratropium 3ml Inhalation TID CANDY Please clarify the type of pneumonia, if known: [ x ] Gram Negative Bacterial Pneumonia [ ] Other bacteria (please specify) [ ] Other, please specify [ ] Unable to determine Documented in Medicine progress note 05/16: resolved fevers, unknown etiology, possible hospital acquired pneumonia due to gram negative pathogen growing klebsiella oxytoca. Dr. Avalos. (Template Last Revised: November 2020) MTDD
[2022-05-16] MEDS: MULTIVITAMINS, THERA 1 EACH TAB PO SCH (11:40)
[2022-05-16] MEDS: amLODIPine 5 MG TAB PO SCH (11:40)
[2022-05-16] MEDS: FOLIC ACID 1 MG TAB PO SCH (11:40)
--- NOTE | 2022-05-16 11:40 | P.PN ---
Subjective Progress Note Date: 05/15/22 Principal diagnosis: Klebsiella bacteremia Patient is a 66-year-old male with a past medical history significant for alcoholism, presented to hospital for evaluation of mental status changes and the patient was being treated for possible DTs subsequently he did spike a fever and did have a positive blood culture with Klebsiella concern for possible pneumonia. On today's evaluation that is 05/15/2022, the patient remains to be afebrile, the patient is sleepy lethargic and did not provide any history and no vomiting no diarrhea or any other changes reported by the nursing staff Objective - Vital Signs Vital signs: Vital Signs Temp 97.7 F 05/15/22 11:38 Pulse 68 05/15/22 11:38 Resp 18 05/15/22 11:38 BP 159/84 05/15/22 11:38 Pulse Ox 92 L 05/15/22 11:38 FiO2 Intake & Output 05/14/22 05/15/22 05/15/22 18:59 06:59 18:59 Intake Total 160 Output Total 200 Balance 160 -200 Intake: Oral 160 Output: Urine 200 Other: Voiding Method Toilet Toilet Toilet Urinal Urinal Urinal Diaper Diaper Diaper Incontinent Incontinent Incontinent # Voids 2 2 - Exam GENERAL DESCRIPTION: Middle-age male lying in bed in no distress RESPIRATORY SYSTEM: Unlabored breathing , decreased breath sounds at bases HEART: S1 S2 regular rate and rhythm , ABDOMEN: Soft , no tenderness EXTREMITIES: No edema feet - Labs CBC & Chem 7: 05/12/22 15:37 05/14/22 05:38 Labs: Microbiology - Last 24 Hours (Table) 05/12/22 15:27 Blood Culture Gram Stain - Final Blood Blood Culture - Final Klebsiella oxytoca 05/13/22 09:47 Blood Culture - Preliminary Blood No Growth after 48 hours 05/14/22 05:38 Blood Culture - Preliminary Blood No Growth after 24 hours Assessment and Plan (1) Bacteremia Current Visit: Yes Status: Acute Code(s): R78.81 - BACTEREMIA SNOMED Code(s): 1433852 Plan: 1patient with a Klebsiella bacteremia could be related to the left lower lobe pneumonia this patient has been in the hospital for the last 9 days and treated for possible DTs, patient did have a negative UA abdominal soft clinical examination and no evidence of any joint swelling or cellulitis however the patient did have a elevated liver enzymes and will need to rule out intra- abdominal source 2-blood cultures has been repeated document clearance of bacteremia 3- ultrasound of the liver and gallbladder area, did not show any gallbladder abnormality possible hepatocellular disease 4-patient fever has resolved and the patient will continue with Rocephin 2 g daily Time with Patient: Less than 30
--- NOTE | 2022-05-16 11:41 | P.PN ---
Subjective Progress Note Date: 05/16/22 Principal diagnosis: Klebsiella bacteremia Patient is a 66-year-old male with a past medical history significant for alcoholism, presented to hospital for evaluation of mental status changes and the patient was being treated for possible DTs subsequently he did spike a fever and did have a positive blood culture with Klebsiella concern for possible pneumonia. On today's evaluation that is 05/16/2022, the patient continues to be afebrile, the patient is more awake and alert today the patient is breathing comfortably on room air. Denies having any chest pain occasional cough no abdominal pain or diarrhea Objective - Vital Signs Vital signs: Vital Signs Temp 97.5 F L 05/16/22 05:39 Pulse 74 05/16/22 05:39 Resp 15 05/16/22 05:39 BP 150/90 05/16/22 05:39 Pulse Ox 93 L 05/16/22 05:39 FiO2 Intake & Output 05/15/22 05/16/22 05/16/22 18:59 06:59 18:59 Intake Total 940 Output Total 500 1 Balance 440 -1 Intake: Intake, IV Titration 700 Amount Sodium Chloride 0.9% 1, 600 000 ml @ 50 mls/hr IV . Q20H [facility] Rx#:[id number] cefTRIAXone 2 gm In 100 Sodium Chloride 0.9% 50 ml @ 100 mls/hr IVPB Q24HR [facility] Rx#:[id number] Oral 240 Output: Urine 500 1 Other: Voiding Method Toilet Toilet Toilet Urinal Urinal Urinal Diaper Diaper Diaper Incontinent Incontinent Incontinent # Voids 1 1 - Exam GENERAL DESCRIPTION: Middle-age male lying in bed in no distress RESPIRATORY SYSTEM: Unlabored breathing , decreased breath sounds at bases HEART: S1 S2 regular rate and rhythm , ABDOMEN: Soft , no tenderness EXTREMITIES: No edema feet - Labs CBC & Chem 7: 05/12/22 15:37 05/14/22 05:38 Labs: Microbiology - Last 24 Hours (Table) 05/14/22 05:38 Blood Culture - Preliminary Blood No Growth after 48 hours 05/12/22 15:27 Blood Culture Gram Stain - Final Blood Blood Culture - Final Klebsiella oxytoca 05/13/22 09:47 Blood Culture - Preliminary Blood No Growth after 48 hours Assessment and Plan (1) Bacteremia Current Visit: Yes Status: Acute Code(s): R78.81 - BACTEREMIA SNOMED Code(s): 8201060 Plan: 1patient with a Klebsiella bacteremia could be related to the left lower lobe pneumonia this patient has been in the hospital for the last 9 days and treated for possible DTs, patient did have a negative UA abdominal soft clinical examination and no evidence of any joint swelling or cellulitis however the patient did have a elevated liver enzymes and will need to rule out intra- abdominal source 2-blood cultures has been repeated document clearance of bacteremia 3- ultrasound of the liver and gallbladder area, did not show any gallbladder abnormality possible hepatocellular disease 4-patient has shown clinical improvement fever has resolved blood culture repeat has been negative he currently on Rocephin finishing therapy with oral Ceftin Time with Patient: Less than 30
[2022-05-16] MEDS: SODIUM CHLORIDE 0.9% 1,000 ML IV SCH (12:05)
[2022-05-16] MEDS: LORazepam 1 MG TAB PO PRN (17:04)
[2022-05-16] MEDS: QUEtiapine 25 MG TAB PO SCH (20:11)
--- NOTE | 2022-05-17 00:39 | P.PN ---
Subjective Progress Note Date: 05/16/22 This is a 66-year-old male who was recently admitted with a past medical history of significant alcohol use and admitted with alcohol withdrawal and is being closely monitored. Patient also with features of rhabdomyolysis and is maintained on IV hydration. Patient continues on CIWA protocol and also con tinues with significant weakness. Case management following as physical therapy recommending ECF and patient along with family are agreeable. Patient is currently afebrile denies chest pain or shortness of breath. Patient's blood pressure mildly elevated recommend monitoring closely and will repeat labs. Patient denies nausea or vomiting and is tolerating oral intake. 05/06/2022 Patient is seen and evaluated in follow-up this morning continues to be confused and redirects easily maintained on CIWA protocol. Patient also continues on IV hydration and creatinine kinase is improved from 1401 on admission down to 802. Patient continues to require IV Ativan and will add oral Ativan and also Librium taper. Will add Seroquel at night as patient continues to have confusion needing redirection. Currently a sitter at the bedside for safety. Patient is afebrile and denies chest pain or shortness of breath. Patient is tolerating diet although has no teeth and has been changed to dysphagia ground diet. Potassium was 3.4 today and will replace and recommend repeat labs. Magnesium was 1.9 today. Liver functions are trending down. Case management is following as patient continues with weakness and recommend physical therapy evaluation daily and plan is for ECF. 05/07/2022 Patient is evaluated today resting in bed. He does have tremors noted with arms extended. Less confused today. He is able to hold a conversation. Labs today showing a sodium level of 134, potassium level 3.6, BUN 10, creatinine 0.48. Total bilirubini 2.0, liver enzymes stable. He continues on normal saline at 75 mls per hour. Will repeat sodium in the AM. He is requiring IV ativan about twice a day, seroquel at HS, and also he is on librium taper currently 25 mg PO TID. Blood pressure 147/85, heart rate 68, afebrile, 96% room air. Sitter no longer at bedside. Patient does not currently have accepting facility to ECF. Follow up on Monday when case management returns. 05/08/2022 Patient continues on IV ativan for acute alcohol withdrawal delirum tremens. He is also on librium, seroquel. No sitter at bedside. No acute event overnight. Mentation is improving. Sodium has improved to 135, potassium 3.6, magnesium 2.0. Continues on normal saline. Blood pressure 148/86. Increase activity level, encourage diet. Pending subacute rehab, having issues finding accepting facility. 05/09/2022 Patient today is doing well he is alert x 2-3. No acute events overnight, has not had sitter at the bedside. Tremors have resolved. He has not required IV ativan overnight. He does report increasing diet and has been eating and drinking well. He is afebrile, heart rate 75, blood pressure 106/72, 93% room air. Family is wanting evaluation for short term memory loss speech therapy has been consulted. Discussed clinical course and plan of care with family over the phone. There is no power of trust and estates attorney in place. Patient will need subacute rehab, daughter would like permanent placement. Requesting to speak with case management tomorrow regarding discharge planning. 05/10/2022 Patient is seen and evaluated in follow-up and undergoing speech therapy evaluation for cognition with family at the bedside. Patient continues on Librium taper and not requiring ativan per nursing. Case management following and continuing to work on an accepting ecf. PT working with the patient today for updated notes as patient continues with weakness. Patient is afebrile and denies chest pain or shortness of breath. No reports of nausea or vomiting and tolerating diet. Will follow up with case management. 05/11/2022 Patient is seen and evaluated in follow-up this morning in case management following [facility] has accepted the patient and currently awaiting insurance authorization which was submitted today. Possible discharge in 24 hours. Patient is continued on Librium taper and as needed CIWA protocol although has not been requiring any Ativan. Patient continues on gentle IV hydration and will continue. Encouraged oral intake and increased activity as tolerated. Patient denies chest pain or shortness of breath. Patient is afebrile. Patient denies nausea or vomiting and has been tolerating dysphagia diet. 05/12/2022 Patient is seen this morning with family at the bedside reports that he is more lethargic today and difficult to arouse. Patient is lethargic although arousable on exam. Answering questions appropriately but is more fatigued. No reports of overnight issues, but RN this morning reports a dose of ativan was given around 3am this morning. Will decrease and taper the librium. Patient now having fevers and lower blood pressure. Recommend IV fluids and will get a chest xray, ua with reflex to culture, blood culture, tylenol for fever, and further labs. Will order covid and influenza testing as well. Check procalcitonin. 05/13/2022 Patient is seen today and has been started on IV rocephin and reported to have positive blood cultures and are growing kleb oxytoca. Recommend repeat blood cultures. Will consult ID and appreciate input and recommendations as there is a clinical suspicion for hospital acquired pneumonia. Will decrease the IV fluid rate and follow up with repeat labs. Will also add duoneb treatments and encouraged incentive spirometer use at least 10 times per hour while awake. Sputum culture ordered as well. Patient with low grade temps. Patient denies chest pain or shortness of breath. Patient does report some cough. Not eating as much but reports he did eat some breakfast which is improved from yesterday. 05/14/2022 Patient is seen today and continues on IV ceftriaxone and cultures showing klebsiella oxytoca. ID following and ct abdomen ordered to assess for possible abdominal source of infection due to elevated LFTs. Patient started on duoneb treatments although has been refusing. Needs constant encouragement on IS use. Sputum culture was ordered and continues to not be collected. Patient denies chest pain or shortness of breath. Awaiting repeat blood cultures. Recommend repeat labs in the am and will continue to monitor closely. 05/15/2022 Patient is seen today and abdominal ultrasound done with no acute process noted and suggestive with hepatic steatosis. Patient is on ceftriaxone and will continue. Patient is afebrile and denies chest pain or shortness of breath. Patient was up and able to shower yesterday but continues to mostly sleep. encouraged increased activity as tolerated. Repeat blood cultures are negative. Recommend repeat labs and follow up chest xray. Continue to encourage IS use. 05/16/2022 Patient is seen and evaluated today and continued on ceftriaxone with ID following. Cultures finalized with klebsiella oxytoca with sensitivities and patient remains afebrile. Off oxygen and maintaining oxygen saturations above 90%. Encouraged increased activity as tolerated and encouraged oral intake. Working on weaning librium and will taper off tomorrow. [facility] has now declined the patient and family feels they are unable to care for him recommending referrals to other facilities that can possibly accommodate for weakness. PT/OT following. Encouraged incentive spirometer use. Repeat blood cultures remain negative. Review of systems: Constitutional: no reports of fatigue, fever, or chills Cardiovascular: No reports of chest pain or palpitations Respiratory: No reports of shortness of breath, reports cough GI: No reports of nausea, vomiting, or diarrhea : No reports of dysuria or retention Neurovascular: reports of weakness All medications have been reviewed PHYSICAL EXAMINATION: GENERAL: The patient is alert and oriented x2, with intermittent periods of confusion, thin built, elderly appearing male, more awake today HEENT: Pupils are round and equally reacting to light. EOMI. no scleral icterus. No conjunctival pallor. Normocephalic, atraumatic. No pharyngeal erythema. No thyromegaly. CARDIOVASCULAR: S1 and S2 muffled PULMONARY: diminished breath sounds bilaterally with some scattered rhonchi noted. ABDOMEN: soft. Nontender on exam. non-distended, normoactive bowel sounds. No palpable organomegaly. MUSCULOSKELETAL: No joint swelling or deformity. EXTREMITIES: No cyanosis, clubbing, or pedal edema. NEUROLOGICAL: Gross neurological examination did not reveal any focal deficits. Diffuse weakness SKIN: No rashes. Assessment: Acute alcohol withdrawal and early delirium tremens, resolved fevers, unknown etiology, possible hospital acquired pneumonia due to gram negative pathogen growing klebsiella oxytoca hepatic steatosis with elevated lfts. Continued ongoing nicotine dependence Thrombocytopenia most likely from chronic alcohol use, improving Acute rhabdomyolysis possibly due to alcohol Hyponatremia, hypovolemic from poor oral intake improved with IV fluids History of anxiety/depression Gait dysfunction GI prophylaxis DVT prophylaxis Full code Plan: Cultures have finalized klebsiella oxytoca with sensitivities, repeat blood cultures are negative, patient continued on ceftriaxone and will transition to oral ceftin on discharge. Encouraged incentive spirometer use and needs constant encouragement Continue librium and seroquel, will decrease dose of librium and taper, wean off librium in the next day Monitor for acute alcohol withdrawal seizure Blood pressure trending up and will add norvasc. Replace electrolytes as needed Encourage increased activity as tolerated. Family requesting other referrals to critical access hospital as [facility] has now declined. Case management is following The impression and plan of care has been dictated as a scribe by Leticia Hardy, nurse practitioner as directed. Dr. Bailey MD I have performed a history and examination and MDM of this patient, discussed the same with the dictator, and agree with the dictator's assessment and plan as written ,documented as a scribe. Based on total visit time, I have performed more than 50% of the visit. Any additional findings or plans will be noted. Objective - Vital Signs Vital signs: Vital Signs Temp 99.5 F 05/16/22 11:20 Pulse 89 05/16/22 11:20 Resp 18 05/16/22 11:20 BP 132/80 05/16/22 11:20 Pulse Ox 91 L 05/16/22 11:20 FiO2 Intake & Output 05/15/22 05/16/22 05/16/22 18:59 06:59 18:59 Intake Total 940 Output Total 500 102 Balance 440 -102 Intake: Intake, IV Titration 700 Amount Sodium Chloride 0.9% 1, 600 000 ml @ 50 mls/hr IV . Q20H [facility] Rx#:[id number] cefTRIAXone 2 gm In 100 Sodium Chloride 0.9% 50 ml @ 100 mls/hr IVPB Q24HR [facility] Rx#:[id number] Oral 240 Output: Urine 500 102 Other: Voiding Method Toilet Toilet Toilet Urinal Urinal Urinal Diaper Diaper Diaper Incontinent Incontinent Incontinent # Voids 1 1 - Labs CBC & Chem 7: 05/12/22 15:37 05/14/22 05:38 Labs: Microbiology - Last 24 Hours (Table) 05/13/22 09:47 Blood Culture - Preliminary Blood No Growth after 72 hours 05/14/22 05:38 Blood Culture - Preliminary Blood No Growth after 48 hours 05/12/22 15:27 Blood Culture Gram Stain - Final Blood Blood Culture - Final Klebsiella oxytoca
[2022-05-17] MEDS: IPRATROPIUM-ALBUTEROL 3 ML NEB INHALATION SCH ×3 (08:55→23:17)
[2022-05-17] MEDS: HEPARIN SODIUM,PORCINE/PF 5,000 UNIT/0.5 ML SYRINGE SQ SCH ×2 (09:05→20:31)
[2022-05-17] MEDS: THIAMINE 100 MG TAB PO SCH ×2 (09:06→17:57)
[2022-05-17] MEDS: amLODIPine 5 MG TAB PO SCH (09:06)
[2022-05-17] MEDS: chlordiazePOXIDE 25 MG CAP PO SCH (09:06)
[2022-05-17] MEDS: PANTOPRAZOLE 40 MG TABLET PO SCH (09:06)
[2022-05-17] MEDS: SODIUM CHLORIDE 0.9% 1,000 ML IV SCH (09:13)
[2022-05-17] MEDS: ACETAMINOPHEN TAB 325 MG TAB PO PRN (11:23)
[2022-05-17] MEDS: FOLIC ACID 1 MG TAB PO SCH (11:23)
[2022-05-17] MEDS: MULTIVITAMINS, THERA 1 EACH TAB PO SCH (11:23)
[2022-05-17] MEDS: AMPICILLIN-SULBACTAM 3 GM in SODIUM CHLORIDE 0.9% 100 ML IVPB SCH ×3 (13:16→23:19)
--- NOTE | 2022-05-17 15:49 | XR ---
EXAMINATION TYPE: XR chest 1V portable DATE OF EXAM: 05/17/2022 COMPARISON: 05/12/2022 HISTORY: Fever TECHNIQUE: Single frontal view of the chest is obtained. FINDINGS: A coarsened interstitium with elevated hemidiaphragm and left lower lobe consolidation. Th ere is arthropathy of the shoulders. No pneumothorax. Atherosclerotic change aorta. IMPRESSION: Lower lobe atelectasis or infiltrate. Coarsened interstitium could be associated with ch ronic interstitial lung disease. Interstitial pneumonitis in the differential diagnosis.
[2022-05-17] MEDS: QUEtiapine 25 MG TAB PO SCH (20:31)
--- NOTE | 2022-05-17 22:54 | P.PN ---
Subjective Progress Note Date: 05/17/22 Principal diagnosis: Klebsiella bacteremia Patient is a 66-year-old male with a past medical history significant for alcoholism, presented to hospital for evaluation of mental status changes and the patient was being treated for possible DTs subsequently he did spike a fever and did have a positive blood culture with Klebsiella concern for possible pneumonia. On today's evaluation that is 05/17/2022, the patient did spike a fever of 101F this morning the patient is more lethargic and sleepy today and did not provide any history and vomiting diarrhea or any other changes reported by the nursing staff Objective - Vital Signs Vital signs: Vital Signs Temp 102.3 F H 05/17/22 11:15 Pulse 92 05/17/22 11:15 Resp 18 05/17/22 11:15 BP 124/72 05/17/22 11:15 Pulse Ox 92 L 05/17/22 11:15 FiO2 Intake & Output 05/16/22 05/17/22 05/17/22 18:59 06:59 18:59 Intake Total 920 Output Total 103 1 Balance -103 920 -1 Intake: Intake, IV Titration 200 Amount Sodium Chloride 0.9% 1, 200 000 ml @ 50 mls/hr IV . Q20H [facility] Rx#:[id number] Oral 720 Output: Urine 103 1 Other: Voiding Method Toilet Toilet Toilet Urinal Urinal Urinal Diaper Diaper Diaper Incontinent Incontinent Incontinent # Voids 3 - Exam GENERAL DESCRIPTION: Middle-age male lying in bed in no distress RESPIRATORY SYSTEM: Unlabored breathing , decreased breath sounds at bases HEART: S1 S2 regular rate and rhythm , ABDOMEN: Soft , no tenderness EXTREMITIES: No edema feet - Labs CBC & Chem 7: 05/12/22 15:37 05/14/22 05:38 Labs: Microbiology - Last 24 Hours (Table) 05/13/22 09:47 Blood Culture - Preliminary Blood No Growth after 96 hours 05/14/22 05:38 Blood Culture - Preliminary Blood No Growth after 72 hours Assessment and Plan (1) Bacteremia Current Visit: Yes Status: Acute Code(s): R78.81 - BACTEREMIA SNOMED Code(s): 7413222 Plan: 1patient with a Klebsiella bacteremia could be related to the left lower lobe pneumonia this patient has been in the hospital for the last 9 days and treated for possible DTs, patient did have a negative UA abdominal soft clinical examination and no evidence of any joint swelling or cellulitis however the patient did have a elevated liver enzymes and will need to rule out intra-abdominal source 2-blood cultures has been repeated document clearance of bacteremia 3- ultrasound of the liver and gallbladder area, did not show any gallbladder abnormality possible hepatocellular disease 4-patient with a new fever we will recheck blood cultures obtained UA and a repeat chest x-ray 5-discontinue Rocephin and start the patient on Unasyn Time with Patient: Less than 30
[2022-05-18] MEDS: AMPICILLIN-SULBACTAM 3 GM in SODIUM CHLORIDE 0.9% 100 ML IVPB SCH ×3 (04:55→20:36)
[2022-05-18] MEDS: SODIUM CHLORIDE 0.9% 1,000 ML IV SCH (04:58)
[2022-05-18 05:09] LABS: Appearance,Urine Clear (Clear); Bilirubin,Urine Negative (Negative); Blood,Urine Negative (Negative); Color,Urine Yellow; Glucose,Urine (UA) Negative (Negative); Ketones,Urine Negative (Negative); Leukocyte Esterase,Urine Negative (Negative); Nitrite,Urine Negative (Negative); Protein,Urine Negative (Negative); Specific Gravity,Urine 1.017 (1.001-1.035)
--- NOTE | 2022-05-18 05:41 | P.PN ---
Subjective Progress Note Date: 05/17/22 This is a 66-year-old male who was recently admitted with a past medical history of significant alcohol use and admitted with alcohol withdrawal and is being closely monitored. Patient also with features of rhabdomyolysis and is maintained on IV hydration. Patient continues on CIWA protocol and also con tinues with significant weakness. Case management following as physical therapy recommending ECF and patient along with family are agreeable. Patient is currently afebrile denies chest pain or shortness of breath. Patient's blood pressure mildly elevated recommend monitoring closely and will repeat labs. Patient denies nausea or vomiting and is tolerating oral intake. 05/06/2022 Patient is seen and evaluated in follow-up this morning continues to be confused and redirects easily maintained on CIWA protocol. Patient also continues on IV hydration and creatinine kinase is improved from 1401 on admission down to 802. Patient continues to require IV Ativan and will add oral Ativan and also Librium taper. Will add Seroquel at night as patient continues to have confusion needing redirection. Currently a sitter at the bedside for safety. Patient is afebrile and denies chest pain or shortness of breath. Patient is tolerating diet although has no teeth and has been changed to dysphagia ground diet. Potassium was 3.4 today and will replace and recommend repeat labs. Magnesium was 1.9 today. Liver functions are trending down. Case management is following as patient continues with weakness and recommend physical therapy evaluation daily and plan is for ECF. 05/07/2022 Patient is evaluated today resting in bed. He does have tremors noted with arms extended. Less confused today. He is able to hold a conversation. Labs today showing a sodium level of 134, potassium level 3.6, BUN 10, creatinine 0.48. Total bilirubini 2.0, liver enzymes stable. He continues on normal saline at 75 mls per hour. Will repeat sodium in the AM. He is requiring IV ativan about twice a day, seroquel at HS, and also he is on librium taper currently 25 mg PO TID. Blood pressure 147/85, heart rate 68, afebrile, 96% room air. Sitter no longer at bedside. Patient does not currently have accepting facility to ECF. Follow up on Monday when case management returns. 05/08/2022 Patient continues on IV ativan for acute alcohol withdrawal delirum tremens. He is also on librium, seroquel. No sitter at bedside. No acute event overnight. Mentation is improving. Sodium has improved to 135, potassium 3.6, magnesium 2.0. Continues on normal saline. Blood pressure 148/86. Increase activity level, encourage diet. Pending subacute rehab, having issues finding accepting facility. 05/09/2022 Patient today is doing well he is alert x 2-3. No acute events overnight, has not had sitter at the bedside. Tremors have resolved. He has not required IV ativan overnight. He does report increasing diet and has been eating and drinking well. He is afebrile, heart rate 75, blood pressure 106/72, 93% room air. Family is wanting evaluation for short term memory loss speech therapy has been consulted. Discussed clinical course and plan of care with family over the phone. There is no power of family law attorney in place. Patient will need subacute rehab, daughter would like permanent placement. Requesting to speak with case management tomorrow regarding discharge planning. 05/10/2022 Patient is seen and evaluated in follow-up and undergoing speech therapy evaluation for cognition with family at the bedside. Patient continues on Librium taper and not requiring ativan per nursing. Case management following and continuing to work on an accepting ecf. PT working with the patient today for updated notes as patient continues with weakness. Patient is afebrile and denies chest pain or shortness of breath. No reports of nausea or vomiting and tolerating diet. Will follow up with case management. 05/11/2022 Patient is seen and evaluated in follow-up this morning in case management following [facility] has accepted the patient and currently awaiting insurance authorization which was submitted today. Possible discharge in 24 hours. Patient is continued on Librium taper and as needed CIWA protocol although has not been requiring any Ativan. Patient continues on gentle IV hydration and will continue. Encouraged oral intake and increased activity as tolerated. Patient denies chest pain or shortness of breath. Patient is afebrile. Patient denies nausea or vomiting and has been tolerating dysphagia diet. 05/12/2022 Patient is seen this morning with family at the bedside reports that he is more lethargic today and difficult to arouse. Patient is lethargic although arousable on exam. Answering questions appropriately but is more fatigued. No reports of overnight issues, but RN this morning reports a dose of ativan was given around 3am this morning. Will decrease and taper the librium. Patient now having fevers and lower blood pressure. Recommend IV fluids and will get a chest xray, ua with reflex to culture, blood culture, tylenol for fever, and further labs. Will order covid and influenza testing as well. Check procalcitonin. 05/13/2022 Patient is seen today and has been started on IV rocephin and reported to have positive blood cultures and are growing kleb oxytoca. Recommend repeat blood cultures. Will consult ID and appreciate input and recommendations as there is a clinical suspicion for hospital acquired pneumonia. Will decrease the IV fluid rate and follow up with repeat labs. Will also add duoneb treatments and encouraged incentive spirometer use at least 10 times per hour while awake. Sputum culture ordered as well. Patient with low grade temps. Patient denies chest pain or shortness of breath. Patient does report some cough. Not eating as much but reports he did eat some breakfast which is improved from yesterday. 05/14/2022 Patient is seen today and continues on IV ceftriaxone and cultures showing klebsiella oxytoca. ID following and ct abdomen ordered to assess for possible abdominal source of infection due to elevated LFTs. Patient started on duoneb treatments although has been refusing. Needs constant encouragement on IS use. Sputum culture was ordered and continues to not be collected. Patient denies chest pain or shortness of breath. Awaiting repeat blood cultures. Recommend repeat labs in the am and will continue to monitor closely. 05/15/2022 Patient is seen today and abdominal ultrasound done with no acute process noted and suggestive with hepatic steatosis. Patient is on ceftriaxone and will continue. Patient is afebrile and denies chest pain or shortness of breath. Patient was up and able to shower yesterday but continues to mostly sleep. encouraged increased activity as tolerated. Repeat blood cultures are negative. Recommend repeat labs and follow up chest xray. Continue to encourage IS use. 05/16/2022 Patient is seen and evaluated today and continued on ceftriaxone with ID following. Cultures finalized with klebsiella oxytoca with sensitivities and patient remains afebrile. Off oxygen and maintaining oxygen saturations above 90%. Encouraged increased activity as tolerated and encouraged oral intake. Working on weaning librium and will taper off tomorrow. [facility] has now declined the patient and family feels they are unable to care for him recommending referrals to other facilities that can possibly accommodate for weakness. PT/OT following. Encouraged incentive spirometer use. Repeat blood cultures remain negative. 05/17/2022 Patient is seen in follow up today and was doing well however has now spiked some temps again and was continued on ceftriaxone and ID following requesting repeat chest xray, UA, and blood cultures. Encouraged the patient to continue using IS and increase activity as tolerated. Patient denies chest pain or shortness breath. Patient reports to eating with no reports of nausea or vomiting noted. Case management following and continues to search for an accepting facility as we still have no safe discharge home. Family continues to report they have no way of caring for him. Review of systems: Constitutional: no reports of fatigue, fever, or chills Cardiovascular: No reports of chest pain or palpitations Respiratory: No reports of shortness of breath, reports cough GI: No reports of nausea, vomiting, or diarrhea : No reports of dysuria or retention Neurovascular: reports of weakness All medications have been reviewed PHYSICAL EXAMINATION: GENERAL: The patient is alert and oriented x2, with intermittent periods of confusion, thin built, elderly appearing male, more awake today HEENT: Pupils are round and equally reacting to light. EOMI. no scleral icterus. No conjunctival pallor. Normocephalic, atraumatic. No pharyngeal erythema. No thyromegaly. CARDIOVASCULAR: S1 and S2 muffled PULMONARY: diminished breath sounds bilaterally with some scattered rhonchi noted. ABDOMEN: soft. Nontender on exam. non-distended, normoactive bowel sounds. No palpable organomegaly. MUSCULOSKELETAL: No joint swelling or deformity. EXTREMITIES: No cyanosis, clubbing, or pedal edema. NEUROLOGICAL: Gross neurological examination did not reveal any focal deficits. Diffuse weakness SKIN: No rashes. Assessment: Acute alcohol withdrawal and early delirium tremens, resolved fevers, unknown etiology, possible hospital acquired pneumonia due to gram negative pathogen growing klebsiella oxytoca hepatic steatosis with elevated lfts. Continued ongoing nicotine dependence Thrombocytopenia most likely from chronic alcohol use, improving Acute rhabdomyolysis possibly due to alcohol, resolved Hyponatremia, hypovolemic from poor oral intake improved with IV fluids History of anxiety/depression Gait dysfunction GI prophylaxis DVT prophylaxis Full code Plan: Cultures have finalized klebsiella oxytoca with sensitivities, repeat blood cultures are negative, patient continued on ceftriaxone with ID following and considering oral medications on discharge however now patient started developing a fever again today. IV abx changed to Unasyn and repeat cultures, UA, and chest xray ordered for today. Encouraged incentive spirometer use and needs constant encouragement. Patient has not been using and laying in bed most of this admission Continue seroquel Monitor for acute alcohol withdrawal seizure Recommend repeat labs and will discuss with ID about treatment plan Encourage increased activity as tolerated. Family requesting other referrals to counts include [facility] beds at [facility] as [facility] has now declined. Case management is following and so far no one is accepting The impression and plan of care has been dictated as a scribe by Leticia Hardy, nurse practitioner as directed. Dr. Bonnie MD I have performed a history and examination and MDM of this patient, discussed the same with the dictator, and agree with the dictator's assessment and plan as written ,documented as a scribe. Based on total visit time, I have performed more than 50% of the visit. Any additional findings or plans will be noted. Objective - Vital Signs Vital signs: Vital Signs Temp 100.7 F H 05/17/22 12:52 Pulse 92 05/17/22 11:15 Resp 18 05/17/22 11:15 BP 124/72 05/17/22 11:15 Pulse Ox 92 L 05/17/22 11:15 FiO2 Intake & Output 05/16/22 05/17/22 05/17/22 18:59 06:59 18:59 Intake Total 920 Output Total 103 1 Balance -103 920 -1 Intake: Intake, IV Titration 200 Amount Sodium Chloride 0.9% 1, 200 000 ml @ 50 mls/hr IV . Q20H [facility] Rx#:[id number] Oral 720 Output: Urine 103 1 Other: Voiding Method Toilet Toilet Toilet Urinal Urinal Urinal Diaper Diaper Diaper Incontinent Incontinent Incontinent # Voids 3 - Labs CBC & Chem 7: 05/12/22 15:37 05/14/22 05:38 Labs: Microbiology - Last 24 Hours (Table) 05/13/22 09:47 Blood Culture - Preliminary Blood No Growth after 96 hours 05/14/22 05:38 Blood Culture - Preliminary Blood No Growth after 72 hours
--- NOTE | 2022-05-18 05:42 | P.PN ---
Subjective Progress Note Date: 05/16/22 This is a 66-year-old male who was recently admitted with a past medical history of significant alcohol use and admitted with alcohol withdrawal and is being closely monitored. Patient also with features of rhabdomyolysis and is maintained on IV hydration. Patient continues on CIWA protocol and also con tinues with significant weakness. Case management following as physical therapy recommending ECF and patient along with family are agreeable. Patient is currently afebrile denies chest pain or shortness of breath. Patient's blood pressure mildly elevated recommend monitoring closely and will repeat labs. Patient denies nausea or vomiting and is tolerating oral intake. 05/06/2022 Patient is seen and evaluated in follow-up this morning continues to be confused and redirects easily maintained on CIWA protocol. Patient also continues on IV hydration and creatinine kinase is improved from 1401 on admission down to 802. Patient continues to require IV Ativan and will add oral Ativan and also Librium taper. Will add Seroquel at night as patient continues to have confusion needing redirection. Currently a sitter at the bedside for safety. Patient is afebrile and denies chest pain or shortness of breath. Patient is tolerating diet although has no teeth and has been changed to dysphagia ground diet. Potassium was 3.4 today and will replace and recommend repeat labs. Magnesium was 1.9 today. Liver functions are trending down. Case management is following as patient continues with weakness and recommend physical therapy evaluation daily and plan is for ECF. 05/07/2022 Patient is evaluated today resting in bed. He does have tremors noted with arms extended. Less confused today. He is able to hold a conversation. Labs today showing a sodium level of 134, potassium level 3.6, BUN 10, creatinine 0.48. Total bilirubini 2.0, liver enzymes stable. He continues on normal saline at 75 mls per hour. Will repeat sodium in the AM. He is requiring IV ativan about twice a day, seroquel at HS, and also he is on librium taper currently 25 mg PO TID. Blood pressure 147/85, heart rate 68, afebrile, 96% room air. Sitter no longer at bedside. Patient does not currently have accepting facility to ECF. Follow up on Monday when case management returns. 05/08/2022 Patient continues on IV ativan for acute alcohol withdrawal delirum tremens. He is also on librium, seroquel. No sitter at bedside. No acute event overnight. Mentation is improving. Sodium has improved to 135, potassium 3.6, magnesium 2.0. Continues on normal saline. Blood pressure 148/86. Increase activity level, encourage diet. Pending subacute rehab, having issues finding accepting facility. 05/09/2022 Patient today is doing well he is alert x 2-3. No acute events overnight, has not had sitter at the bedside. Tremors have resolved. He has not required IV ativan overnight. He does report increasing diet and has been eating and drinking well. He is afebrile, heart rate 75, blood pressure 106/72, 93% room air. Family is wanting evaluation for short term memory loss speech therapy has been consulted. Discussed clinical course and plan of care with family over the phone. There is no power of classification inspector in place. Patient will need subacute rehab, daughter would like permanent placement. Requesting to speak with case management tomorrow regarding discharge planning. 05/10/2022 Patient is seen and evaluated in follow-up and undergoing speech therapy evaluation for cognition with family at the bedside. Patient continues on Librium taper and not requiring ativan per nursing. Case management following and continuing to work on an accepting ecf. PT working with the patient today for updated notes as patient continues with weakness. Patient is afebrile and denies chest pain or shortness of breath. No reports of nausea or vomiting and tolerating diet. Will follow up with case management. 05/11/2022 Patient is seen and evaluated in follow-up this morning in case management following [facility] has accepted the patient and currently awaiting insurance authorization which was submitted today. Possible discharge in 24 hours. Patient is continued on Librium taper and as needed CIWA protocol although has not been requiring any Ativan. Patient continues on gentle IV hydration and will continue. Encouraged oral intake and increased activity as tolerated. Patient denies chest pain or shortness of breath. Patient is afebrile. Patient denies nausea or vomiting and has been tolerating dysphagia diet. 05/12/2022 Patient is seen this morning with family at the bedside reports that he is more lethargic today and difficult to arouse. Patient is lethargic although arousable on exam. Answering questions appropriately but is more fatigued. No reports of overnight issues, but RN this morning reports a dose of ativan was given around 3am this morning. Will decrease and taper the librium. Patient now having fevers and lower blood pressure. Recommend IV fluids and will get a chest xray, ua with reflex to culture, blood culture, tylenol for fever, and further labs. Will order covid and influenza testing as well. Check procalcitonin. 05/13/2022 Patient is seen today and has been started on IV rocephin and reported to have positive blood cultures and are growing kleb oxytoca. Recommend repeat blood cultures. Will consult ID and appreciate input and recommendations as there is a clinical suspicion for hospital acquired pneumonia. Will decrease the IV fluid rate and follow up with repeat labs. Will also add duoneb treatments and encouraged incentive spirometer use at least 10 times per hour while awake. Sputum culture ordered as well. Patient with low grade temps. Patient denies chest pain or shortness of breath. Patient does report some cough. Not eating as much but reports he did eat some breakfast which is improved from yesterday. 05/14/2022 Patient is seen today and continues on IV ceftriaxone and cultures showing klebsiella oxytoca. ID following and ct abdomen ordered to assess for possible abdominal source of infection due to elevated LFTs. Patient started on duoneb treatments although has been refusing. Needs constant encouragement on IS use. Sputum culture was ordered and continues to not be collected. Patient denies chest pain or shortness of breath. Awaiting repeat blood cultures. Recommend repeat labs in the am and will continue to monitor closely. 05/15/2022 Patient is seen today and abdominal ultrasound done with no acute process noted and suggestive with hepatic steatosis. Patient is on ceftriaxone and will continue. Patient is afebrile and denies chest pain or shortness of breath. Patient was up and able to shower yesterday but continues to mostly sleep. encouraged increased activity as tolerated. Repeat blood cultures are negative. Recommend repeat labs and follow up chest xray. Continue to encourage IS use. 05/16/2022 Patient is seen and evaluated today and continued on ceftriaxone with ID following. Cultures finalized with klebsiella oxytoca with sensitivities and patient remains afebrile. Off oxygen and maintaining oxygen saturations above 90%. Encouraged increased activity as tolerated and encouraged oral intake. Working on weaning librium and will taper off tomorrow. [facility] has now declined the patient and family feels they are unable to care for him recommending referrals to other facilities that can possibly accommodate for weakness. PT/OT following. Encouraged incentive spirometer use. Repeat blood cultures remain negative. Review of systems: Constitutional: no reports of fatigue, fever, or chills Cardiovascular: No reports of chest pain or palpitations Respiratory: No reports of shortness of breath, reports cough GI: No reports of nausea, vomiting, or diarrhea : No reports of dysuria or retention Neurovascular: reports of weakness All medications have been reviewed PHYSICAL EXAMINATION: GENERAL: The patient is alert and oriented x2, with intermittent periods of confusion, thin built, elderly appearing male, more awake today HEENT: Pupils are round and equally reacting to light. EOMI. no scleral icterus. No conjunctival pallor. Normocephalic, atraumatic. No pharyngeal erythema. No thyromegaly. CARDIOVASCULAR: S1 and S2 muffled PULMONARY: diminished breath sounds bilaterally with some scattered rhonchi noted. ABDOMEN: soft. Nontender on exam. non-distended, normoactive bowel sounds. No palpable organomegaly. MUSCULOSKELETAL: No joint swelling or deformity. EXTREMITIES: No cyanosis, clubbing, or pedal edema. NEUROLOGICAL: Gross neurological examination did not reveal any focal deficits. Diffuse weakness SKIN: No rashes. Assessment: Acute alcohol withdrawal and early delirium tremens, resolved fevers, unknown etiology, possible hospital acquired pneumonia due to gram negative pathogen growing klebsiella oxytoca hepatic steatosis with elevated lfts. Continued ongoing nicotine dependence Thrombocytopenia most likely from chronic alcohol use, improving Acute rhabdomyolysis possibly due to alcohol, resolved Hyponatremia, hypovolemic from poor oral intake improved with IV fluids History of anxiety/depression Gait dysfunction GI prophylaxis DVT prophylaxis Full code Plan: Cultures have finalized klebsiella oxytoca with sensitivities, repeat blood cultures are negative, patient continued on ceftriaxone with ID following and considering oral medications on discharge Encouraged incentive spirometer use and needs constant encouragement. Patient has not been using and laying in bed most of this admission Continue seroquel Monitor for acute alcohol withdrawal seizure Recommend repeat labs and will discuss with ID about treatment plan Encourage increased activity as tolerated. Family requesting other referrals to [facility] as [facility] has now declined. Case management is following and so far no one is accepting The impression and plan of care has been dictated as a scribe by Leticia Hardy, nurse practitioner as directed. Dr. Bailey MD I have performed a history and examination and MDM of this patient, discussed the same with the dictator, and agree with the dictator's assessment and plan as written ,documented as a scribe. Based on total visit time, I have performed more than 50% of the visit. Any additional findings or plans will be noted. Objective - Vital Signs Vital signs: Vital Signs Temp 97.5 F L 05/16/22 05:39 Pulse 74 05/16/22 05:39 Resp 15 05/16/22 05:39 BP 150/90 05/16/22 05:39 Pulse Ox 93 L 05/16/22 05:39 FiO2 Intake & Output 05/15/22 05/16/22 05/16/22 18:59 06:59 18:59 Intake Total 940 Output Total 500 Balance 440 Intake: Intake, IV Titration 700 Amount Sodium Chloride 0.9% 1, 600 000 ml @ 50 mls/hr IV . Q20H [facility] Rx#:[id number] cefTRIAXone 2 gm In 100 Sodium Chloride 0.9% 50 ml @ 100 mls/hr IVPB Q24HR [facility] Rx#:[id number] Oral 240 Output: Urine 500 Other: Voiding Method Toilet Toilet Toilet Urinal Urinal Urinal Diaper Diaper Diaper Incontinent Incontinent Incontinent # Voids 1 1 - Labs CBC & Chem 7: 05/12/22 15:37 05/14/22 05:38 Labs: Microbiology - Last 24 Hours (Table) 05/14/22 05:38 Blood Culture - Preliminary Blood No Growth after 48 hours 05/12/22 15:27 Blood Culture Gram Stain - Final Blood Blood Culture - Final Klebsiella oxytoca 05/13/22 09:47 Blood Culture - Preliminary Blood No Growth after 48 hours
[2022-05-18] MEDS: IPRATROPIUM-ALBUTEROL 3 ML NEB INHALATION SCH ×3 (07:38→20:33)
[2022-05-18] MEDS: chlordiazePOXIDE 25 MG CAP PO SCH (08:23)
[2022-05-18] MEDS: PANTOPRAZOLE 40 MG TABLET PO SCH (08:23)
[2022-05-18] MEDS: THIAMINE 100 MG TAB PO SCH ×2 (08:23→18:04)
[2022-05-18] MEDS: amLODIPine 5 MG TAB PO SCH (08:23)
[2022-05-18] MEDS: HEPARIN SODIUM,PORCINE/PF 5,000 UNIT/0.5 ML SYRINGE SQ SCH ×2 (08:23→20:37)
[2022-05-18 10:40] LABS: Basophils # (A) 0.09 X 10*3/uL (0.00-0.10); Basophils % (A) 1.2 %; Eosinophils # (A) 0.04 X 10*3/uL (0.04-0.35); Eosinophils % (A) 0.5 %; HCT 39.4 % (39.6-50.0); HGB 13.3 g/dL (13.0-17.0); Immature Grans, Automated 0.8 %; Lymphocytes # (A) 0.86 X 10*3/uL (0.90-5.00); Lymphocytes % (A) 11.8 %; MCH 31.5 pg (27.0-32.0); MCHC 33.8 g/dL (32.0-37.0); MCV 93.4 fL (80.0-97.0); Mean Platelet Volume 11.7 fL (9.5-12.2); NRBC Per 100 WBC 0 /100 WBCS (0.0-0.0); Neutrophils # (A) 5.44 X 10*3/uL (1.80-7.70); Neutrophils % (A) 74.7 %; Platelet Count 225 X 10*3/uL (140-440); RBC 4.22 X 10*6/uL (4.40-5.60); RDW 13.7 % (11.5-14.5); WBC 7.29 X 10*3/uL (4.50-10.00)
[2022-05-18 11:10] LABS: African American GFR (CKD) 123.1 (60.0-200.0); Albumin 3.3 g/dL (3.8-4.9); Albumin/Globulin Ratio 1.22 (1.60-3.17); Anion Gap 10.7 mmol/L (10.00-18.00); BUN/Creat Ratio 15.83 Ratio (12.00-20.00); Blood Urea Nitrogen 9.5 mg/dL (9.0-27.0); Calcium 8.4 mg/dL (8.7-10.3); Carbon Dioxide 24.3 mmol/L (20.0-27.5); Globulin 2.7 g/dL (1.6-3.3); Non-African American GFR(CKD) 106.3 (60.0-200.0); Total Bilirubin 0.7 mg/dL (0.30-1.20)
[2022-05-18] MEDS: MULTIVITAMINS, THERA 1 EACH TAB PO SCH (11:38)
[2022-05-18] MEDS: FOLIC ACID 1 MG TAB PO SCH (11:38)
[2022-05-18] MEDS: ACETAMINOPHEN TAB 325 MG TAB PO PRN (13:54)
--- NOTE | 2022-05-18 18:11 | P.PN ---
Subjective Progress Note Date: 05/18/22 This is a 66-year-old male who was recently admitted with a past medical history of significant alcohol use and admitted with alcohol withdrawal and is being closely monitored. Patient also with features of rhabdomyolysis and is maintained on IV hydration. Patient continues on CIWA protocol and also con tinues with significant weakness. Case management following as physical therapy recommending ECF and patient along with family are agreeable. Patient is currently afebrile denies chest pain or shortness of breath. Patient's blood pressure mildly elevated recommend monitoring closely and will repeat labs. Patient denies nausea or vomiting and is tolerating oral intake. 05/06/2022 Patient is seen and evaluated in follow-up this morning continues to be confused and redirects easily maintained on CIWA protocol. Patient also continues on IV hydration and creatinine kinase is improved from 1401 on admission down to 802. Patient continues to require IV Ativan and will add oral Ativan and also Librium taper. Will add Seroquel at night as patient continues to have confusion needing redirection. Currently a sitter at the bedside for safety. Patient is afebrile and denies chest pain or shortness of breath. Patient is tolerating diet although has no teeth and has been changed to dysphagia ground diet. Potassium was 3.4 today and will replace and recommend repeat labs. Magnesium was 1.9 today. Liver functions are trending down. Case management is following as patient continues with weakness and recommend physical therapy evaluation daily and plan is for ECF. 05/07/2022 Patient is evaluated today resting in bed. He does have tremors noted with arms extended. Less confused today. He is able to hold a conversation. Labs today showing a sodium level of 134, potassium level 3.6, BUN 10, creatinine 0.48. Total bilirubini 2.0, liver enzymes stable. He continues on normal saline at 75 mls per hour. Will repeat sodium in the AM. He is requiring IV ativan about twice a day, seroquel at HS, and also he is on librium taper currently 25 mg PO TID. Blood pressure 147/85, heart rate 68, afebrile, 96% room air. Sitter no longer at bedside. Patient does not currently have accepting facility to ECF. Follow up on Monday when case management returns. 05/08/2022 Patient continues on IV ativan for acute alcohol withdrawal delirum tremens. He is also on librium, seroquel. No sitter at bedside. No acute event overnight. Mentation is improving. Sodium has improved to 135, potassium 3.6, magnesium 2.0. Continues on normal saline. Blood pressure 148/86. Increase activity level, encourage diet. Pending subacute rehab, having issues finding accepting facility. 05/09/2022 Patient today is doing well he is alert x 2-3. No acute events overnight, has not had sitter at the bedside. Tremors have resolved. He has not required IV ativan overnight. He does report increasing diet and has been eating and drinking well. He is afebrile, heart rate 75, blood pressure 106/72, 93% room air. Family is wanting evaluation for short term memory loss speech therapy has been consulted. Discussed clinical course and plan of care with family over the phone. There is no power of business attorney in place. Patient will need subacute rehab, daughter would like permanent placement. Requesting to speak with case management tomorrow regarding discharge planning. 05/10/2022 Patient is seen and evaluated in follow-up and undergoing speech therapy evaluation for cognition with family at the bedside. Patient continues on Librium taper and not requiring ativan per nursing. Case management following and continuing to work on an accepting ecf. PT working with the patient today for updated notes as patient continues with weakness. Patient is afebrile and denies chest pain or shortness of breath. No reports of nausea or vomiting and tolerating diet. Will follow up with case management. 05/11/2022 Patient is seen and evaluated in follow-up this morning in case management following [facility] has accepted the patient and currently awaiting insurance authorization which was submitted today. Possible discharge in 24 hours. Patient is continued on Librium taper and as needed CIWA protocol although has not been requiring any Ativan. Patient continues on gentle IV hydration and will continue. Encouraged oral intake and increased activity as tolerated. Patient denies chest pain or shortness of breath. Patient is afebrile. Patient denies nausea or vomiting and has been tolerating dysphagia diet. 05/12/2022 Patient is seen this morning with family at the bedside reports that he is more lethargic today and difficult to arouse. Patient is lethargic although arousable on exam. Answering questions appropriately but is more fatigued. No reports of overnight issues, but RN this morning reports a dose of ativan was given around 3am this morning. Will decrease and taper the librium. Patient now having fevers and lower blood pressure. Recommend IV fluids and will get a chest xray, ua with reflex to culture, blood culture, tylenol for fever, and further labs. Will order covid and influenza testing as well. Check procalcitonin. 05/13/2022 Patient is seen today and has been started on IV rocephin and reported to have positive blood cultures and are growing kleb oxytoca. Recommend repeat blood cultures. Will consult ID and appreciate input and recommendations as there is a clinical suspicion for hospital acquired pneumonia. Will decrease the IV fluid rate and follow up with repeat labs. Will also add duoneb treatments and encouraged incentive spirometer use at least 10 times per hour while awake. Sputum culture ordered as well. Patient with low grade temps. Patient denies chest pain or shortness of breath. Patient does report some cough. Not eating as much but reports he did eat some breakfast which is improved from yesterday. 05/14/2022 Patient is seen today and continues on IV ceftriaxone and cultures showing klebsiella oxytoca. ID following and ct abdomen ordered to assess for possible abdominal source of infection due to elevated LFTs. Patient started on duoneb treatments although has been refusing. Needs constant encouragement on IS use. Sputum culture was ordered and continues to not be collected. Patient denies chest pain or shortness of breath. Awaiting repeat blood cultures. Recommend repeat labs in the am and will continue to monitor closely. 05/15/2022 Patient is seen today and abdominal ultrasound done with no acute process noted and suggestive with hepatic steatosis. Patient is on ceftriaxone and will continue. Patient is afebrile and denies chest pain or shortness of breath. Patient was up and able to shower yesterday but continues to mostly sleep. encouraged increased activity as tolerated. Repeat blood cultures are negative. Recommend repeat labs and follow up chest xray. Continue to encourage IS use. 05/16/2022 Patient is seen and evaluated today and continued on ceftriaxone with ID following. Cultures finalized with klebsiella oxytoca with sensitivities and patient remains afebrile. Off oxygen and maintaining oxygen saturations above 90%. Encouraged increased activity as tolerated and encouraged oral intake. Working on weaning librium and will taper off tomorrow. [facility] has now declined the patient and family feels they are unable to care for him recommending referrals to other facilities that can possibly accommodate for weakness. PT/OT following. Encouraged incentive spirometer use. Repeat blood cultures remain negative. 05/17/2022 Patient is seen in follow up today and was doing well however has now spiked some temps again and was continued on ceftriaxone and ID following requesting repeat chest xray, UA, and blood cultures. Encouraged the patient to continue using IS and increase activity as tolerated. Patient denies chest pain or shortness breath. Patient reports to eating with no reports of nausea or vomiting noted. Case management following and continues to search for an accepting facility as we still have no safe discharge home. Family continues to report they have no way of caring for him. 05/18/2022 Patient is seen in follow-up today with ID following and antibiotics have been transitioned to Unasyn while awaiting for repeat blood cultures. Patient did have 1 low-grade temp of 99.9 this morning although has been afebrile all day. Patient is denying chest pain or shortness of breath and is 93% on room air. Patient has been up and walking and working with physical therapy. Repeat labs this morning reveal a WBC of 7.29 hemoglobin is 13.3 BMP within normal limits and repeat urinalysis was negative. Need to discuss further with infectious disease about treatment plan moving forward. Case management continues to follow working on discharge planning although no safe discharge at this point and may require guardianship as there are no accepting ECF facilities and family continues to report they are unable to care for him at home. Review of systems: Constitutional: no reports of fatigue, fever, or chills Cardiovascular: No reports of chest pain or palpitations Respiratory: No reports of shortness of breath, reports cough GI: No reports of nausea, vomiting, or diarrhea : No reports of dysuria or retention Neurovascular: reports of weakness All medications have been reviewed PHYSICAL EXAMINATION: GENERAL: The patient is alert and oriented x2, with intermittent periods of confusion, thin built, elderly appearing male, more awake today HEENT: Pupils are round and equally reacting to light. EOMI. no scleral icterus. No conjunctival pallor. Normocephalic, atraumatic. No pharyngeal erythema. No thyromegaly. CARDIOVASCULAR: S1 and S2 muffled PULMONARY: diminished breath sounds bilaterally with some scattered rhonchi noted. ABDOMEN: soft. Nontender on exam. non-distended, normoactive bowel sounds. No palpable organomegaly. MUSCULOSKELETAL: No joint swelling or deformity. EXTREMITIES: No cyanosis, clubbing, or pedal edema. NEUROLOGICAL: Gross neurological examination did not reveal any focal deficits. Diffuse weakness SKIN: No rashes. Assessment: Acute alcohol withdrawal and early delirium tremens, resolved fevers, unknown etiology, possible hospital acquired pneumonia due to gram negative pathogen growing klebsiella oxytoca hepatic steatosis with elevated lfts. Continued ongoing nicotine dependence Thrombocytopenia most likely from chronic alcohol use, improving Acute rhabdomyolysis possibly due to alcohol, resolved Hyponatremia, hypovolemic from poor oral intake improved with IV fluids History of anxiety/depression Gait dysfunction GI prophylaxis DVT prophylaxis Full code Plan: Cultures have finalized klebsiella oxytoca with sensitivities, repeat blood cultures are negative, patient continued on Unasyn with ID following and considering oral medications on discharge although patient developed fevers yesterday and is now afebrile today and urinalysis is negative awaiting repeat blood cultures and close monitoring of vital signs. Encouraged incentive spirometer use and needs constant encouragement. Patient has not been using and laying in bed most of this admission Continue seroquel Monitor for acute alcohol withdrawal seizure Recommend repeat labs and will discuss with ID about treatment plan Encourage increased activity as tolerated. Family requesting other referrals to f as [facility] has now declined. Case management is following and so far no one is accepting. Unsafe discharge plan at this point and will be discussed further with case management and family The impression and plan of care has been dictated by Leticia Hardy, nurse practitioner as directed. Dr. Bonnie MD I have performed a history and examination and MDM of this patient, discussed the same with the dictator, and agree with the dictator's assessment and plan as written ,documented as a scribe. Based on total visit time, I have performed more than 50% of the visit. Any additional findings or plans will be noted. Objective - Vital Signs Vital signs: Vital Signs Temp 99.9 F H 05/18/22 07:19 Pulse 80 05/18/22 07:19 Resp 19 05/18/22 07:19 BP 131/79 05/18/22 07:19 Pulse Ox 90 L 05/18/22 07:19 FiO2 Intake & Output 05/17/22 05/18/22 05/18/22 18:59 06:59 18:59 Intake Total 700 1000 Output Total 7 300 Balance 693 1000 -300 Intake: Intake, IV Titration 700 Amount Ampicillin-Sulbactam 3 gm 100 In Sodium Chloride 0.9% 100 ml @ 200 mls/hr IVPB Q6HR [facility] Rx#:[id number] Sodium Chloride 0.9% 1, 600 000 ml @ 50 mls/hr IV . Q20H [facility] Rx#:[id number] Oral 1000 Output: Urine 7 300 Other: Voiding Method Toilet Toilet Toilet Urinal Urinal Urinal Diaper Diaper Diaper Incontinent Incontinent Incontinent # Voids 3 - Labs CBC & Chem 7: 05/18/22 06:29 05/18/22 06:29 Labs: Microbiology - Last 24 Hours (Table) 05/14/22 05:38 Blood Culture - Preliminary Blood No Growth after 96 hours 05/13/22 09:47 Blood Culture - Preliminary Blood No Growth after 96 hours
[2022-05-18] MEDS: QUEtiapine 25 MG TAB PO SCH (20:37)
[2022-05-19] MEDS: SODIUM CHLORIDE 0.9% 1,000 ML IV SCH ×2 (00:07→20:18)
[2022-05-19] MEDS: AMPICILLIN-SULBACTAM 3 GM in SODIUM CHLORIDE 0.9% 100 ML IVPB SCH ×4 (00:39→17:41)
--- NOTE | 2022-05-19 06:50 | XR ---
EXAMINATION TYPE: XR chest 1V portable DATE OF EXAM: 05/19/2022 CLINICAL HISTORY: Difficulty breathing progress study. TECHNIQUE: Single AP portable upright view of the chest is obtained. COMPARISON: Chest x-ray from 2 days earlier FINDINGS: Osseous structures are demineralized. Degenerative change bilateral glenohumeral joints ar e seen. Cardiac silhouette size is stable and upper limits of normal with atherosclerotic change aortic knob. Chronic increased markings bilaterally with some new increased left midlung opacity. No pleural effu mayte or pneumothorax seen bilaterally. IMPRESSION: Chronic changes with developing left midlung acute infiltrate thought present. Jeannie petersen advised.
[2022-05-19] MEDS: IPRATROPIUM-ALBUTEROL 3 ML NEB INHALATION SCH ×3 (07:22→19:05)
[2022-05-19] MEDS: MULTIVITAMINS, THERA 1 EACH TAB PO SCH (09:13)
[2022-05-19] MEDS: FOLIC ACID 1 MG TAB PO SCH (09:13)
[2022-05-19] MEDS: THIAMINE 100 MG TAB PO SCH ×2 (09:13→17:41)
[2022-05-19] MEDS: PANTOPRAZOLE 40 MG TABLET PO SCH (09:13)
[2022-05-19] MEDS: amLODIPine 2.5 MG TAB PO SCH (09:13)
[2022-05-19] MEDS: HEPARIN SODIUM,PORCINE/PF 5,000 UNIT/0.5 ML SYRINGE SQ SCH ×2 (09:24→20:17)
--- NOTE | 2022-05-19 16:31 | P.PN ---
Subjective Progress Note Date: 05/19/22 This is a 66-year-old male who was recently admitted with a past medical history of significant alcohol use and admitted with alcohol withdrawal and is being closely monitored. Patient also with features of rhabdomyolysis and is maintained on IV hydration. Patient continues on CIWA protocol and also con tinues with significant weakness. Case management following as physical therapy recommending ECF and patient along with family are agreeable. Patient is currently afebrile denies chest pain or shortness of breath. Patient's blood pressure mildly elevated recommend monitoring closely and will repeat labs. Patient denies nausea or vomiting and is tolerating oral intake. 05/06/2022 Patient is seen and evaluated in follow-up this morning continues to be confused and redirects easily maintained on CIWA protocol. Patient also continues on IV hydration and creatinine kinase is improved from 1401 on admission down to 802. Patient continues to require IV Ativan and will add oral Ativan and also Librium taper. Will add Seroquel at night as patient continues to have confusion needing redirection. Currently a sitter at the bedside for safety. Patient is afebrile and denies chest pain or shortness of breath. Patient is tolerating diet although has no teeth and has been changed to dysphagia ground diet. Potassium was 3.4 today and will replace and recommend repeat labs. Magnesium was 1.9 today. Liver functions are trending down. Case management is following as patient continues with weakness and recommend physical therapy evaluation daily and plan is for ECF. 05/07/2022 Patient is evaluated today resting in bed. He does have tremors noted with arms extended. Less confused today. He is able to hold a conversation. Labs today showing a sodium level of 134, potassium level 3.6, BUN 10, creatinine 0.48. Total bilirubini 2.0, liver enzymes stable. He continues on normal saline at 75 mls per hour. Will repeat sodium in the AM. He is requiring IV ativan about twice a day, seroquel at HS, and also he is on librium taper currently 25 mg PO TID. Blood pressure 147/85, heart rate 68, afebrile, 96% room air. Sitter no longer at bedside. Patient does not currently have accepting facility to ECF. Follow up on Monday when case management returns. 05/08/2022 Patient continues on IV ativan for acute alcohol withdrawal delirum tremens. He is also on librium, seroquel. No sitter at bedside. No acute event overnight. Mentation is improving. Sodium has improved to 135, potassium 3.6, magnesium 2.0. Continues on normal saline. Blood pressure 148/86. Increase activity level, encourage diet. Pending subacute rehab, having issues finding accepting facility. 05/09/2022 Patient today is doing well he is alert x 2-3. No acute events overnight, has not had sitter at the bedside. Tremors have resolved. He has not required IV ativan overnight. He does report increasing diet and has been eating and drinking well. He is afebrile, heart rate 75, blood pressure 106/72, 93% room air. Family is wanting evaluation for short term memory loss speech therapy has been consulted. Discussed clinical course and plan of care with family over the phone. There is no power of [place] attorney in place. Patient will need subacute rehab, daughter would like permanent placement. Requesting to speak with case management tomorrow regarding discharge planning. 05/10/2022 Patient is seen and evaluated in follow-up and undergoing speech therapy evaluation for cognition with family at the bedside. Patient continues on Librium taper and not requiring ativan per nursing. Case management following and continuing to work on an accepting ecf. PT working with the patient today for updated notes as patient continues with weakness. Patient is afebrile and denies chest pain or shortness of breath. No reports of nausea or vomiting and tolerating diet. Will follow up with case management. 05/11/2022 Patient is seen and evaluated in follow-up this morning in case management following [facility] has accepted the patient and currently awaiting insurance authorization which was submitted today. Possible discharge in 24 hours. Patient is continued on Librium taper and as needed CIWA protocol although has not been requiring any Ativan. Patient continues on gentle IV hydration and will continue. Encouraged oral intake and increased activity as tolerated. Patient denies chest pain or shortness of breath. Patient is afebrile. Patient denies nausea or vomiting and has been tolerating dysphagia diet. 05/12/2022 Patient is seen this morning with family at the bedside reports that he is more lethargic today and difficult to arouse. Patient is lethargic although arousable on exam. Answering questions appropriately but is more fatigued. No reports of overnight issues, but RN this morning reports a dose of ativan was given around 3am this morning. Will decrease and taper the librium. Patient now having fevers and lower blood pressure. Recommend IV fluids and will get a chest xray, ua with reflex to culture, blood culture, tylenol for fever, and further labs. Will order covid and influenza testing as well. Check procalcitonin. 05/13/2022 Patient is seen today and has been started on IV rocephin and reported to have positive blood cultures and are growing kleb oxytoca. Recommend repeat blood cultures. Will consult ID and appreciate input and recommendations as there is a clinical suspicion for hospital acquired pneumonia. Will decrease the IV fluid rate and follow up with repeat labs. Will also add duoneb treatments and encouraged incentive spirometer use at least 10 times per hour while awake. Sputum culture ordered as well. Patient with low grade temps. Patient denies chest pain or shortness of breath. Patient does report some cough. Not eating as much but reports he did eat some breakfast which is improved from yesterday. 05/14/2022 Patient is seen today and continues on IV ceftriaxone and cultures showing klebsiella oxytoca. ID following and ct abdomen ordered to assess for possible abdominal source of infection due to elevated LFTs. Patient started on duoneb treatments although has been refusing. Needs constant encouragement on IS use. Sputum culture was ordered and continues to not be collected. Patient denies chest pain or shortness of breath. Awaiting repeat blood cultures. Recommend repeat labs in the am and will continue to monitor closely. 05/15/2022 Patient is seen today and abdominal ultrasound done with no acute process noted and suggestive with hepatic steatosis. Patient is on ceftriaxone and will continue. Patient is afebrile and denies chest pain or shortness of breath. Patient was up and able to shower yesterday but continues to mostly sleep. encouraged increased activity as tolerated. Repeat blood cultures are negative. Recommend repeat labs and follow up chest xray. Continue to encourage IS use. 05/16/2022 Patient is seen and evaluated today and continued on ceftriaxone with ID following. Cultures finalized with klebsiella oxytoca with sensitivities and patient remains afebrile. Off oxygen and maintaining oxygen saturations above 90%. Encouraged increased activity as tolerated and encouraged oral intake. Working on weaning librium and will taper off tomorrow. [facility] has now declined the patient and family feels they are unable to care for him recommending referrals to other facilities that can possibly accommodate for weakness. PT/OT following. Encouraged incentive spirometer use. Repeat blood cultures remain negative. 05/17/2022 Patient is seen in follow up today and was doing well however has now spiked some temps again and was continued on ceftriaxone and ID following requesting repeat chest xray, UA, and blood cultures. Encouraged the patient to continue using IS and increase activity as tolerated. Patient denies chest pain or shortness breath. Patient reports to eating with no reports of nausea or vomiting noted. Case management following and continues to search for an accepting facility as we still have no safe discharge home. Family continues to report they have no way of caring for him. 05/18/2022 Patient is seen in follow-up today with ID following and antibiotics have been transitioned to Unasyn while awaiting for repeat blood cultures. Patient did have 1 low-grade temp of 99.9 this morning although has been afebrile all day. Patient is denying chest pain or shortness of breath and is 93% on room air. Patient has been up and walking and working with physical therapy. Repeat labs this morning reveal a WBC of 7.29 hemoglobin is 13.3 BMP within normal limits and repeat urinalysis was negative. Need to discuss further with infectious disease about treatment plan moving forward. Case management continues to follow working on discharge planning although no safe discharge at this point and may require guardianship as there are no accepting ECF facilities and family continues to report they are unable to care for him at home. 05/19/2022 Patient is seen and evaluated in follow-up today no complaints of chest pain or shortness of breath. Chest x-ray continues to show left lung infiltrate and patient has been refusing breathing treatments. Patient being followed by ID and cultures remain negative and patient is continued on IV Unasyn and will continue. Case management also following and there is a court hearing tomorrow for guardianship from the family. There is one potential ECF possibly willing to accept although there are complications due to insurance in case management is following working on discharge planning. Patient is afebrile. Patient has been working with physical therapy and compliant with that. Patient needs to continue with incentive spirometer and discussed again with the patient about the importance of breathing treatments and continuing to use the incentive spirometer throughout the day. Patient needs to increase activity as tolerated and get up out of bed more often. Review of systems: Constitutional: no reports of fatigue, fever, or chills Cardiovascular: No reports of chest pain or palpitations Respiratory: No reports of shortness of breath, reports cough GI: No reports of nausea, vomiting, or diarrhea : No reports of dysuria or retention Neurovascular: reports of weakness All medications have been reviewed PHYSICAL EXAMINATION: GENERAL: The patient is alert and oriented x2, with intermittent periods of confusion, thin built, elderly appearing male HEENT: Pupils are round and equally reacting to light. EOMI. no scleral icterus. No conjunctival pallor. Normocephalic, atraumatic. No pharyngeal erythema. No thyromegaly. CARDIOVASCULAR: S1 and S2 muffled PULMONARY: diminished breath sounds bilaterally with some scattered rhonchi noted. ABDOMEN: soft. Nontender on exam. non-distended, normoactive bowel sounds. No palpable organomegaly. MUSCULOSKELETAL: No joint swelling or deformity. EXTREMITIES: No cyanosis, clubbing, or pedal edema. NEUROLOGICAL: Gross neurological examination did not reveal any focal deficits. Diffuse weakness SKIN: No rashes. Assessment: Acute alcohol withdrawal and early delirium tremens, resolved fevers, unknown etiology, possible hospital acquired pneumonia due to gram negative pathogen growing klebsiella oxytoca, concern for aspiration pneumonia as well hepatic steatosis with elevated lfts. Continued ongoing nicotine dependence Thrombocytopenia most likely from chronic alcohol use, improving Acute rhabdomyolysis possibly due to alcohol, resolved Hyponatremia, hypovolemic from poor oral intake improved with IV fluids History of anxiety/depression Gait dysfunction GI prophylaxis DVT prophylaxis Full code Plan: Cultures have finalized klebsiella oxytoca with sensitivities, repeat blood cultures are negative, patient continued on Unasyn with ID following and considering oral medications on discharge although patient developed fevers yest erday and is now afebrile today and urinalysis is negative, repeat blood cultures remain negative as well and will continue with Unasyn and transitioned oral Augmentin on discharge Encouraged incentive spirometer use and needs constant encouragement. Patient has not been using and laying in bed most of this admission. Encouraged increased activity and strongly encourage the use of DuoNeb treatments as patient has been refusing Continue seroquel Encourage increased activity as tolerated. Case management following and working on discharge planning as there is apparently a court hearing for guardianship from the family tomorrow and there is possibly one ECF but is willing to accept although there are some insurance issues and will follow up with case management in the a.m. Hopeful for discharge within the next 24-48 hours. The impression and plan of care has been dictated by Leticia Hardy, nurse practitioner as directed. Dr. Bonnie MD I have performed a history and examination and MDM of this patient, discussed the same with the dictator, and agree with the dictator's assessment and plan as written ,documented as a scribe. Based on total visit time, I have performed more than 50% of the visit. Any additional findings or plans will be noted. Objective - Vital Signs Vital signs: Vital Signs Temp 97.7 F 05/19/22 05:00 Pulse 62 05/19/22 05:00 Resp 16 05/19/22 05:00 BP 160/72 05/19/22 05:00 Pulse Ox 95 05/19/22 05:00 FiO2 Intake & Output 05/18/22 05/19/22 05/19/22 18:59 06:59 18:59 Intake Total 800 940 Output Total 300 300 Balance 500 640 Intake: Intake, IV Titration 800 700 Amount Ampicillin-Sulbactam 3 gm 200 100 In Sodium Chloride 0.9% 100 ml @ 200 mls/hr IVPB Q6HR [facility] Rx#:[id number] Sodium Chloride 0.9% 1, 600 600 000 ml @ 50 mls/hr IV . Q20H [facility] Rx#:[id number] Oral 240 Output: Urine 300 300 Other: Voiding Method Toilet Toilet Urinal Urinal Diaper Diaper Incontinent Incontinent # Voids 2 4 # Bowel Movements 1 - Labs CBC & Chem 7: 05/18/22 06:29 05/18/22 06:29 Labs: Abnormal Lab Results - Last 24 Hours (Table) 05/18/22 05/18/22 05/18/22 Range/Units 06:29 06:29 06:29 RBC 4.22 L (4.40-5.60) X 10*6/uL Hct 39.4 L (39.6-50.0) % Immature Gran # 0.06 H (0.00-0.04) X 10*3/uL Lymphocytes # 0.86 L (0.90-5.00) X 10*3/uL Calcium 8.4 L (8.7-10.3) mg/dL C-Reactive Protein 7.00 H (0.00-0.80) mg/dL Total Protein 6.0 L (6.2-8.2) g/dL Albumin 3.3 L (3.8-4.9) g/dL Albumin/Globulin Ratio 1.22 L (1.60-3.17) g/dL Procalcitonin 0.36 H (0.02-0.09) ng/mL Microbiology - Last 24 Hours (Table) 05/14/22 05:38 Blood Culture - Preliminary Blood No Growth after 120 hours 05/17/22 12:01 Blood Culture - Preliminary Blood No Growth after 24 hours 05/13/22 09:47 Blood Culture - Preliminary Blood No Growth after 120 hours
[2022-05-19] MEDS: QUEtiapine 25 MG TAB PO SCH (20:17)
[2022-05-19] MEDS: LORazepam 1 MG TAB PO PRN (20:21)
[2022-05-20] MEDS: AMPICILLIN-SULBACTAM 3 GM in SODIUM CHLORIDE 0.9% 100 ML IVPB SCH ×5 (01:23→23:46)
[2022-05-20] MEDS ORDERED: LORazepam 1 MG TAB PO STA (02:08)
[2022-05-20] MEDS: IPRATROPIUM-ALBUTEROL 3 ML NEB INHALATION SCH ×3 (07:38→20:55)
[2022-05-20] MEDS: HEPARIN SODIUM,PORCINE/PF 5,000 UNIT/0.5 ML SYRINGE SQ SCH ×2 (07:40→20:57)
[2022-05-20] MEDS: amLODIPine 2.5 MG TAB PO SCH (07:40)
[2022-05-20] MEDS: PANTOPRAZOLE 40 MG TABLET PO SCH (07:40)
[2022-05-20] MEDS: THIAMINE 100 MG TAB PO SCH ×2 (07:40→16:28)
[2022-05-20] MEDS: MULTIVITAMINS, THERA 1 EACH TAB PO SCH (12:16)
[2022-05-20] MEDS: FOLIC ACID 1 MG TAB PO SCH (12:16)
--- NOTE | 2022-05-20 15:03 | P.DS ---
Providers Date of admission: 05/04/22 13:58 Expected date of discharge: 05/20/22 Attending physician: Linda Underwood Consults: 05/13/22 14:15 Consult Physician Urgent Consulting Provider: Rupert Almonte Consult Reason/Comments: positive blood cultures kleb oxy after one week hospitalization ? pna Do you want consulting provider notified?: Yes Primary care physician: Stated None Hospital Course: Final diagnosis Acute alcohol withdrawal and early delirium tremens, resolved fevers, unknown etiology, possible hospital acquired pneumonia due to gram negative pathogen growing klebsiella oxytoca, concern for aspiration pneumonia as well hepatic steatosis with elevated lfts. Continued ongoing nicotine dependence Thrombocytopenia most likely from chronic alcohol use, improving Acute rhabdomyolysis possibly due to alcohol, resolved Hyponatremia, hypovolemic from poor oral intake improved with IV fluids History of anxiety/depression Gait dysfunction GI prophylaxis DVT prophylaxis Full code Discharge disposition Patient is being discharged in a stable condition with guarded prognosis to [facility]. Patient will follow-up with PCP in the outpatient setting upon discharge. Patient is to continue with oral Augmentin twice daily for the next 10 days to complete the course. Total time taken is greater than 35 minutes. Hospital course This is a 66-year-old male who was recently admitted with altered mental status, EtOH along with acute rhabdomyolysis and alcohol withdrawal and being closely monitored. Patient was maintained on CIWA protocol along with Librium and has been tapered off and occasionally has Ativan oral as needed for increased anxiety. Patient has been here for over 2 weeks and subsequently developed questionable aspiration pneumonia versus hospital-acquired with fevers and left lower lung infiltrate and has been being closely followed by infectious disease. Patient was started on ceftriaxone and cultures were negative and patient developed fevers last week and switched antibiotics to Unasyn and cultures again remained negative. Patient was refusing breathing treatments and incentive spirometer use although has been compliant with this and recommend continue with DuoNeb's as scheduled along with continued incentive spirometer use. Patient is afebrile and off oxygen and denies any chest pain or shortness of breath. Family apparently has guardianship over the patient and working on ECF as patient continues with weakness. Awaiting response from [facility] for possible bed availability today. Patient is medically stable and ready for discharge. Currently no reports of chest pain, shortness of breath, or palpitations. Patient is afebrile. No reports of nausea or vomiting and patient is tolerating diet. Recommend continue with dysphasia 2 crown diet and aspiration precautions as patient also has multiple dental caries and missing teeth. Patient will be discharged to ECF today. Guarded prognosis. Physical exam: Gen: This is a 66-year-old male awake, alert and oriented 2-3. Well-developed, well-nourished. HEENT: Head is atraumatic, normocephalic. Pupils equal, round. Sclerae is anicteric. NECK: Supple. No JVD. No lymphadenopathy. No thyromegaly. LUNGS: Clear to auscultation. No wheezes or rhonchi. No intercostal retractions. HEART: Regular rate and rhythm. No murmur. ABDOMEN: Soft. Bowel sounds are present. No masses. No tenderness. EXTREMITIES: No pedal edema. No calf tenderness. NEUROLOGICAL: Patient is awake, alert and oriented x3. Cranial nerves 2 through 12 are grossly intact. Please refer to medication reconciliation sheet for a list of medications. The impression and plan of care has been dictated by Leticia Hardy, Nurse Practitioner as directed. Dr. Bonnie MD I have performed a history and examination and MDM of this patient, discussed the same with the dictator, and agree with the dictator's assessment and plan as written ,documented as a scribe. Based on total visit time, I have performed more than 50% of the visit. Patient Condition at Discharge: Fair Plan - Discharge Summary Discharge Rx Participant: No New Discharge Prescriptions: New LORazepam [Ativan] 1 mg PO Q8HR PRN #4 tab PRN Reason: Anxiety Amoxic-Pot Clav 875-125Mg [Augmentin 875-125] 1 tab PO Q12HR 10 Days #20 tab Ipratropium-Albuterol Nebulize [Duoneb 0.5 mg-3 mg/3 ml Soln] 3 ml INHALATION RT-TID each Pantoprazole [Protonix] 40 mg PO AC-BRKFST tab Thiamine [Vitamin B-1] 100 mg PO BID-W/MEALS tab Folic Acid 1 mg PO DAILY@1200 tab Multivitamins, Thera [Multivitamin (formulary)] 1 each PO DAILY@1200 tab amLODIPine [Norvasc] 2.5 mg PO DAILY tab QUEtiapine [SEROquel] 25 mg PO HS tab Acetaminophen Tab [Tylenol] 650 mg PO Q6HR PRN tab PRN Reason: Fever And/ Or Pain Discharge Medication List Acetaminophen Tab [Tylenol] 650 mg PO Q6HR PRN tab 05/20/22 [Rx] Amoxic-Pot Clav 875-125Mg [Augmentin 875-125] 1 tab PO Q12HR 10 Days #20 tab 05/20/22 [Rx] Folic Acid 1 mg PO DAILY@1200 tab 05/20/22 [Rx] Ipratropium-Albuterol Nebulize [Duoneb 0.5 mg-3 mg/3 ml Soln] 3 ml INHALATION RT-TID each 05/20/22 [Rx] LORazepam [Ativan] 1 mg PO Q8HR PRN #4 tab 05/20/22 [Rx] Multivitamins, Thera [Multivitamin (formulary)] 1 each PO DAILY@1200 tab 05/20/22 [Rx] Pantoprazole [Protonix] 40 mg PO AC-BRKFST tab 05/20/22 [Rx] QUEtiapine [SEROquel] 25 mg PO HS tab 05/20/22 [Rx] Thiamine [Vitamin B-1] 100 mg PO BID-W/MEALS tab 05/20/22 [Rx] amLODIPine [Norvasc] 2.5 mg PO DAILY tab 05/20/22 [Rx] Follow up Appointment(s)/Referral(s): None,Stated [Primary Care Provider] - 1-2 days Activity/Diet/Wound Care/Special Instructions: clothes/shoes in locker #19 Patient will be going to [facility] Activity as tolerated Continue with dysphagia 2 ground diet and aspiration precautions with head of the bed elevated while eating or sitting up with all meals Continue with DuoNeb treatments 3 times a day and when necessary Encourage incentive spirometer use at least 10 times every hour while awake Continue Augmentin twice daily for the next 10 days to complete the course Follow-up with primary care provider on discharge Continue to encourage complete alcohol abstinence Discharge/Stand Alone Forms: AA Meetings [place] [facility], Community Resources, Inp Substance Abuse Facilities, Personal Police Officer Discharge Disposition: TRANSFER TO [facility]/F
[2022-05-20] MEDS: LORazepam 1 MG TAB PO PRN (16:28)
[2022-05-20] MEDS: SODIUM CHLORIDE 0.9% 1,000 ML IV SCH (17:19)
[2022-05-20] MEDS: QUEtiapine 25 MG TAB PO SCH (20:57)
--- NOTE | 2022-05-20 22:24 | P.PN ---
Subjective Progress Note Date: 05/18/22 Principal diagnosis: Klebsiella bacteremia Patient is a 66-year-old male with a past medical history significant for alcoholism, presented to hospital for evaluation of mental status changes and the patient was being treated for possible DTs subsequently he did spike a fever and did have a positive blood culture with Klebsiella concern for possible pneumonia. On today's evaluation that is 05/18/2022, the patient is afebrile today, patient is more awake and alert, the patient is breathing comfortably on room air denies any chest pain or shortness of breath he did have some, not bringing up any sputum no abdominal pain or diarrhea Objective - Vital Signs Vital signs: Vital Signs Temp 98.5 F 05/18/22 11:31 Pulse 70 05/18/22 11:31 Resp 18 05/18/22 11:31 BP 106/65 05/18/22 11:31 Pulse Ox 93 L 05/18/22 11:31 FiO2 Intake & Output 05/17/22 05/18/22 05/18/22 18:59 06:59 18:59 Intake Total 700 1000 Output Total 7 300 Balance 693 1000 -300 Intake: Intake, IV Titration 700 Amount Ampicillin-Sulbactam 3 gm 100 In Sodium Chloride 0.9% 100 ml @ 200 mls/hr IVPB Q6HR [facility] Rx#:[id number] Sodium Chloride 0.9% 1, 600 000 ml @ 50 mls/hr IV . Q20H [facility] Rx#:[id number] Oral 1000 Output: Urine 7 300 Other: Voiding Method Toilet Toilet Toilet Urinal Urinal Urinal Diaper Diaper Diaper Incontinent Incontinent Incontinent # Voids 3 # Bowel Movements 1 - Exam GENERAL DESCRIPTION: Middle-age male lying in bed in no distress RESPIRATORY SYSTEM: Unlabored breathing , decreased breath sounds at bases HEART: S1 S2 regular rate and rhythm , ABDOMEN: Soft , no tenderness EXTREMITIES: No edema feet - Labs CBC & Chem 7: 05/18/22 06:29 05/18/22 06:29 Labs: Abnormal Lab Results - Last 24 Hours (Table) 05/18/22 05/18/22 Range/Units 06:29 06:29 RBC 4.22 L (4.40-5.60) X 10*6/uL Hct 39.4 L (39.6-50.0) % Immature Gran # 0.06 H (0.00-0.04) X 10*3/uL Lymphocytes # 0.86 L (0.90-5.00) X 10*3/uL Calcium 8.4 L (8.7-10.3) mg/dL C-Reactive Protein 7.00 H (0.00-0.80) mg/dL Total Protein 6.0 L (6.2-8.2) g/dL Albumin 3.3 L (3.8-4.9) g/dL Albumin/Globulin Ratio 1.22 L (1.60-3.17) g/dL Microbiology - Last 24 Hours (Table) 05/13/22 09:47 Blood Culture - Preliminary Blood No Growth after 120 hours 05/14/22 05:38 Blood Culture - Preliminary Blood No Growth after 96 hours Assessment and Plan (1) Bacteremia Current Visit: Yes Status: Acute Code(s): R78.81 - BACTEREMIA SNOMED Code(s): 7325763 Plan: 1patient with a Klebsiella bacteremia could be related to the left lower lobe pneumonia this patient has been in the hospital for the last 9 days and treated for possible DTs, patient did have a negative UA abdominal soft clinical examination and no evidence of any joint swelling or cellulitis however the patient did have a elevated liver enzymes and will need to rule out intra-a bdominal source 2-blood cultures has been repeated document clearance of bacteremia 3- ultrasound of the liver and gallbladder area, did not show any gallbladder abnormality possible hepatocellular disease 4-patient with a new fever blood cultures repeated which is currently pending repeat chest x-ray concerning for possible pneumonia 5-patient to continue with Unasyn and monitor clinical course closely Time with Patient: Less than 30
--- NOTE | 2022-05-20 22:25 | P.PN ---
Subjective Progress Note Date: 05/19/22 Principal diagnosis: Klebsiella bacteremia Patient is a 66-year-old male with a past medical history significant for alcoholism, presented to hospital for evaluation of mental status changes and the patient was being treated for possible DTs subsequently he did spike a fever and did have a positive blood culture with Klebsiella concern for possible pneumonia. On today's evaluation that is 05/19/2022, the patient remains to be afebrile , the patient is breathing comfortably on room air denies any chest pain or shortness of breath he did have some, not bringing up any sputum no abdominal pain or diarrhea Objective - Vital Signs Vital signs: Vital Signs Temp 97.8 F 05/19/22 11:35 Pulse 80 05/19/22 11:35 Resp 16 05/19/22 11:35 BP 117/75 05/19/22 11:35 Pulse Ox 92 L 05/19/22 11:35 FiO2 Intake & Output 05/18/22 05/19/22 05/19/22 18:59 06:59 18:59 Intake Total 800 940 Output Total 300 300 Balance 500 640 Weight 72.575 kg Intake: Intake, IV Titration 800 700 Amount Ampicillin-Sulbactam 3 gm 200 100 In Sodium Chloride 0.9% 100 ml @ 200 mls/hr IVPB Q6HR [facility] Rx#:[id number] Sodium Chloride 0.9% 1, 600 600 000 ml @ 50 mls/hr IV . Q20H [facility] Rx#:[id number] Oral 240 Output: Urine 300 300 Other: Voiding Method Toilet Toilet Urinal Urinal Diaper Diaper Incontinent Incontinent # Voids 2 4 # Bowel Movements 1 - Exam GENERAL DESCRIPTION: Middle-age male lying in bed in no distress RESPIRATORY SYSTEM: Unlabored breathing , decreased breath sounds at bases HEART: S1 S2 regular rate and rhythm , ABDOMEN: Soft , no tenderness EXTREMITIES: No edema feet - Labs CBC & Chem 7: 05/18/22 06:29 05/18/22 06:29 Labs: Abnormal Lab Results - Last 24 Hours (Table) 05/18/22 Range/Units 06:29 Procalcitonin 0.36 H (0.02-0.09) ng/mL Microbiology - Last 24 Hours (Table) 05/17/22 12:01 Blood Culture - Preliminary Blood No Growth after 48 hours 05/13/22 09:47 Blood Culture - Final Blood No Growth after 144 hours 05/14/22 05:38 Blood Culture - Preliminary Blood No Growth after 120 hours Assessment and Plan (1) Bacteremia Current Visit: Yes Status: Acute Code(s): R78.81 - BACTEREMIA SNOMED Code(s): 0951108 Plan: 1patient with a Klebsiella bacteremia could be related to the left lower lobe pneumonia this patient has been in the hospital for the last 9 days and treated for possible DTs, patient did have a negative UA abdominal soft clinical examination and no evidence of any joint swelling or cellulitis however the patient did have a elevated liver enzymes and will need to rule out intra-abdominal source 2-blood cultures has been repeated document clearance of bacteremia 3- ultrasound of the liver and gallbladder area, did not show any gallbladder abnormality possible hepatocellular disease 4-patient with a new fever blood cultures repeated which is currently pending repeat chest x-ray concerning for possible pneumonia 5-patient has shown clinical improvement fever has resolved patient to continue with Unasyn and monitor clinical course closely Time with Patient: Less than 30
--- NOTE | 2022-05-20 22:26 | P.PN ---
Subjective Progress Note Date: 05/20/22 Principal diagnosis: Klebsiella bacteremia Patient is a 66-year-old male with a past medical history significant for alcoholism, presented to hospital for evaluation of mental status changes and the patient was being treated for possible DTs subsequently he did spike a fever and did have a positive blood culture with Klebsiella concern for possible pneumonia. On today's evaluation that is 05/20/2022, the patient continues to be afebrile , the patient is breathing comfortably on room air , the patient denies any chest pain or shortness of breath he did have some cough but not bringing up any sputum no abdominal pain or diarrhea Objective - Vital Signs Vital signs: Vital Signs Temp 97.1 F L 05/20/22 05:00 Pulse 72 05/20/22 12:23 Resp 18 05/20/22 05:00 BP 114/69 05/20/22 05:00 Pulse Ox 96 05/20/22 07:39 FiO2 Intake & Output 05/19/22 05/20/22 05/20/22 18:59 06:59 18:59 Intake Total 700 940 Output Total 900 Balance 700 40 Weight 72.575 kg Intake: Intake, IV Titration 700 700 Amount Ampicillin-Sulbactam 3 gm 100 100 In Sodium Chloride 0.9% 100 ml @ 200 mls/hr IVPB Q6HR [facility] Rx#:[id number] Sodium Chloride 0.9% 1, 600 600 000 ml @ 50 mls/hr IV . Q20H [facility] Rx#:[id number] Oral 240 Output: Urine 900 Other: Voiding Method Toilet Toilet Toilet Urinal Urinal Urinal Diaper Diaper Diaper Incontinent Incontinent Incontinent # Voids 1 4 # Bowel Movements 1 2 - Exam GENERAL DESCRIPTION: Middle-age male lying in bed in no distress RESPIRATORY SYSTEM: Unlabored breathing , decreased breath sounds at bases HEART: S1 S2 regular rate and rhythm , ABDOMEN: Soft , no tenderness EXTREMITIES: No edema feet - Labs CBC & Chem 7: 05/18/22 06:29 05/18/22 06:29 Labs: Microbiology - Last 24 Hours (Table) 05/14/22 05:38 Blood Culture - Final Blood No Growth after 144 hours 05/17/22 12:01 Blood Culture - Preliminary Blood No Growth after 48 hours 05/13/22 09:47 Blood Culture - Final Blood No Growth after 144 hours Assessment and Plan (1) Bacteremia Current Visit: Yes Status: Acute Code(s): R78.81 - BACTEREMIA SNOMED Code(s): 0690111 Plan: 1patient with a Klebsiella bacteremia could be related to the left lower lobe pneumonia this patient has been in the hospital for the last 9 days and treated for possible DTs, patient did have a negative UA abdominal soft clinical examination and no evidence of any joint swelling or cellulitis however the patient did have a elevated liver enzymes and will need to rule out intra- abdominal source 2-blood cultures has been repeated document clearance of bacteremia 3- ultrasound of the liver and gallbladder area, did not show any gallbladder abnormality possible hepatocellular disease 4-patient with a new fever blood cultures repeated which is currently pending repeat chest x-ray concerning for possible pneumonia 5-patient has shown clinical improvement fever has resolved patient to continue with Unasyn and plan to finish therapy with oral Augmentin discuss with the TACTICAL INTELLIGENCE OFFICER for admitting team Time with Patient: Less than 30
[2022-05-21] MEDS: AMPICILLIN-SULBACTAM 3 GM in SODIUM CHLORIDE 0.9% 100 ML IVPB SCH ×4 (05:40→23:45)
[2022-05-21] MEDS: IPRATROPIUM-ALBUTEROL 3 ML NEB INHALATION SCH ×3 (07:39→19:18)
[2022-05-21] MEDS: PANTOPRAZOLE 40 MG TABLET PO SCH (08:12)
[2022-05-21] MEDS: amLODIPine 2.5 MG TAB PO SCH (08:12)
[2022-05-21] MEDS: HEPARIN SODIUM,PORCINE/PF 5,000 UNIT/0.5 ML SYRINGE SQ SCH ×2 (08:12→20:14)
[2022-05-21] MEDS: THIAMINE 100 MG TAB PO SCH ×2 (08:13→16:22)
--- NOTE | 2022-05-21 12:57 | P.PN ---
Subjective Progress Note Date: 05/21/22 Patient is evaluated today on the medical floor. Follow up with [facility] states that they cannot accept patient until Monday. No acute events overnight. Most recent labs showing white count 7.29, sodium 137, CRP 6.0 and procal 0.36. Repeat urine on the also negative. Vitals showing temperature 97.9, heart rate 68, blood pressure 132/75, 96% room air. Review of Systems Constitutional: Denied any fatigue denied any fever. Cardio vascular: denied any chest pain, palpitations Gastrointestinal: denied any nausea, vomiting, diarrhea Pulmonary: Denied any shortness of breath cough Neurologic denied any new focal deficits All inpatient medications were reviewed and appropriate changes in these me dications as dictated in the interval history and assessment and plan. Gen: This is a 66-year-old male awake, alert and oriented 2-3. Well-developed, well-nourished. HEENT: Head is atraumatic, normocephalic. Pupils equal, round. Sclerae is anicteric. NECK: Supple. No JVD. No lymphadenopathy. No thyromegaly. LUNGS: Clear to auscultation. No wheezes or rhonchi. No intercostal retractions. HEART: Regular rate and rhythm. No murmur. ABDOMEN: Soft. Bowel sounds are present. No masses. No tenderness. EXTREMITIES: No pedal edema. No calf tenderness. NEUROLOGICAL: Patient is awake, alert and oriented x3. Cranial nerves 2 through 12 are grossly intact. Please refer to medication reconciliation sheet for a list of medications. Assessment and Plan Acute alcohol withdrawal and early delirium tremens, resolved fevers, unknown etiology, possible hospital acquired pneumonia due to gram nega tive pathogen growing klebsiella oxytoca, concern for aspiration pneumonia as well hepatic steatosis with elevated lfts. Continued ongoing nicotine dependence Thrombocytopenia most likely from chronic alcohol use, improving Acute rhabdomyolysis possibly due to alcohol, resolved Hyponatremia, hypovolemic, resolved History of anxiety/depression Gait dysfunction GI prophylaxis DVT prophylaxis Full code The impression and plan of care has been dictated by Dulce Amos, Nurse Practitioner as directed. Dr. Bonnie MD I have performed a history and physical examination and medical decision making of this patient, discussed the same with the dictator, and agree with the dic tators assessment and plan as written, documented as a scribe. Based on total visit time, I have performed more than 50% of this visit. Objective - Vital Signs Vital signs: Vital Signs Temp 97.9 F 05/21/22 08:11 Pulse 68 05/21/22 11:57 Resp 18 05/21/22 08:11 BP 132/75 05/21/22 08:11 Pulse Ox 96 05/21/22 08:11 FiO2 Intake & Output 05/20/22 05/21/22 05/21/22 18:59 06:59 18:59 Intake Total 200 680 Balance 200 680 Intake: Intake, IV Titration 200 200 Amount Ampicillin-Sulbactam 3 gm 200 200 In Sodium Chloride 0.9% 100 ml @ 200 mls/hr IVPB Q6HR [facility] Rx#:[id number] Oral 480 Other: Voiding Method Toilet Toilet Toilet Urinal Urinal Diaper Diaper Incontinent Incontinent # Voids 4 3 2 - Labs CBC & Chem 7: 05/18/22 06:29 05/18/22 06:29 Labs: Microbiology - Last 24 Hours (Table) 05/17/22 12:01 Blood Culture - Preliminary Blood No Growth after 72 hours Assessment and Plan Time with Patient: Less than 30
[2022-05-21] MEDS: FOLIC ACID 1 MG TAB PO SCH (13:34)
[2022-05-21] MEDS: MULTIVITAMINS, THERA 1 EACH TAB PO SCH (13:34)
--- NOTE | 2022-05-21 15:30 | P.PN ---
Subjective Progress Note Date: 05/21/22 Principal diagnosis: Klebsiella bacteremia Patient is a 66-year-old male with a past medical history significant for alcoholism, presented to hospital for evaluation of mental status changes and the patient was being treated for possible DTs subsequently he did spike a fever and did have a positive blood culture with Klebsiella concern for possible pneumonia. On today's evaluation that is 05/21/2022, the patient remains to be afebrile , the patient is breathing comfortably on room air , the patient denies any chest pain or shortness of breath, the patient denies having any worsening cough or sputum production abdominal pain or diarrhea Objective - Vital Signs Vital signs: Vital Signs Temp 97.9 F 05/21/22 08:11 Pulse 64 05/21/22 12:08 Resp 18 05/21/22 08:11 BP 132/75 05/21/22 08:11 Pulse Ox 96 05/21/22 08:11 FiO2 Intake & Output 05/20/22 05/21/22 05/21/22 18:59 06:59 18:59 Intake Total 200 680 Balance 200 680 Intake: Intake, IV Titration 200 200 Amount Ampicillin-Sulbactam 3 gm 200 200 In Sodium Chloride 0.9% 100 ml @ 200 mls/hr IVPB Q6HR [facility] Rx#:[id number] Oral 480 Other: Voiding Method Toilet Toilet Toilet Urinal Urinal Diaper Diaper Incontinent Incontinent # Voids 4 3 2 - Exam GENERAL DESCRIPTION: Middle-age male lying in bed in no distress RESPIRATORY SYSTEM: Unlabored breathing , decreased breath sounds at bases HEART: S1 S2 regular rate and rhythm , ABDOMEN: Soft , no tenderness EXTREMITIES: No edema feet - Labs CBC & Chem 7: 05/18/22 06:29 05/18/22 06:29 Labs: Microbiology - Last 24 Hours (Table) 05/17/22 12:01 Blood Culture - Preliminary Blood No Growth after 96 hours Assessment and Plan (1) Bacteremia Current Visit: Yes Status: Acute Code(s): R78.81 - BACTEREMIA SNOMED Code(s): 0576643 Plan: 1patient with a Klebsiella bacteremia could be related to the left lower lobe pneumonia this patient has been in the hospital for the last 9 days and treated for possible DTs, patient did have a negative UA abdominal soft clinical examination and no evidence of any joint swelling or cellulitis however the patient did have a elevated liver enzymes and will need to rule out intra- abdominal source 2-blood cultures has been repeated which has been negative so far 3- ultrasound of the liver and gallbladder area, did not show any gallbladder abnormality possible hepatocellular disease 4-patient with a new fever blood cultures repeated which is currently pending repeat chest x-ray concerning for possible pneumonia 5-patient has shown clinical improvement fever has resolved patient currently be treated with Unasyn with the plan to finish therapy with oral Augmentin Time with Patient: Less than 30
[2022-05-21] MEDS: LORazepam 1 MG TAB PO PRN (16:22)
[2022-05-21] MEDS: QUEtiapine 25 MG TAB PO SCH (20:14)
[2022-05-22] MEDS: AMPICILLIN-SULBACTAM 3 GM in SODIUM CHLORIDE 0.9% 100 ML IVPB SCH ×3 (05:49→18:23)
[2022-05-22] MEDS: IPRATROPIUM-ALBUTEROL 3 ML NEB INHALATION SCH ×3 (08:01→19:02)
[2022-05-22] MEDS: HEPARIN SODIUM,PORCINE/PF 5,000 UNIT/0.5 ML SYRINGE SQ SCH ×2 (08:17→20:39)
[2022-05-22] MEDS: THIAMINE 100 MG TAB PO SCH ×2 (08:18→18:23)
[2022-05-22] MEDS: amLODIPine 2.5 MG TAB PO SCH (08:18)
[2022-05-22] MEDS: PANTOPRAZOLE 40 MG TABLET PO SCH (08:18)
[2022-05-22] MEDS: FOLIC ACID 1 MG TAB PO SCH (13:19)
[2022-05-22] MEDS: MULTIVITAMINS, THERA 1 EACH TAB PO SCH (13:19)
--- NOTE | 2022-05-22 15:00 | P.PN ---
Subjective Progress Note Date: 05/22/22 Patient is evaluated today on the medical floor. Follow up with [facility] states that they cannot accept patient until Monday. No acute events overnight. Most recent labs showing white count 7.29, sodium 137, CRP 6.0 and procal 0.36. Repeat urine on the also negative. Vitals showing temperature 97.9, heart rate 68, blood pressure 132/75, 96% room air. 05/22/2022 Patient is evaluated ambulating on the 5th floor. His mentation has slightly improved. He reports no acute events overnight and reports feeling well today. Plans for transfer to ECF on Monday. Repeat blood cultures are negative. Hemody namically stable. Review of Systems Constitutional: Denied any fatigue denied any fever. Cardio vascular: denied any chest pain, palpitations Gastrointestinal: denied any nausea, vomiting, diarrhea Pulmonary: Denied any shortness of breath cough Neurologic denied any new focal deficits All inpatient medications were reviewed and appropriate changes in these medications as dictated in the interval history and assessment and plan. Gen: This is a 66-year-old male awake, alert and oriented 2-3. Well-developed, well-nourished. HEENT: Head is atraumatic, normocephalic. Pupils equal, round. Sclerae is anicteric. NECK: Supple. No JVD. No lymphadenopathy. No thyromegaly. LUNGS: Clear to auscultation. No wheezes or rhonchi. No intercostal retractions. HEART: Regular rate and rhythm. No murmur. ABDOMEN: Soft. Bowel sounds are present. No masses. No tenderness. EXTREMITIES: No pedal edema. No calf tenderness. NEUROLOGICAL: Patient is awake, alert and oriented x3. Cranial nerves 2 through 12 are grossly intact. Please refer to medication reconciliation sheet for a list of medications. Assessment and Plan Acute alcohol withdrawal and early delirium tremens, resolved fevers, unknown etiology, possible hospital acquired pneumonia due to gram negative pathogen growing klebsiella oxytoca, concern for aspiration pneumonia as well hepatic steatosis with elevated lfts. Continued ongoing nicotine dependence Thrombocytopenia most likely from chronic alcohol use, improving Acute rhabdomyolysis possibly due to alcohol, resolved Hyponatremia, hypovolemic, resolved History of anxiety/depression Gait dysfunction GI prophylaxis DVT prophylaxis Full code GI Prophylaxis DVT Prophylaxis Plan Continue with current supportive care. Patient is pending ECF placement on Monday at [facility]. The impression and plan of care has been dictated by Dulce Amos Nurse Practitioner as directed. Dr. Bonnie MD I have performed a history and physical examination and medical decision making of this patient, discussed the same with the dictator, and agree with the d ictators assessment and plan as written, documented as a scribe. Based on total visit time, I have performed more than 50% of this visit. Objective - Vital Signs Vital signs: Vital Signs Temp 98 F 05/22/22 11:37 Pulse 92 05/22/22 11:37 Resp 18 05/22/22 11:37 BP 117/77 05/22/22 11:37 Pulse Ox 98 05/22/22 11:37 FiO2 Intake & Output 05/21/22 05/22/22 05/22/22 18:59 06:59 18:59 Intake Total 200 920 120 Balance 200 920 120 Intake: Intake, IV Titration 200 200 Amount Ampicillin-Sulbactam 3 gm 200 200 In Sodium Chloride 0.9% 100 ml @ 200 mls/hr IVPB Q6HR [facility] Rx#:[id number] Oral 720 120 Other: Voiding Method Toilet Toilet Toilet Urinal # Voids 2 3 - Labs CBC & Chem 7: 05/18/22 06:29 05/18/22 06:29 Labs: Microbiology - Last 24 Hours (Table) 05/17/22 12:01 Blood Culture - Preliminary Blood No Growth after 120 hours Assessment and Plan Time with Patient: Less than 30
--- NOTE | 2022-05-22 16:57 | P.PN ---
Subjective Progress Note Date: 05/22/22 Principal diagnosis: Klebsiella bacteremia Patient is a 66-year-old male with a past medical history significant for alcoholism, presented to hospital for evaluation of mental status changes and the patient was being treated for possible DTs subsequently he did spike a fever and did have a positive blood culture with Klebsiella concern for possible pneumonia. On today's evaluation that is 05/22/2022, the patient continues to be afebrile , the patient is breathing comfortably on room air , the patient denies any chest pain or shortness of breath, the patient did have occasional dry cough denies any abdominal pain and no diarrhea Objective - Vital Signs Vital signs: Vital Signs Temp 98 F 05/22/22 11:37 Pulse 92 05/22/22 11:37 Resp 18 05/22/22 11:37 BP 117/77 05/22/22 11:37 Pulse Ox 98 05/22/22 11:37 FiO2 Intake & Output 05/21/22 05/22/22 05/22/22 18:59 06:59 18:59 Intake Total 200 920 120 Balance 200 920 120 Intake: Intake, IV Titration 200 200 Amount Ampicillin-Sulbactam 3 gm 200 200 In Sodium Chloride 0.9% 100 ml @ 200 mls/hr IVPB Q6HR [facility] Rx#:[id number] Oral 720 120 Other: Voiding Method Toilet Toilet Toilet Urinal # Voids 2 3 - Exam GENERAL DESCRIPTION: Middle-age male lying in bed in no distress RESPIRATORY SYSTEM: Unlabored breathing , decreased breath sounds at bases HEART: S1 S2 regular rate and rhythm , ABDOMEN: Soft , no tenderness EXTREMITIES: No edema feet - Labs CBC & Chem 7: 05/18/22 06:29 05/18/22 06:29 Labs: Microbiology - Last 24 Hours (Table) 05/17/22 12:01 Blood Culture - Preliminary Blood No Growth after 120 hours Assessment and Plan (1) Bacteremia Current Visit: Yes Status: Acute Code(s): R78.81 - BACTEREMIA SNOMED Code(s): 1007211 Plan: 1patient with a Klebsiella bacteremia could be related to the left lower lobe pneumonia this patient has been in the hospital for the last 9 days and treated for possible DTs, patient did have a negative UA abdominal soft clinical examination and no evidence of any joint swelling or cellulitis however the patient did have a elevated liver enzymes and will need to rule out intra- abdominal source 2-blood cultures has been repeated which has been negative so far 3- ultrasound of the liver and gallbladder area, did not show any gallbladder abnormality possible hepatocellular disease 4-patient with a new fever blood cultures repeated which has been negative, repeat chest x-ray concerning for possible pneumonia 5-patient has shown clinical improvement fever has resolved patient to continue with Unasyn finishing therapy with Augmentin Time with Patient: Less than 30
[2022-05-22] MEDS: LORazepam 1 MG TAB PO PRN (18:22)
[2022-05-22] MEDS: QUEtiapine 25 MG TAB PO SCH (20:39)
[2022-05-23] MEDS: AMPICILLIN-SULBACTAM 3 GM in SODIUM CHLORIDE 0.9% 100 ML IVPB SCH ×4 (01:01→17:11)
[2022-05-23] MEDS: IPRATROPIUM-ALBUTEROL 3 ML NEB INHALATION SCH ×3 (08:02→19:54)
[2022-05-23] MEDS: HEPARIN SODIUM,PORCINE/PF 5,000 UNIT/0.5 ML SYRINGE SQ SCH ×2 (08:46→20:15)
[2022-05-23] MEDS: PANTOPRAZOLE 40 MG TABLET PO SCH (08:46)
[2022-05-23] MEDS: THIAMINE 100 MG TAB PO SCH ×2 (08:46→17:11)
[2022-05-23] MEDS: amLODIPine 2.5 MG TAB PO SCH (08:46)
[2022-05-23] MEDS: MULTIVITAMINS, THERA 1 EACH TAB PO SCH (11:14)
[2022-05-23] MEDS: FOLIC ACID 1 MG TAB PO SCH (11:14)
--- NOTE | 2022-05-23 12:37 | P.PN ---
Subjective Progress Note Date: 05/23/22 Principal diagnosis: Klebsiella bacteremia Patient is a 66-year-old male with a past medical history significant for alcoholism, presented to hospital for evaluation of mental status changes and the patient was being treated for possible DTs subsequently he did spike a fever and did have a positive blood culture with Klebsiella concern for possible pneumonia. On today's evaluation that is 05/23/2022, the patient remains to be afebrile , the patient is breathing comfortably on room air , the patient denies any chest pain or shortness of breath, the patient did have occasional dry cough , the patient denies any abdominal pain and no diarrhea, patient feeling better Objective - Vital Signs Vital signs: Vital Signs Temp 97.8 F 05/23/22 11:20 Pulse 74 05/23/22 11:47 Resp 17 05/23/22 11:20 BP 118/76 05/23/22 11:20 Pulse Ox 95 05/23/22 11:20 FiO2 Intake & Output 05/22/22 05/23/22 05/23/22 18:59 06:59 18:59 Intake Total 320 Output Total 300 300 Balance 320 -300 -300 Intake: Intake, IV Titration 200 Amount Ampicillin-Sulbactam 3 gm 200 In Sodium Chloride 0.9% 100 ml @ 200 mls/hr IVPB Q6HR [facility] Rx#:[id number] Oral 120 Output: Urine 300 300 Other: Voiding Method Toilet Toilet Urinal Urinal - Exam GENERAL DESCRIPTION: Middle-age male lying in bed in no distress RESPIRATORY SYSTEM: Unlabored breathing , decreased breath sounds at bases HEART: S1 S2 regular rate and rhythm , ABDOMEN: Soft , no tenderness EXTREMITIES: No edema feet - Labs CBC & Chem 7: 05/18/22 06:29 05/18/22 06:29 Labs: Microbiology - Last 24 Hours (Table) 05/17/22 12:01 Blood Culture - Preliminary Blood No Growth after 120 hours Assessment and Plan (1) Bacteremia Current Visit: Yes Status: Acute Code(s): R78.81 - BACTEREMIA SNOMED Code(s): 8735601 Plan: 1patient with a Klebsiella bacteremia could be related to the left lower lobe pneumonia this patient has been in the hospital for the last 9 days and treated for possible DTs, patient did have a negative UA abdominal soft clinical examination and no evidence of any joint swelling or cellulitis however the patient did have a elevated liver enzymes and will need to rule out intra- abdominal source 2-blood cultures has been repeated which has been negative so far 3- ultrasound of the liver and gallbladder area, did not show any gallbladder abnormality possible hepatocellular disease 4-patient with a new fever blood cultures repeated which has been negative, repeat chest x-ray concerning for possible pneumonia 5-patient has shown clinical improvement patient is currently being treated with Unasyn finishing therapy with Augmentin 7 days Time with Patient: Less than 30
[2022-05-23] MEDS: QUEtiapine 25 MG TAB PO SCH (20:14)
--- NOTE | 2022-05-23 20:25 | P.PN ---
Subjective Progress Note Date: 05/23/22 This is a 66-year-old male who was recently admitted with a past medical history of significant alcohol use and admitted with alcohol withdrawal and is being closely monitored. Patient also with features of rhabdomyolysis and is maintained on IV hydration. Patient continues on CIWA protocol and also con tinues with significant weakness. Case management following as physical therapy recommending ECF and patient along with family are agreeable. Patient is currently afebrile denies chest pain or shortness of breath. Patient's blood pressure mildly elevated recommend monitoring closely and will repeat labs. Patient denies nausea or vomiting and is tolerating oral intake. 05/06/2022 Patient is seen and evaluated in follow-up this morning continues to be confused and redirects easily maintained on CIWA protocol. Patient also continues on IV hydration and creatinine kinase is improved from 1401 on admission down to 802. Patient continues to require IV Ativan and will add oral Ativan and also Librium taper. Will add Seroquel at night as patient continues to have confusion needing redirection. Currently a sitter at the bedside for safety. Patient is afebrile and denies chest pain or shortness of breath. Patient is tolerating diet although has no teeth and has been changed to dysphagia ground diet. Potassium was 3.4 today and will replace and recommend repeat labs. Magnesium was 1.9 today. Liver functions are trending down. Case management is following as patient continues with weakness and recommend physical therapy evaluation daily and plan is for ECF. 05/07/2022 Patient is evaluated today resting in bed. He does have tremors noted with arms extended. Less confused today. He is able to hold a conversation. Labs today showing a sodium level of 134, potassium level 3.6, BUN 10, creatinine 0.48. Total bilirubini 2.0, liver enzymes stable. He continues on normal saline at 75 mls per hour. Will repeat sodium in the AM. He is requiring IV ativan about twice a day, seroquel at HS, and also he is on librium taper currently 25 mg PO TID. Blood pressure 147/85, heart rate 68, afebrile, 96% room air. Sitter no longer at bedside. Patient does not currently have accepting facility to ECF. Follow up on Monday when case management returns. 05/08/2022 Patient continues on IV ativan for acute alcohol withdrawal delirum tremens. He is also on librium, seroquel. No sitter at bedside. No acute event overnight. Mentation is improving. Sodium has improved to 135, potassium 3.6, magnesium 2.0. Continues on normal saline. Blood pressure 148/86. Increase activity level, encourage diet. Pending subacute rehab, having issues finding accepting facility. 05/09/2022 Patient today is doing well he is alert x 2-3. No acute events overnight, has not had sitter at the bedside. Tremors have resolved. He has not required IV ativan overnight. He does report increasing diet and has been eating and drinking well. He is afebrile, heart rate 75, blood pressure 106/72, 93% room air. Family is wanting evaluation for short term memory loss speech therapy has been consulted. Discussed clinical course and plan of care with family over the phone. There is no power of family law attorney in place. Patient will need subacute rehab, daughter would like permanent placement. Requesting to speak with case management tomorrow regarding discharge planning. 05/10/2022 Patient is seen and evaluated in follow-up and undergoing speech therapy evaluation for cognition with family at the bedside. Patient continues on Librium taper and not requiring ativan per nursing. Case management following and continuing to work on an accepting ecf. PT working with the patient today for updated notes as patient continues with weakness. Patient is afebrile and denies chest pain or shortness of breath. No reports of nausea or vomiting and tolerating diet. Will follow up with case management. 05/11/2022 Patient is seen and evaluated in follow-up this morning in case management following [facility] has accepted the patient and currently awaiting insurance authorization which was submitted today. Possible discharge in 24 hours. Patient is continued on Librium taper and as needed CIWA protocol although has not been requiring any Ativan. Patient continues on gentle IV hydration and will continue. Encouraged oral intake and increased activity as tolerated. Patient denies chest pain or shortness of breath. Patient is afebrile. Patient denies nausea or vomiting and has been tolerating dysphagia diet. 05/12/2022 Patient is seen this morning with family at the bedside reports that he is more lethargic today and difficult to arouse. Patient is lethargic although arousable on exam. Answering questions appropriately but is more fatigued. No reports of overnight issues, but RN this morning reports a dose of ativan was given around 3am this morning. Will decrease and taper the librium. Patient now having fevers and lower blood pressure. Recommend IV fluids and will get a chest xray, ua with reflex to culture, blood culture, tylenol for fever, and further labs. Will order covid and influenza testing as well. Check procalcitonin. 05/13/2022 Patient is seen today and has been started on IV rocephin and reported to have positive blood cultures and are growing kleb oxytoca. Recommend repeat blood cultures. Will consult ID and appreciate input and recommendations as there is a clinical suspicion for hospital acquired pneumonia. Will decrease the IV fluid rate and follow up with repeat labs. Will also add duoneb treatments and encouraged incentive spirometer use at least 10 times per hour while awake. Sputum culture ordered as well. Patient with low grade temps. Patient denies chest pain or shortness of breath. Patient does report some cough. Not eating as much but reports he did eat some breakfast which is improved from yesterday. 05/14/2022 Patient is seen today and continues on IV ceftriaxone and cultures showing klebsiella oxytoca. ID following and ct abdomen ordered to assess for possible abdominal source of infection due to elevated LFTs. Patient started on duoneb treatments although has been refusing. Needs constant encouragement on IS use. Sputum culture was ordered and continues to not be collected. Patient denies chest pain or shortness of breath. Awaiting repeat blood cultures. Recommend repeat labs in the am and will continue to monitor closely. 05/15/2022 Patient is seen today and abdominal ultrasound done with no acute process noted and suggestive with hepatic steatosis. Patient is on ceftriaxone and will continue. Patient is afebrile and denies chest pain or shortness of breath. Patient was up and able to shower yesterday but continues to mostly sleep. encouraged increased activity as tolerated. Repeat blood cultures are negative. Recommend repeat labs and follow up chest xray. Continue to encourage IS use. 05/16/2022 Patient is seen and evaluated today and continued on ceftriaxone with ID following. Cultures finalized with klebsiella oxytoca with sensitivities and patient remains afebrile. Off oxygen and maintaining oxygen saturations above 90%. Encouraged increased activity as tolerated and encouraged oral intake. Working on weaning librium and will taper off tomorrow. [facility] has now declined the patient and family feels they are unable to care for him recommending referrals to other facilities that can possibly accommodate for weakness. PT/OT following. Encouraged incentive spirometer use. Repeat blood cultures remain negative. 05/17/2022 Patient is seen in follow up today and was doing well however has now spiked some temps again and was continued on ceftriaxone and ID following requesting repeat chest xray, UA, and blood cultures. Encouraged the patient to continue using IS and increase activity as tolerated. Patient denies chest pain or shortness breath. Patient reports to eating with no reports of nausea or vomiting noted. Case management following and continues to search for an accepting facility as we still have no safe discharge home. Family continues to report they have no way of caring for him. 05/18/2022 Patient is seen in follow-up today with ID following and antibiotics have been transitioned to Unasyn while awaiting for repeat blood cultures. Patient did have 1 low-grade temp of 99.9 this morning although has been afebrile all day. Patient is denying chest pain or shortness of breath and is 93% on room air. Patient has been up and walking and working with physical therapy. Repeat labs this morning reveal a WBC of 7.29 hemoglobin is 13.3 BMP within normal limits and repeat urinalysis was negative. Need to discuss further with infectious disease about treatment plan moving forward. Case management continues to follow working on discharge planning although no safe discharge at this point and may require guardianship as there are no accepting ECF facilities and family continues to report they are unable to care for him at home. 05/20/2022 Patient is seen and evaluated in follow-up today no complaints of chest pain or shortness of breath. Chest x-ray continues to show left lung infiltrate and patient has been refusing breathing treatments. Patient being followed by ID and cultures remain negative and patient is continued on IV Unasyn and will continue. Case management also following and there is a court hearing tomorrow for guardianship from the family. There is one potential ECF possibly willing to accept although there are complications due to insurance in case management is following working on discharge planning. Patient is afebrile. Patient has been working with physical therapy and compliant with that. Patient needs to continue with incentive spirometer and discussed again with the patient about the importance of breathing treatments and continuing to use the incentive spirometer throughout the day. Patient needs to increase activity as tolerated and get up out of bed more often. 05/22/2022 Patient is evaluated ambulating on the 5th floor. His mentation has slightly improved. He reports no acute events overnight and reports feeling well today. Plans for transfer to [facility] on Monday. Repeat blood cultures are negative. Hemodynamically stable. 05/23/2022 Patient is seen in follow up today with social work following and patient was supposed to go to [facility] although apparently there was an outbreak of covid at the facility and not able to accept at this time. Patient family continues to report they are unable to take the patient home and care for him. Social work following and has submitted multiple other referrals to other [facility] and awaiting accepting facility. Patient is doing well and walking the unit multiple times throughout the day. Tolerating diet with no reports of nausea or vomiting noted. Patient denies chest pain or palpitations at this time. Review of systems: Constitutional: no reports of fatigue, fever, or chills Cardiovascular: No reports of chest pain or palpitations Respiratory: No reports of shortness of breath, reports occasional cough GI: No reports of nausea, vomiting, or diarrhea : No reports of dysuria or retention Neurovascular: no reports of weakness All medications have been reviewed PHYSICAL EXAMINATION: GENERAL: The patient is alert and oriented x2, with intermittent periods of confusion, thin built, elderly appearing male HEENT: Pupils are round and equally reacting to light. EOMI. no scleral icterus. No conjunctival pallor. Normocephalic, atraumatic. No pharyngeal erythema. No thyromegaly. CARDIOVASCULAR: S1 and S2 muffled PULMONARY: diminished breath sounds bilaterally with some scattered rhonchi noted. ABDOMEN: soft. Nontender on exam. non-distended, normoactive bowel sounds. No palpable organomegaly. MUSCULOSKELETAL: No joint swelling or deformity. EXTREMITIES: No cyanosis, clubbing, or pedal edema. NEUROLOGICAL: Gross neurological examination did not reveal any focal deficits. Diffuse weakness SKIN: No rashes. Assessment: Acute alcohol withdrawal and early delirium tremens, resolved fevers, unknown etiology, possible hospital acquired pneumonia due to gram negative pathogen growing klebsiella oxytoca, concern for aspiration pneumonia as well hepatic steatosis with elevated lfts. Continued ongoing nicotine dependence Thrombocytopenia most likely from chronic alcohol use, improving Acute rhabdomyolysis possibly due to alcohol, resolved Hyponatremia, hypovolemic from poor oral intake improved with IV fluids History of anxiety/depression Gait dysfunction GI prophylaxis DVT prophylaxis Full code Plan: Cultures have finalized klebsiella oxytoca with sensitivities, repeat blood cultures are negative, patient continued on Unasyn with ID following and considering oral medications on discharge of augmentin. will continue with Unasyn and transition to oral Augmentin on discharge Encouraged incentive spirometer use and needs constant encouragement. Encouraged increased activity and strongly encourage the use of DuoNeb treatments Continue seroquel Encourage increased activity as tolerated. Case management/social work following and working on discharge planning as apparently [facility] had an outbreak of covid cases and unable to accept, family continues to report they are unable to care for him in their home and social work has sent out more referrals awaiting accepting facilities. The impression and plan of care has been dictated by Leticia Hardy, nurse practitioner as directed. Dr. Bonnie MD I have performed a history and examination and MDM of this patient, discussed the same with the dictator, and agree with the dictator's assessment and plan as written ,documented as a scribe. Based on total visit time, I have performed more than 50% of the visit. Any additional findings or plans will be noted. Objective - Vital Signs Vital signs: Vital Signs Temp 98.3 F 05/23/22 03:48 Pulse 59 L 05/23/22 03:48 Resp 15 05/23/22 03:48 BP 103/63 05/23/22 03:48 Pulse Ox 93 L 05/23/22 03:48 FiO2 Intake & Output 05/22/22 05/23/22 05/23/22 18:59 06:59 18:59 Intake Total 320 Output Total 300 300 Balance 320 -300 -300 Intake: Intake, IV Titration 200 Amount Ampicillin-Sulbactam 3 gm 200 In Sodium Chloride 0.9% 100 ml @ 200 mls/hr IVPB Q6HR [facility] Rx#:[id number] Oral 120 Output: Urine 300 300 Other: Voiding Method Toilet Toilet Urinal Urinal - Labs CBC & Chem 7: 05/18/22 06:29 05/18/22 06:29 Labs: Microbiology - Last 24 Hours (Table) 05/17/22 12:01 Blood Culture - Preliminary Blood No Growth after 120 hours
[2022-05-24] MEDS: AMPICILLIN-SULBACTAM 3 GM in SODIUM CHLORIDE 0.9% 100 ML IVPB SCH ×2 (00:58→06:05)
[2022-05-24 06:26] VITALS: BP 120/67; PULSE 62; TEMP 97.8
[2022-05-24] MEDS: THIAMINE 100 MG TAB PO SCH (07:53)
[2022-05-24] MEDS: PANTOPRAZOLE 40 MG TABLET PO SCH (07:53)
[2022-05-24] MEDS: amLODIPine 2.5 MG TAB PO SCH (07:53)
[2022-05-24] MEDS: HEPARIN SODIUM,PORCINE/PF 5,000 UNIT/0.5 ML SYRINGE SQ SCH (07:56)
[2022-05-24] MEDS: IPRATROPIUM-ALBUTEROL 3 ML NEB INHALATION SCH ×2 (08:50→12:00)
--- NOTE | 2022-05-24 09:29 | P.DS ---
Providers Date of admission: 05/04/22 13:58 Expected date of discharge: 05/24/22 Attending physician: Linda Underwood Consults: 05/13/22 14:15 Consult Physician Urgent Consulting Provider: Rupert Almonte Consult Reason/Comments: positive blood cultures kleb oxy after one week hospitalization ? pna Do you want consulting provider notified?: Yes Primary care physician: Stated None Hospital Course: Final diagnosis Acute alcohol withdrawal and early delirium tremens, resolved fevers, unknown etiology, possible hospital acquired pneumonia due to gram negative pathogen growing klebsiella oxytoca, concern for aspiration pneumonia as well hepatic steatosis with elevated lfts. Continued ongoing nicotine dependence Thrombocytopenia most likely from chronic alcohol use, improving Acute rhabdomyolysis possibly due to alcohol, resolved Hyponatremia, hypovolemic from poor oral intake improved with IV fluids History of anxiety/depression Gait dysfunction GI prophylaxis DVT prophylaxis Full code Discharge disposition Patient is being discharged in a stable condition with guarded prognosis to [facility]. Patient will follow-up with Dr. Monroy in the outpatient setting upon discharge. Patient is to continue with oral Augmentin twice daily for the next 10 days to complete the course. as scheduled. Total time taken is greater than 35 minutes. Hospital course This is a 66 year-old male who was recently admitted with altered mental status, confusion and acute alcohol withdrawal was being closely monitored. Patient was maintained on CIWA protocol along with a Librium taper and Ativan as needed and all has been discontinued. Patient with prolonged hospitalization also developed most likely a component of aspiration pneumonia versus hospital- acquired pneumonia although has improved significantly was maintained on IV antibiotics with infectious disease following. Recent blood cultures and all other cultures have been negative and patient will continue short course of oral Augmentin for the next 10 days to complete a course. Currently no reports of chest pain, shortness of breath, or palpitations. Patient is afebrile. No reports of nausea or vomiting and patient is tolerating diet. Recommend dysphagia 2 ground diet as patient has multiple missing teeth. Patient will be going to [facility] today. Physical exam: Gen: This is a 66-year-old male awake, alert and oriented 2, well-developed, well-nourished. HEENT: Head is atraumatic, normocephalic. Pupils equal, round. Sclerae is anict sandra. NECK: Supple. No JVD. No lymphadenopathy. No thyromegaly. LUNGS: Clear to auscultation. No wheezes or rhonchi. No intercostal retractions. HEART: Regular rate and rhythm. No murmur. ABDOMEN: Soft. Bowel sounds are present. No masses. No tenderness. EXTREMITIES: No pedal edema. No calf tenderness. NEUROLOGICAL: Patient is awake, alert and oriented x3. Cranial nerves 2 through 12 are grossly intact. Please refer to medication reconciliation sheet for a list of medications. The impression and plan of care has been dictated by Leticia Hardy, Nurse Practitioner as directed. MD Milana I have performed a history and examination and MDM of this patient, discussed the same with the dictator, and agree with the dictator's assessment and plan as written ,documented as a scribe. Based on total visit time, I have performed more than 50% of the visit. Patient Condition at Discharge: Fair Plan - Discharge Summary Discharge Rx Participant: No New Discharge Prescriptions: New Amoxic-Pot Clav 875-125Mg [Augmentin 875-125] 1 tab PO Q12HR 10 Days #20 tab Ipratropium-Albuterol Nebulize [Duoneb 0.5 mg-3 mg/3 ml Soln] 3 ml INHALATION RT-TID each Pantoprazole [Protonix] 40 mg PO AC-BRKFST tab Thiamine [Vitamin B-1] 100 mg PO BID-W/MEALS tab Folic Acid 1 mg PO DAILY@1200 tab Multivitamins, Thera [Multivitamin (formulary)] 1 each PO DAILY@1200 tab amLODIPine [Norvasc] 2.5 mg PO DAILY tab QUEtiapine [SEROquel] 25 mg PO HS tab Acetaminophen Tab [Tylenol] 650 mg PO Q6HR PRN tab PRN Reason: Fever And/ Or Pain Discharge Medication List Acetaminophen Tab [Tylenol] 650 mg PO Q6HR PRN tab 05/20/22 [Rx] Amoxic-Pot Clav 875-125Mg [Augmentin 875-125] 1 tab PO Q12HR 10 Days #20 tab 05/20/22 [Rx] Folic Acid 1 mg PO DAILY@1200 tab 05/20/22 [Rx] Ipratropium-Albuterol Nebulize [Duoneb 0.5 mg-3 mg/3 ml Soln] 3 ml INHALATION RT-TID each 05/20/22 [Rx] Multivitamins, Thera [Multivitamin (formulary)] 1 each PO DAILY@1200 tab 05/20/22 [Rx] Pantoprazole [Protonix] 40 mg PO AC-BRKFST tab 05/20/22 [Rx] QUEtiapine [SEROquel] 25 mg PO HS tab 05/20/22 [Rx] Thiamine [Vitamin B-1] 100 mg PO BID-W/MEALS tab 05/20/22 [Rx] amLODIPine [Norvasc] 2.5 mg PO DAILY tab 05/20/22 [Rx] Follow up Appointment(s)/Referral(s): None,Stated [Primary Care Provider] - 1-2 days Activity/Diet/Wound Care/Special Instructions: clothes/shoes in locker #19 Patient will be going to [facility] as tolerated Continue with dysphagia 2 ground diet and aspiration precautions with head of the bed elevated while eating or sitting up with all meals Continue with DuoNeb treatments 3 times a day and when necessary Encourage incentive spirometer use at least 10 times every hour while awake Continue Augmentin twice daily for the next 10 days to complete the course Follow-up with primary care provider on discharge Continue to encourage complete alcohol abstinence Discharge/Stand Alone Forms: AA Meetings [facility], Community Resources, Inp Substance Abuse Facilities, [employer] Discharge Disposition: TRANSFER TO SNF/ECF
[2022-05-24 11:00] VITALS: RESP 18
== END 2022-05-24 13:16 | DRG 896 ==
LOC: EC 09:24 → 5NMEDONC 13:58 → EEVIPCON 13:58 → 5NMEDONC 18:22
PROVIDERS: ADMIT Hospitalist; ATTEND Hospitalist
DX: F10.231 Alcohol dependence with withdrawal delirium (principal); J15.0 Pneumonia due to Klebsiella pneumoniae; E87.1 Hypo-osmolality and hyponatremia; M62.82 Rhabdomyolysis; R78.81 Bacteremia; F10.229 Alcohol dependence with intoxication, unspecified; Z20.822 Contact with and (suspected) exposure to COVID-19; R26.9 Unspecified abnormalities of gait and mobility; D69.59 Other secondary thrombocytopenia; E86.0 Dehydration; K02.9 Dental caries, unspecified; F17.200 Nicotine dependence, unspecified, uncomplicated; E86.1 Hypovolemia; Y90.6 Blood alcohol level of 120-199 mg/100 ml; Z71.41 Alcohol abuse counseling and surveillance of alcoholic
CPT/HCPCS: 36415; 70450; 70496; 71045; 71046; 76700; 80048; 80053; 80074; 80306; 80320; 81001; 81003; 82550; 82607; 82746; 83605; 83735; 84145; 84484; 85025; 85027; 85610; 85730; 86140; 87040; 87077; 87186; 87502; 87635; 90715; 93005; 94640; 94760

== ENCOUNTER 2023-02-20 09:50 | Inpatient (IN) | payer MEDICARE, OTHER ==
[2023-02-20] MEDS ORDERED: ONDANSETRON 4 MG/2 ML VIAL IVP STA (10:05)
[2023-02-20] MEDS ORDERED: SODIUM CHLORIDE 0.9% 1,000 ML IV STA (10:05)
[2023-02-20] MEDS ORDERED: HYDROmorphone 1 MG/ML 1 ML SYRINGE IVP STA ×2 (10:06→10:27)
[2023-02-20] MEDS ORDERED: SODIUM CHLORIDE 0.9% 500 ML 500 ML IV ONE (10:11)
[2023-02-20] MEDS ORDERED: PIPERACILLIN-TAZOBACTAM 3.375 GM in SODIUM CHLORIDE 0.9% 100 ML IVPB STA (10:12)
--- NOTE | 2023-02-20 10:15 | ED ---
General Adult HPI - General Chief complaint: Abdominal Pain Stated complaint: ABD Pain Time Seen by Provider: 02/20/23 10:00 Source: patient, family, RN notes reviewed, old records reviewed Mode of arrival: wheelchair Limitations: no limitations - History of Present Illness Initial comments: 67-year-old male history of tobacco use presenting with severe, sudden onset abdominal pain. No reported vomiting. Normal bowel movement yesterday. No fever. No preceding symptoms. Pain is severe and generalized. - Related Data Previous Rx's Medication Instructions Recorded Acetaminophen Tab [Tylenol] 650 mg PO Q6HR PRN tab 05/20/22 Amoxic-Pot Clav 875-125Mg 1 tab PO Q12HR 10 Days #20 tab 05/20/22 [Augmentin 875-125] Folic Acid 1 mg PO DAILY@1200 tab 05/20/22 Ipratropium-Albuterol Nebulize 3 ml INHALATION RT-TID each 05/20/22 [Duoneb 0.5 mg-3 mg/3 ml Soln] Multivitamins, Thera [Multivitamin 1 each PO DAILY@1200 tab 05/20/22 (formulary)] Pantoprazole [Protonix] 40 mg PO AC-BRKFST tab 05/20/22 QUEtiapine [SEROquel] 25 mg PO HS tab 05/20/22 Thiamine [Vitamin B-1] 100 mg PO BID-W/MEALS tab 05/20/22 amLODIPine [Norvasc] 2.5 mg PO DAILY tab 05/20/22 Allergies Allergy/AdvReac Type Severity Reaction Status Date / Time No Known Allergies Allergy Verified 02/20/23 10:00 Review of Systems ROS Statement: Those systems with pertinent positive or pertinent negative responses have been documented in the HPI. ROS Other: All systems not noted in ROS Statement are negative. Past Medical History Past Medical History: No Reported History Additional Past Medical History / Comment(s): Alcohol abuse, diverticular disease. History of Any Multi-Drug Resistant Organisms: None Reported Past Surgical History: Back Surgery, Bowel Resection, Hernia Repair Additional Past Surgical History / Comment(s): Exploratory laparotomy d/t necrot ic small bowel, colonoscopy, low back surgery, umbilical hernia repair as an . Past Anesthesia/Blood Transfusion Reactions: No Reported Reaction Past Psychological History: Anxiety, Depression Smoking Status: Current every day smoker Past Alcohol Use History: None Reported Past Drug Use History: None Reported - Past Family History Mother Family Medical History: No Reported History Father Family Medical History: Congestive Heart Failure (CHF), CVA/TIA General Exam Limitations: no limitations General appearance: alert, in distress Head exam: Present: atraumatic, normocephalic Eye exam: Present: normal appearance, PERRL ENT exam: Present: normal exam Neck exam: Present: normal inspection. Absent: tenderness, meningismus Respiratory exam: Present: normal lung sounds bilaterally. Absent: respiratory distress, wheezes Cardiovascular Exam: Present: regular rate, normal rhythm GI/Abdominal exam: Present: distended, tenderness, guarding Extremities exam: Present: normal inspection, normal capillary refill. Absent: calf tenderness Neurological exam: Present: alert, CN II-XII intact. Absent: oriented X3, motor sensory deficit Psychiatric exam: Present: anxious Skin exam: Present: warm, dry, intact Course Vital Signs 02/20/23 02/20/23 02/20/23 09:51 10:21 11:00 Temperature 97.7 F Pulse Rate 84 77 67 Respiratory 22 24 22 Rate Blood Pressure 145/88 152/89 108/89 O2 Sat by Pulse 96 97 Oximetry - Reevaluation(s) Reevaluation #1: 02/20/23 10:15 Patient is able to answer direct questions but is in severe pain limiting history. Medical Decision Making - Medical Decision Making Was pt. sent in by a medical professional or institution (ISABELLA Colmenares, DISABILITY MANAGER, urgent care, hospital, or [facility]...) When possible be specific @ -No Did you speak to anyone other than the patient for history (EMS, parent, family, police, friend...)? What history was obtained from this source @ -No Did you review nursing and triage notes (agree or disagree)? Why? @ -I reviewed and agree with nursing and triage notes Were old charts reviewed (outside hosp., previous admission, EMS record, old EKG, old radiological studies, urgent care reports/EKG's, [facility] records)? Report findings @ Previous surgical degradation Differential Diagnosis (chest pain, altered mental status, abdominal pain women, abdominal pain men, vaginal bleeding, weakness, fever, dyspnea, syncope, headache, dizziness, GI bleed, back pain, seizure, CVA, palpatations, mental health, musculoskeletal)? @ Differential Abdominal Pain Men: Appendicitis, cholecystitis, diverticulosis, ischemic bowel, pancreatitis, h epatitis, UTI, gastroenteritis, AAA, incarcerated hernia, bowel obstruction, constipation, inflammatory bowel, hepatitis, peptic ulcer disease, splenic infarction, perforated viscus, testicular torsion, this is not meant to be an all-inclusive list] EKG interpreted by me (3pts min.). @Sinus rhythm, no ST segment elevation, rate of 75, IN interval 177, QRS durat ion 106, QTC 435 artifact in V3 X-rays interpreted by me (1pt min.). @ -None done CT interpreted by me (1pt min.). @ -None done U/S interpreted by me (1pt. min.). @ -None done What testing was considered but not performed or refused? (CT, X-rays, U/S, labs)? Why? @ -None What meds were considered but not given or refused? Why? @ -None Did you discuss the management of the patient with other professionals (professionals i.e. , PA, DISABILITY MANAGER, lab, RT, psych nurse, health social work professor, director government, teacher, chief fundraising officer, case investigator)? Give summary @ -[Dr. Wells Was smoking cessation discussed for >3mins.? @ -No Was critical care preformed (if so, how long)? @ -No Were there social determinants of health that impacted care today? How? (Homelessness, low income, unemployed, alcoholism, drug addiction, transportation, low edu. Level, literacy, decrease access to med. care, usp, r ehab)? @ -No Was there de-escalation of care discussed even if they declined (Discuss DNR or withdrawal of care, Hospice)? DNR status @ -No What co-morbidities impacted this encounter? (DM, HTN, Smoking, COPD, CAD, Cancer, CVA, ARF, Chemo, Hep., AIDS, mental health diagnosis, sleep apnea, morbid obesity)? @ -[Tobacco use Was patient admitted / discharged? Hospital course, mention meds given and route, prescriptions, significant lab abnormalities, going to OR and other pertinent info. @ -[67-year-old male presenting with abdominal pain, distention. Workup init iated, CBC, CMP, lactic acid obtained and all are within normal limits. CT shows small bowel obstruction. After initial pain management and IV fluids the patient's pain is significantly improved. No vomiting. NG tube will be placed in the emergency department. Patient will be admitted to general surgery. Undiagnosed new problem with uncertain prognosis? @ -No Drug Therapy requiring intensive monitoring for toxicity (Heparin, Nitro, Ins ulin, Cardizem)? @ -No Were any procedures done? @ -No Diagnosis/symptom? @ -[Small bowel obstruction Acute, or Chronic, or Acute on Chronic? @ -Acute Uncomplicated (without systemic symptoms) or Complicated (systemic symptoms)? @ -[Complicated Side effects of treatment? @ -No Exacerbation, Progression, or Severe Exacerbation? @ -No Poses a threat to life or bodily function? How? (Chest pain, [place], [place], pneumonia, PE, COPD, DKA, ARF, appy, cholecystitis, CVA, Diverticulitis, Homicidal, Suicidal, threat to staff... and all critical care pts) @ -Yes, ischemic bowel, sepsis - Lab Data Result diagrams: 02/20/23 10:13 02/20/23 10:13 Lab Results 02/20/23 02/20/23 02/20/23 Range/Units 10:13 10:13 10:13 WBC 7.4 (3.8-10.6) k/uL RBC 5.29 (4.30-5.90) m/uL Hgb 16.2 (13.0-17.5) gm/dL Hct 49.5 (39.0-53.0) % MCV 93.5 (80.0-100.0) fL MCH 30.6 (25.0-35.0) pg MCHC 32.7 (31.0-37.0) g/dL RDW 13.0 (11.5-15.5) % Plt Count 173 (150-450) k/uL MPV 8.8 Neutrophils % 72 % Lymphocytes % 19 % Monocytes % 7 % Eosinophils % 1 % Basophils % 0 % Neutrophils # 5.3 (1.3-7.7) k/uL Lymphocytes # 1.4 (1.0-4.8) k/uL Monocytes # 0.5 (0-1.0) k/uL Eosinophils # 0.1 (0-0.7) k/uL Basophils # 0.0 (0-0.2) k/uL PT 10.9 (9.0-12.0) sec INR 1.0 (<1.2) APTT 23.8 (22.0-30.0) sec Sodium 142 (137-145) mmol/L Potassium 3.6 (3.5-5.1) mmol/L Chloride 106 (98-107) mmol/L Carbon Dioxide 28 (22-30) mmol/L Anion Gap 8 mmol/L BUN 23 H (9-20) mg/dL Creatinine 0.76 (0.66-1.25) mg/dL Est GFR (CKD-EPI)AfAm >90 (>60 ml/min/1.73 sqM) Est GFR (CKD-EPI)NonAf >90 (>60 ml/min/1.73 sqM) Glucose 125 H (74-99) mg/dL Plasma Lactic Acid Myles (0.7-2.0) mmol/L Calcium 9.3 (8.4-10.2) mg/dL Total Bilirubin 0.7 (0.2-1.3) mg/dL AST 36 (17-59) U/L ALT 31 (4-49) U/L Alkaline Phosphatase 89 (38-126) U/L Troponin I (0.000-0.034) ng/mL Total Protein 7.1 (6.3-8.2) g/dL Albumin 4.2 (3.5-5.0) g/dL Amylase 61 (30-110) U/L Lipase 97 (23-300) U/L 02/20/23 02/20/23 Range/Units 10:13 10:13 WBC (3.8-10.6) k/uL RBC (4.30-5.90) m/uL Hgb (13.0-17.5) gm/dL Hct (39.0-53.0) % MCV (80.0-100.0) fL MCH (25.0-35.0) pg MCHC (31.0-37.0) g/dL RDW (11.5-15.5) % Plt Count (150-450) k/uL MPV Neutrophils % % Lymphocytes % % Monocytes % % Eosinophils % % Basophils % % Neutrophils # (1.3-7.7) k/uL Lymphocytes # (1.0-4.8) k/uL Monocytes # (0-1.0) k/uL Eosinophils # (0-0.7) k/uL Basophils # (0-0.2) k/uL PT (9.0-12.0) sec INR (<1.2) APTT (22.0-30.0) sec Sodium (137-145) mmol/L Potassium (3.5-5.1) mmol/L Chloride (98-107) mmol/L Carbon Dioxide (22-30) mmol/L Anion Gap mmol/L BUN (9-20) mg/dL Creatinine (0.66-1.25) mg/dL Est GFR (CKD-EPI)AfAm (>60 ml/min/1.73 sqM) Est GFR (CKD-EPI)NonAf (>60 ml/min/1.73 sqM) Glucose (74-99) mg/dL Plasma Lactic Acid Myles 1.8 (0.7-2.0) mmol/L Calcium (8.4-10.2) mg/dL Total Bilirubin (0.2-1.3) mg/dL AST (17-59) U/L ALT (4-49) U/L Alkaline Phosphatase (38-126) U/L Troponin I <0.012 (0.000-0.034) ng/mL Total Protein (6.3-8.2) g/dL Albumin (3.5-5.0) g/dL Amylase (30-110) U/L Lipase (23-300) U/L Critical Care Time Critical Care Time: Yes Total Critical Care Time: 35 Disposition Clinical Impression: Small bowel obstruction Disposition: ADMITTED IP TO THIS [facility] Condition: Stable Is patient prescribed a controlled substance at d/c from ED?: No Referrals: None,Stated [Primary Care Provider] - 1-2 days Time of Disposition: 12:12
[2023-02-20 10:31] LABS: Basophils % (A) 0 %; Eosinophils # (A) 0.1 k/uL (0-0.7); Eosinophils % (A) 1 %; HCT 49.5 % (39.0-53.0); HGB 16.2 gm/dL (13.0-17.5); Lymphocytes # (A) 1.4 k/uL (1.0-4.8); Lymphocytes % (A) 19 %; MCH 30.6 pg (25.0-35.0); MCHC 32.7 g/dL (31.0-37.0); MCV 93.5 fL (80.0-100.0); Mean Platelet Volume 8.8; Monocytes # (A) 0.5 k/uL (0-1.0); Monocytes % (A) 7 %; Neutrophils # (A) 5.3 k/uL (1.3-7.7); Neutrophils % (A) 72 %; Platelet Count 173 k/uL (150-450); RBC 5.29 m/uL (4.30-5.90); WBC 7.4 k/uL (3.8-10.6)
[2023-02-20 10:40] LABS: Partial Thromboplastin Time 23.8 sec (22.0-30.0); Prothrombin Time 10.9 sec (9.0-12.0)
[2023-02-20 10:45] LABS: ALT 31 U/L (4-49); AST 36 U/L (17-59); African American GFR (CKD) >90 (>60 ml/min/1.73 sqM); Albumin 4.2 g/dL (3.5-5.0); Alkaline Phosphatase 89 U/L (38-126); Amylase 61 U/L (30-110); Anion Gap 8 mmol/L; Blood Urea Nitrogen 23 mg/dL (9-20); Calcium 9.3 mg/dL (8.4-10.2); Carbon Dioxide 28 mmol/L (22-30); Chloride 106 mmol/L (98-107); Glucose 125 mg/dL (74-99); Lipase 97 U/L (23-300); Non-African American GFR(CKD) >90 (>60 ml/min/1.73 sqM); Potassium 3.6 mmol/L (3.5-5.1); Sodium 142 mmol/L (137-145); Total Bilirubin 0.7 mg/dL (0.2-1.3); Total Protein 7.1 g/dL (6.3-8.2)
--- NOTE | 2023-02-20 11:54 | CT ---
EXAMINATION TYPE: CT abdomen pelvis w con DATE OF EXAM: 02/20/2023 COMPARISON: 05/27/2017 HISTORY: Abdominal pain, concern for ischemic bowel. CT DLP: 1065.7 mGycm CONTRAST: CT scan of the abdomen and pelvis is performed without Oral Contrast and with IV Contrast, patient in jected with 100 mL of Isovue 300. FINDINGS: LUNG BASES-: No visible nodule. No infiltrate. LIVER/GB: No calcified gallstones. No space occupying hepatic lesion. Biliary tree is of normal ca liber. Lobulated appearance of the liver compatible with underlying cirrhotic liver disease. Venous c ollaterals noted about the spleen. PANCREAS: No inflammation. No distinct mass. SPLEEN: No splenic enlargement. No lesion seen. ADRENALS: No nodule. No thickening. KIDNEYS/BLADDER: No hydronephrosis. No nephrolithiasis. Exophytic cyst midpole left kidney measures 2.1 cm. Urinary bladder grossly unremarkable. BOWEL: There is been prior small bowel anastomosis within the right mid abdomen. Proximal to the anas tomosis are dilated loops of bowel with air-fluid levels seen measuring up to 3.5 cm felt to reflect obstruction. Distal to the anastomosis there are decompressed loops of small bowel. No inflammatory c hanges seen. No definite evidence for ischemic bowel. Correlate clinically. GENITAL ORGANS: No gross abnormality. LYMPH NODES: No greater than 1cm abdominal or pelvic lymph nodes are appreciated. AORTA: No significant abnormality. OSSEOUS STRUCTURES: Severe degenerative disc space narrowing and vacuum disc lumbar spine. OTHER: No significant additional abnormality is seen. IMPRESSION: 1. Partial or early complete small bowel obstruction at the site of previous small bowel anastomosis right mid abdomen. 2. Findings compatible with cirrhotic liver disease. Venous collaterals as discussed above.
[2023-02-20] MEDS ORDERED: ONDANSETRON 4 MG/2 ML VIAL IVP PRN (12:09)
[2023-02-20] MEDS ORDERED: HYDROmorphone 0.5 MG/0.5 ML SYRINGE IVP PRN (12:09)
[2023-02-20] MEDS ORDERED: NALOXONE 0.4 MG/ML 1 ML VIAL IV PRN (12:09)
[2023-02-20] MEDS: SODIUM CHLORIDE 0.9% 1,000 ML IV SCH (12:25)
[2023-02-20 12:32] LABS: Appearance,Urine Clear (Clear); Bilirubin,Urine Negative (Negative); Blood,Urine Negative (Negative); Color,Urine Yellow; Glucose,Urine (UA) Negative (Negative); Ketones,Urine Negative (Negative); Leukocyte Esterase,Urine Large (Negative); Nitrite,Urine Negative (Negative); PH, Urine 8.5 (5.0-8.0); Protein,Urine Trace (Negative); Squamous Epithelial Cell,Urine 9 /hpf (0-4); WBC,Urine 8 /hpf (0-5)
[2023-02-20 12:33] LABS: Specific Gravity,Urine >1.050 (1.001-1.035)
--- NOTE | 2023-02-20 13:14 | P.GSHP ---
History of Present Illness H&P Date: 02/20/23 CHIEF COMPLAINT: Abdominal pain HISTORY OF PRESENT ILLNESS: This is a 67-year-old male who presented to the hospital due to abdominal pain that started yesterday morning. Patient ports his pain is located on the right side of the abdomen. He had been having nausea no actual vomiting. His last bowel movement was 2 days ago. He did have a some flatus yesterday but has had no flatus today. Patient has a prior history of small bowel obstruction secondary to internal hernia status post lysis of adhesions and small bowel resection in 2017. Also had an umbilical hernia repair as an . Patient is a 3 pack a day smoker. Prior history of alcohol abuse however last time he drank was May 2022. Computed tomography scan had shown partial or early complete small bowel obstruction at the site of previous small bowel anastomosis right mid abdomen. Findings compatible with cirrhotic liver disease. Venous collaterals noted about spleen. Patient denies any fever, chills or sweats. Patient admitted to the hospital for small bowel obstruction. Patient seen and examined in the ER. PAST MEDICAL HISTORY: Diverticular disease PAST SURGICAL HISTORY: Back Surgery, Bowel Resection, Hernia Repair MEDICATIONS: See below ALLERGIES: See below SOCIAL HISTORY: No illicit drug use. History of alcohol abuse quit May 2022 REVIEW OF SYSTEMS: CONSTITUTIONAL: Denies fever or chills. HEENT: Denies blurred vision, vision changes, or eye pain. Denies hemoptysis CARDIOVASCULAR: Denies chest pain or pressure. RESPIRATORY: No shortness of breath. GASTROINTESTINAL: See HPI for pertinent findings HEMATOLOGIC: Denies bleeding disorders. GENITOURINARY: Denies any blood in urine or increased urinary frequency. SKIN: Denies pruitis. Denies rash. PHYSICAL EXAM: VITAL SIGNS: Reviewed GENERAL: Well-developed in no acute distress. HEENT: No sclera icterus. Extraocular movements grossly intact. Moist buccal mucosa. Head is atraumatic, normocephalic. No nasal drainage. ABDOMEN: Mildly distended. Tenderness to palpation of the right mid abdomen NEUROLOGIC: Alert and oriented. Cranial nerves II through XII grossly intact. LABORATORY DATA: WBC is 7.4 Hgb 16.2 platelets 173 Sodium 142 potassium 3.6 creatinine 0.76 Glucose 125 Lactic acid 1.8 Liver enzymes normal lipase 97 Troponin less than 0.012 Urinalysis with evidence of contamination with squamous epithelial cells IMAGING: Computed tomography scan had shown partial or early complete small bowel obstruction at the site of previous small bowel anastomosis right mid abdomen. Findings compatible with cirrhotic liver disease. Venous collaterals noted about spleen. ASSESSMENT: 1. Partial or early complete small bowel obstruction at site of previous small bowel anastomosis in the right mid abdomen 2. Cirrhotic liver disease. Prior history of alcohol abuse 3. Nicotine dependence 4. History of small bowel obstruction secondary to internal hernia requiring lysis of adhesions and small bowel resection in 2017 PLAN: -NG tube to be placed for decompression -Keep patient nothing by mouth -Continue IV fluids -Continue antiemetics as needed -Continue pain medication as needed -Nicotine patch added -Consult medicine service for medical management Physician Beverage Sales Consultant note has been reviewed by physician. Signing provider agrees with the documented findings, assessment, and plan of care. Past Medical History Past Medical History: No Reported History Additional Past Medical History / Comment(s): Alcohol abuse, diverticular dis ease. History of Any Multi-Drug Resistant Organisms: None Reported Past Surgical History: Back Surgery, Bowel Resection, Hernia Repair Additional Past Surgical History / Comment(s): Exploratory laparotomy d/t necrotic small bowel, colonoscopy, low back surgery, umbilical hernia repair as an infant. Past Anesthesia/Blood Transfusion Reactions: No Reported Reaction Past Psychological History: Anxiety, Depression Smoking Status: Current every day smoker Past Alcohol Use History: None Reported Past Drug Use History: None Reported - Past Family History Mother Family Medical History: No Reported History Father Family Medical History: Congestive Heart Failure (CHF), CVA/TIA Medications and Allergies Home Medications Medication Instructions Recorded Confirmed Type Tamsulosin HCl [Flomax] 0.8 mg PO DAILY 02/20/23 02/20/23 History Allergies Allergy/AdvReac Type Severity Reaction Status Date / Time No Known Allergies Allergy Verified 02/20/23 12:53 Surgical - Exam Vital Signs Temp Pulse Resp BP Pulse Ox 97.7 F 84 22 145/88 96 02/20/23 09:51 02/20/23 09:51 02/20/23 09:51 02/20/23 09:51 02/20/23 09:51 Results - Labs 02/20/23 10:13 02/20/23 10:13 Abnormal Lab Results - Last 24 Hours (Table) 02/20/23 02/20/23 Range/Units 10:13 12:06 BUN 23 H (9-20) mg/dL Glucose 125 H (74-99) mg/dL Urine pH 8.5 H (5.0-8.0) Ur Specific [place] >1.050 H (1.001-1.035) Urine Protein Trace H (Negative) Ur Leukocyte Esterase Large H (Negative) Urine WBC 8 H (0-5) /hpf Ur Squamous Epith Cells 9 H (0-4) /hpf Diabetes panel 02/20/23 Range/Units 10:13 Sodium 142 (137-145) mmol/L Potassium 3.6 (3.5-5.1) mmol/L Chloride 106 (98-107) mmol/L Carbon Dioxide 28 (22-30) mmol/L BUN 23 H (9-20) mg/dL Creatinine 0.76 (0.66-1.25) mg/dL Glucose 125 H (74-99) mg/dL Calcium 9.3 (8.4-10.2) mg/dL AST 36 (17-59) U/L ALT 31 (4-49) U/L Alkaline Phosphatase 89 (38-126) U/L Total Protein 7.1 (6.3-8.2) g/dL Albumin 4.2 (3.5-5.0) g/dL Calcium panel 02/20/23 Range/Units 10:13 Calcium 9.3 (8.4-10.2) mg/dL Albumin 4.2 (3.5-5.0) g/dL Pituitary panel 02/20/23 Range/Units 10:13 Sodium 142 (137-145) mmol/L Potassium 3.6 (3.5-5.1) mmol/L Chloride 106 (98-107) mmol/L Carbon Dioxide 28 (22-30) mmol/L BUN 23 H (9-20) mg/dL Creatinine 0.76 (0.66-1.25) mg/dL Glucose 125 H (74-99) mg/dL Calcium 9.3 (8.4-10.2) mg/dL Adrenal panel 02/20/23 Range/Units 10:13 Sodium 142 (137-145) mmol/L Potassium 3.6 (3.5-5.1) mmol/L Chloride 106 (98-107) mmol/L Carbon Dioxide 28 (22-30) mmol/L BUN 23 H (9-20) mg/dL Creatinine 0.76 (0.66-1.25) mg/dL Glucose 125 H (74-99) mg/dL Calcium 9.3 (8.4-10.2) mg/dL Total Bilirubin 0.7 (0.2-1.3) mg/dL AST 36 (17-59) U/L ALT 31 (4-49) U/L Alkaline Phosphatase 89 (38-126) U/L Total Protein 7.1 (6.3-8.2) g/dL Albumin 4.2 (3.5-5.0) g/dL
[2023-02-20] MEDS: NICOTINE 21MG/24HR PATCH TRANSDERM SCH (15:08)
--- NOTE | 2023-02-20 15:31 | XR ---
EXAMINATION TYPE: XR abdomen 1V DATE OF EXAM: 02/20/2023 COMPARISON: NONE HISTORY: NG tube placement TECHNIQUE: Single supine KUB image of the abdomen is obtained FINDINGS: NG tube is seen coursing into the stomach. Upper abdominal bowel loops appear to be dilated. IMPRESSION: 1. Appropriate placement of NG tube
[2023-02-20] MEDS: HYDROmorphone 1 MG/ML 1 ML SYRINGE IVP PRN ×3 (16:21→22:00)
[2023-02-20] MEDS ORDERED: LORazepam 2 MG/ML INJ IV PRN (17:20)
[2023-02-20] MEDS: HEPARIN SODIUM,PORCINE/PF 5,000 UNIT/0.5 ML SYRINGE SQ SCH (20:13)
[2023-02-20] MEDS: PANTOPRAZOLE 40 MG/10 ML VIAL IVP SCH (20:13)
--- NOTE | 2023-02-21 03:07 | CONS ---
CONSULTATION REASON FOR CONSULTATION: Advice regarding ETOH abuse and other multiple medical issues requested by surgery. HISTORY OF PRESENT ILLNESS: This is a 67-year-old gentleman with past medical history of multiple medical problems including EtOH abuse, was admitted with severe abdominal pain. The patient had a CT scan of the abdomen and pelvis which showed chronic liver disease as well as possible bowel obstruction. Surgery saw the patient and NG tube was inserted. There is no history of any fever, rigors, or chills at this time. PAST MEDICAL HISTORY: Reviewed include EtOH, rest of the history and rest of the chart is also reviewed. HOME MEDICATIONS: Reviewed include Flomax 0.8 daily. ALLERGIES: None. FAMILY HISTORY: No history of heart disease or strokes in the family. SOCIAL HISTORY: Previous history of alcohol, no current usage and history of smoking. REVIEW OF SYSTEMS: A 14-point review of systems is negative except as mentioned earlier. PHYSICAL EXAMINATION: VITAL SIGNS: Pulse is 65, blood pressure 130/90, respirations 16. HEENT: Conjunctivae normal. NECK: No jugular venous distention. CARDIOVASCULAR: S1, S2 muffled. RESPIRATION: Diminished at the bases. ABDOMEN: Soft, distended, tender, bowel sounds diminished. LEGS: No edema, no swelling. NERVOUS SYSTEM: No focal deficit. LABORATORY DATA: Reviewed. ASSESSMENT: 1. Acute small bowel obstruction with severe abdominal pain. 2. Possible chronic liver disease secondary to alcohol. 3. History of bowel resection. 4. History of hernia repair. 5. Anxiety, depression. RECOMMENDATIONS AND DISCUSSION: This 67-year-old gentleman presented with significant bowel obstruction. At this time, I am recommending to continue the current medications, symptomatic treatment, DVT prophylaxis, Protonix, otherwise if a surgery is contemplated, there is no absolute contraindication. We will monitor the liver functions closely. It seems like the patient is not taking alcohol currently, however, recommended to keep an eye on any possible alcohol withdrawals and in case alcohol withdrawal happens, CIWA protocol can be used. See orders for details. We will follow the patient closely with you. MMODL / IJN: [id number] /
[2023-02-21] MEDS: SODIUM CHLORIDE 0.9% 1,000 ML IV SCH ×2 (04:06→22:35)
[2023-02-21] MEDS: HYDROmorphone 1 MG/ML 1 ML SYRINGE IVP PRN (04:06)
[2023-02-21] MEDS: HEPARIN SODIUM,PORCINE/PF 5,000 UNIT/0.5 ML SYRINGE SQ SCH ×2 (08:28→20:39)
[2023-02-21] MEDS: NICOTINE 21MG/24HR PATCH TRANSDERM SCH (08:28)
[2023-02-21] MEDS: PANTOPRAZOLE 40 MG/10 ML VIAL IVP SCH ×2 (08:28→20:39)
[2023-02-21] MEDS: TAMSULOSIN 0.4 MG CAP.ER.24H PO SCH (08:34)
[2023-02-21 09:29] LABS: MCH 30.4 pg (27.0-32.0); MCHC 31.9 d/dL (32.0-37.0); MCV 95.3 FL (80.0-97.0); Mean Platelet Volume 12.2 FL (9.5-12.2); NRBC Per 100 WBC 0 X 10*3/uL (0.00-0.01); Platelet Count 156 X 10*3/uL (140-440); RBC 4.93 X 10*6/uL (4.40-5.60); RDW 14.1 % (11.5-14.5); WBC 4.29 X 10*3/uL (4.50-10.00)
[2023-02-21 10:38] LABS: Basophils # (A) 0.04 X 10*3/uL (0.00-0.10); Basophils % (A) 0.9 %; Eosinophils # (A) 0.02 X 10*3/uL (0.04-0.35); Eosinophils % (A) 0.5 %; Lymphocytes # (A) 0.69 X 10*3/uL (0.90-5.00); Lymphocytes % (A) 16.1 %; Monocytes # (A) 0.85 X 10*3/uL (0.20-1.00); Monocytes % (A) 19.8 %; Neutrophils # (A) 2.68 X 10*3/uL (1.80-7.70); Neutrophils % (A) 62.5 %; RBC Morphology Normal (Normal)
--- NOTE | 2023-02-21 11:19 | P.PN ---
Subjective Progress Note Date: 02/21/23 CHIEF COMPLAINT: Small bowel obstruction HISTORY OF PRESENT ILLNESS: Patient has NG tube in place with possibly 1 L of output in the ER and has had a total of 720ml dark output. Patient reports that his right-sided abdominal pain is decreasing. Denies any nausea. Still has had no flatus or stool. He does report that his abdomen is less distended. Patient did have a low-grade temp of 100.2 around 2 AM. WBC 4.29 hemoglobin 15 and platelets 156 PHYSICAL EXAM: VITAL SIGNS: Reviewed. GENERAL: Well-developed in no acute distress. HEENT: No sclera icterus. Extraocular movements grossly intact. Moist buccal mucosa. Head is atraumatic, normocephalic. ABDOMEN: Softer. Less distended. Mild tenderness with palpation of the right mid abdomen NEUROLOGIC: Alert and oriented. Cranial nerves II through XII grossly intact. ASSESSMENT: 1. Small bowel obstruction at the site of previous small bowel anastomosis in the right mid abdomen 2. Cirrhotic liver disease. Prior history of alcohol abuse 3. Nicotine dependence 4. History of small bowel obstruction secondary to internal hernia requiring lysis of adhesions and small bowel resection in 2017 PLAN: -Continue NG tube for decompression -Keep patient nothing by mouth -Continue IV fluids -Encouraged patient to increase activity level -Medicine service has added antibiotics -DVT prophylaxis subcu heparin and GI prophylaxis Protonix Physician Speech Pathology Teacher note has been reviewed by physician. Signing provider agrees with the documented findings, assessment, and plan of care. Objective - Vital Signs Vital signs: Vital Signs Temp 98.5 F 02/21/23 07:20 Pulse 88 02/21/23 07:20 Resp 16 02/21/23 07:20 BP 126/75 02/21/23 07:20 Pulse Ox 94 L 02/21/23 07:20 FiO2 Intake & Output 02/20/23 02/21/23 02/21/23 18:59 06:59 18:59 Intake Total 900 Output Total 550 970 Balance -550 -70 Weight 70.307 kg Intake: Intake, IV Titration 900 Amount Sodium Chloride 0.9% 1, 900 000 ml @ 75 mls/hr IV . [id number] CANDY Rx#:[id number] Output: Gastric Drainage 500 220 Urine 50 750 Other: Voiding Method Urinal # Voids 1 - Labs CBC & Chem 7: 02/21/23 05:54 02/20/23 10:13 Labs: Abnormal Lab Results - Last 24 Hours (Table) 02/20/23 02/21/23 Range/Units 12:06 05:54 WBC 4.29 L (4.50-10.00) X 10*3/uL MCHC 31.9 L (32.0-37.0) d/dL Lymphocytes # 0.69 L (0.90-5.00) X 10*3/uL Eosinophils # 0.02 L (0.04-0.35) X 10*3/uL Urine pH 8.5 H (5.0-8.0) Ur Specific [place] >1.050 H (1.001-1.035) Urine Protein Trace H (Negative) Ur Leukocyte Esterase Large H (Negative) Urine WBC 8 H (0-5) /hpf Ur Squamous Epith Cells 9 H (0-4) /hpf
[2023-02-21] MEDS: PIPERACILLIN-TAZOBACTAM 3.375 GM in SODIUM CHLORIDE 0.9% 100 ML IVPB SCH ×2 (11:26→18:42)
--- NOTE | 2023-02-21 11:34 | PN ---
PROGRESS NOTE DATE OF SERVICE: 02/21/2023 SUBJECTIVE: This is a 67-year-old gentleman, who was admitted with acute small-bowel obstruction with severe abdominal pain, had NG tube. The pain is slightly better. Abdomen is still distended. Surgery is following the patient closely. No chest pain. No palpitation. OBJECTIVE: VITAL SIGNS: Pulse is 88, blood pressure N, respirations 16, T-max is _NTD HEENT: Conjunctivae normal. CARDIOVASCULAR: S1, S2. RESPIRATIONS: Few scattered rhonchi. ABDOMEN: Soft, distended. LEGS: No edema. NERVOUS SYSTEM: Nonfocal. LABORATORY DATA: Reviewed. ASSESSMENT: 1. Acute small-bowel obstruction with severe abdominal pain. 2. Possible acute urinary tract infection. 3. Fever. 4. Possible chronic liver disease secondary to EtOH. 5. History of bowel resection. 6. History of hernia repair. 7. Anxiety, depression. RECOMMENDATIONS AND DISCUSSION: Recommended to continue symptomatic treatment. I would recommend to add empiric antibiotics and follow the cultures. Obtain the cultures, urine and blood. Otherwise, closely follow with Surgery. Further recommendations to follow. MMODL / IJN: [id number] / LON
[2023-02-21 22:36] LABS: ALT 23 U/L (10-49); AST 27 U/L (14-35); Albumin 3.7 d/dL (3.8-4.9); Albumin/Globulin Ratio 1.61 Ratio (1.60-3.17); Alkaline Phosphatase 68 U/L (41-126); Blood Urea Nitrogen 18.9 mg/dL (9.0-27.0); Calcium 8.6 mg/dL (8.7-10.3); Carbon Dioxide 23.5 mmol/L (21.6-31.8); Chloride 108 mmol/L (96-109); Globulin 2.3 d/dL (1.6-3.3); Glucose 118 mg/dL (70-110); Potassium 4.3 mmol/L (3.5-5.5); Sodium 143 mmol/L (135-145); Total Bilirubin 0.7 mg/dL (0.3-1.2)
[2023-02-22] MEDS: PIPERACILLIN-TAZOBACTAM 3.375 GM in SODIUM CHLORIDE 0.9% 100 ML IVPB SCH ×2 (05:14→11:25)
[2023-02-22] MEDS: SODIUM CHLORIDE 0.9% 1,000 ML IV SCH (05:15)
[2023-02-22 06:09] LABS: ALT 19 U/L (4-49); AST 22 U/L (17-59); African American GFR (CKD) >90 (>60 ml/min/1.73 sqM); Albumin 2.8 g/dL (3.5-5.0); Albumin/Globulin Ratio 1.2; Alkaline Phosphatase 56 U/L (38-126); Anion Gap 3 mmol/L; Basophils % (A) 1 %; Blood Urea Nitrogen 13 mg/dL (9-20); Calcium 7.9 mg/dL (8.4-10.2); Carbon Dioxide 24 mmol/L (22-30); Chloride 110 mmol/L (98-107); Eosinophils # (A) 0.2 k/uL (0-0.7); Eosinophils % (A) 6 %; Globulin 2.4 g/dL; Glucose 92 mg/dL (74-99); HCT 40.3 % (39.0-53.0); Lymphocytes # (A) 1.3 k/uL (1.0-4.8); Lymphocytes % (A) 38 %; MCH 30.5 pg (25.0-35.0); MCHC 32.1 g/dL (31.0-37.0); Mean Platelet Volume 9.4; Monocytes # (A) 0.3 k/uL (0-1.0); Monocytes % (A) 10 %; Neutrophils # (A) 1.4 k/uL (1.3-7.7); Neutrophils % (A) 43 %; Non-African American GFR(CKD) >90 (>60 ml/min/1.73 sqM); Platelet Count 127 k/uL (150-450); Potassium 3.7 mmol/L (3.5-5.1); RBC 4.24 m/uL (4.30-5.90); Sodium 137 mmol/L (137-145); Total Bilirubin 0.7 mg/dL (0.2-1.3); Total Protein 5.2 g/dL (6.3-8.2); WBC 3.3 k/uL (3.8-10.6)
[2023-02-22] MEDS: NICOTINE 21MG/24HR PATCH TRANSDERM SCH (08:38)
[2023-02-22] MEDS: HEPARIN SODIUM,PORCINE/PF 5,000 UNIT/0.5 ML SYRINGE SQ SCH (08:38)
[2023-02-22] MEDS: PANTOPRAZOLE 40 MG/10 ML VIAL IVP SCH (08:39)
[2023-02-22] MEDS: TAMSULOSIN 0.4 MG CAP.ER.24H PO SCH (08:39)
--- NOTE | 2023-02-22 11:44 | P.DS ---
Providers Date of admission: 02/20/23 12:09 Expected date of discharge: 02/22/23 Attending physician: Saroj Wells Consults: 02/20/23 13:13 Consult Physician Routine Consulting Provider: Anthony Nicole Consult Reason/Comments: medical management Do you want consulting provider notified?: Yes Primary care physician: Stated None Hospital Course: Discharge diagnosis 1. Partial or early complete small bowel obstruction at site of previous small bowel anastomosis in the right mid abdomen. Managed conservatively 2. Cirrhotic liver disease. Prior history of alcohol abuse 3. Nicotine dependence 4. History of small bowel obstruction secondary to internal hernia requiring lysis of adhesions and small bowel resection in 2017 Hospital course This is a 67-year-old male who presented to the hospital with complaints of abdominal pain and was found have evidence of partial or early complete small bowel obstruction at the site of previous small bowel anastomosis right mid abdomen on computed tomography scan. Patient had NG tube placed and his small bowel dissection was treated and managed conservatively. Patient started having flatus and bowel movements. NG tube was removed. He is tolerated advancement of diet. He is afebrile. He's been up and ambulating. Abdominal pain has resolved. He is stable for discharge. Please refer to chart for any further de tails. Physician Digital Assistant note has been reviewed by physician. Signing provider agrees with the documented findings, assessment, and plan of care. Patient Condition at Discharge: Stable Plan - Discharge Summary Discharge Rx Participant: Yes New Discharge Prescriptions: Continue Tamsulosin HCl [Flomax] 0.8 mg PO DAILY Discharge Medication List Tamsulosin HCl [Flomax] 0.8 mg PO DAILY 02/20/23 [History] Follow up Appointment(s)/Referral(s): None,Stated [Primary Care Provider] - 1-2 days Saroj Wells MD [STAFF PHYSICIAN] - 1 Week Activity/Diet/Wound Care/Special Instructions: Advance diet as tolerated at home Discharge Disposition: HOME SELF-CARE
--- NOTE | 2023-02-22 11:55 | PN ---
PROGRESS NOTE DATE OF SERVICE: 02/22/2023 SUBJECTIVE: This is a 67-year-old gentleman admitted with partial small bowel obstruction. It is improving significantly. The patient is having bowel movement. NG tube is out. OBJECTIVE: VITAL SIGNS: Pulse is 63, blood pressure 140/70, respirations 16. CHEST: Clear to auscultation. CARDIOVASCULAR: S1 and S2. ABDOMEN: Soft. Mild distention. Bowel sounds present. LABORATORY DATA: Reviewed. ASSESSMENT: 1. Partial small bowel obstruction with severe abdominal pain. 2. Possible acute urinary tract infection. 3. Fever, improved. 4. Possible chronic liver disease secondary to EtOH. 5. History of bowel resection. 6. Multiple medical issues. RECOMMENDATIONS: Recommend to continue current medications. Continue symptomatic treatment. Closely follow with Surgery. Further recommendations to follow. MMODL / IJN: [id number] /
[2023-02-22 13:36] VITALS: BP 124/72; PULSE 66; RESP 18; TEMP 96.9
== END 2023-02-22 14:42 | disposition home or self-care (01) | DRG 390 ==
LOC: EC 09:50 → 4SSUR 12:09 → 5NMEDONC 14:11
PROVIDERS: ADMIT Surgery; ATTEND Surgery
PROC: 0D9670Z Drainage of Stomach with Drainage Device, Via Natural or Artificial Opening (ICD-10-PCS; principal; 2023-02-20)
DX: K56.600 Partial intestinal obstruction, unspecified as to cause (principal); K74.60 Unspecified cirrhosis of liver; F10.11 Alcohol abuse, in remission; F32.A Depression, unspecified; I87.8 Other specified disorders of veins; F17.210 Nicotine dependence, cigarettes, uncomplicated; K43.9 Ventral hernia without obstruction or gangrene; F41.9 Anxiety disorder, unspecified; Z79.899 Other long term (current) drug therapy; Z87.19 Personal history of other diseases of the digestive system
CPT/HCPCS: 36415; 74018; 74177; 80053; 81001; 82150; 83605; 83690; 84484; 85025; 85610; 85730; 87040; 87086; 93005; 96361; 96365; 96375; 96376; 99285

== ENCOUNTER 2023-03-23 19:06 | Emergency (ER) | payer MEDICARE, OTHER ==
[2023-03-23] MEDS ORDERED: FAMOTIDINE 20 MG/2 ML VIAL IV STA (19:10)
[2023-03-23] MEDS ORDERED: ONDANSETRON 4 MG/2 ML VIAL IVP STA (19:15)
[2023-03-23 19:41] LABS: Basophils % (A) 0 %; Eosinophils % (A) 1 %; HCT 46.7 % (39.0-53.0); HGB 14.9 gm/dL (13.0-17.5); Lymphocytes # (A) 2.5 k/uL (1.0-4.8); Lymphocytes % (A) 54 %; MCH 30.1 pg (25.0-35.0); MCHC 31.9 g/dL (31.0-37.0); MCV 94.4 fL (80.0-100.0); Mean Platelet Volume 8.8; Monocytes # (A) 0.2 k/uL (0-1.0); Monocytes % (A) 5 %; Neutrophils # (A) 1.8 k/uL (1.3-7.7); Neutrophils % (A) 38 %; Platelet Count 167 k/uL (150-450); RBC 4.95 m/uL (4.30-5.90); RDW 13.1 % (11.5-15.5); WBC 4.7 k/uL (3.8-10.6)
[2023-03-23 19:54] LABS: ALT 25 U/L (4-49); AST 37 U/L (17-59); African American GFR (CKD) >90 (>60 ml/min/1.73 sqM); Albumin 4.2 g/dL (3.5-5.0); Alkaline Phosphatase 84 U/L (38-126); Anion Gap 12 mmol/L; Blood Urea Nitrogen 15 mg/dL (9-20); Calcium 8.7 mg/dL (8.4-10.2); Carbon Dioxide 20 mmol/L (22-30); Chloride 108 mmol/L (98-107); Glucose 121 mg/dL (74-99); Non-African American GFR(CKD) >90 (>60 ml/min/1.73 sqM); Potassium 3.9 mmol/L (3.5-5.1); Sodium 140 mmol/L (137-145); Total Protein 7.3 g/dL (6.3-8.2)
[2023-03-23 20:03] LABS: INR 1.1 (<1.2); Prothrombin Time 11.5 sec (9.0-12.0)
[2023-03-23 20:21] LABS: Partial Thromboplastin Time 21.7 sec (22.0-30.0)
--- NOTE | 2023-03-23 20:30 | XR ---
EXAMINATION TYPE: XR chest 1V portable DATE OF EXAM: 03/23/2023 8:16 PM COMPARISON: 05/19/2022 chest x-ray TECHNIQUE: XR chest 1V portable . CLINICAL INDICATION:Male, 67 years old with history of chest pain; FINDINGS: Lungs/Pleura: Prominent interstitial lung markings are seen scattered throughout the lungs. No eviden ce of focal consolidation, pneumothorax or pleural effusion. Pulmonary vascularity: Unremarkable. Heart/mediastinum: Cardiomediastinal silhouette is unremarkable. Atherosclerotic calcifications are seen in the aorta. Musculoskeletal: No acute osseous pathology. Chronic degenerative changes of the shoulder joints bila terally. IMPRESSION: Chronic prominent interstitial lung markings are noted. No evidence for superimposed infiltrate.
--- NOTE | 2023-03-23 21:00 | ED ---
Allergic Reaction HPI - General Chief complaint: Allergic Reaction Stated complaint: Allergic Reaction Time Seen by Provider: 03/23/23 19:09 Source: patient, EMS Mode of arrival: EMS Limitations: no limitations - History of Present Illness Initial Comments: This patient is 67-year-old man who arrives by ambulance to evaluation after being stung by wasp. The patient reportedly was feeling short of breath and tightness in his throat. Patient also having diffuse urticaria. EMS was activated, they gave the patient Solu-Medrol, Benadryl, epinephrine and transported the patient here. On arrival, patient states that he is feeling very shaky. He states he feels like his breathing has improved and the itching is resolving. He does have some residual chest tightness. He also has noticed some nausea. MD Complaint: allergic reaction, hives -: minutes(s) Exposure: insect bite Symptoms: rash, itching, difficulty breathing, nausea Severity: moderate Treatment Prior to Arrival: benadryl, epinephrine, oxygen, steroids Previous Allergy History: other (Urticaria) - Related Data Home Medications Medication Instructions Recorded Confirmed Tamsulosin HCl [Flomax] 0.8 mg PO DAILY 02/20/23 02/20/23 Previous Rx's Medication Instructions Recorded EPINEPHrine (Auto Inject) [Epipen] 0.3 mg IM ONCE PRN #2 each 03/23/23 Famotidine [Pepcid] 20 mg PO BID #14 tablet 03/23/23 diphenhydrAMINE [Benadryl] 50 mg PO QID #20 capsule 03/23/23 predniSONE 60 mg PO DAILY #30 tab 03/23/23 Allergies Allergy/AdvReac Type Severity Reaction Status Date / Time No Known Allergies Allergy Verified 02/20/23 12:53 Review of Systems ROS Statement: Those systems with pertinent positive or pertinent negative responses have been documented in the HPI. ROS Other: All systems not noted in ROS Statement are negative. Constitutional: Denies: fever, weakness Eyes: Denies: eye pain, eye discharge ENT: Reports: congestion Respiratory: Reports: dyspnea, wheezes. Denies: cough, hemoptysis Cardiovascular: Reports: chest pain. Denies: palpitations, edema, syncope Gastrointestinal: Reports: nausea. Denies: abdominal pain, vomiting, diarrhea Genitourinary: Denies: dysuria, hematuria Musculoskeletal: Denies: back pain Skin: Reports: as per HPI, rash, pruritus Neurological: Denies: headache, weakness, numbness Psychiatric: Reports: anxiety Past Medical History Past Medical History: No Reported History Additional Past Medical History / Comment(s): Alcohol abuse, diverticular disease. History of Any Multi-Drug Resistant Organisms: None Reported Past Surgical History: Back Surgery, Bowel Resection, Hernia Repair Additional Past Surgical History / Comment(s): Exploratory laparotomy d/t necrotic small bowel, colonoscopy, low back surgery, umbilical hernia repair as an . Past Anesthesia/Blood Transfusion Reactions: No Reported Reaction Past Psychological History: Anxiety, Depression Smoking Status: Current every day smoker Past Alcohol Use History: None Reported Past Drug Use History: None Reported - Past Family History Mother Family Medical History: No Reported History Father Family Medical History: Congestive Heart Failure (CHF), CVA/TIA General Exam Limitations: no limitations General appearance: alert, anxious Head exam: Present: atraumatic, normocephalic Eye exam: Present: normal appearance. Absent: scleral icterus, conjunctival injection ENT exam: Present: normal oropharynx Neck exam: Present: normal inspection, full ROM. Absent: tenderness, meningismus Respiratory exam: Present: normal lung sounds bilaterally. Absent: respiratory distress, wheezes, rales, rhonchi, stridor, accessory muscle use Cardiovascular Exam: Present: normal rhythm, tachycardia, normal heart sounds. Absent: systolic murmur, diastolic murmur, rubs, gallop GI/Abdominal exam: Present: soft. Absent: distended, tenderness, guarding, rebound, rigid Extremities exam: Present: normal inspection, normal capillary refill. Absent: pedal edema, calf tenderness Back exam: Present: normal inspection. 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 ] Respiratory 28 H 28 H 18 Rate Blood Pressure 147/109 Blood Pressure 147/109 [Left Arm] O2 Sat by Pulse 89 L 97 Oximetry 03/23/23 03/23/23 03/23/23 19:14 19:30 20:00 Temperature Pulse Rate Pulse Rate [ 89 128 H 91 Medical Delivery Driver ] Respiratory 22 42 H 24 Rate Blood Pressure Blood Pressure 138/78 167/66 131/79 [Left Arm] O2 Sat by Pulse 97 90 L 98 Oximetry 03/23/23 21:00 Temperature 97.7 F Pulse Rate 79 Pulse Rate [ Medical Delivery Driver ] Respiratory 14 Rate Blood Pressure 131/79 Blood Pressure [Left Arm] O2 Sat by Pulse 98 Oximetry Medical Decision Making - Medical Decision Making This patient is 67-year-old man who is here for evaluation after bee sting with ALLERGIC reaction. We did add H2 maria e to the treatment. The patient is observed a number of hours after the admit medication administered by EMS. The patient is feeling better and would like to go home. We discussed appropriate further care and follow-up as well as return parameters. Was pt. sent in by a medical professional or institution (, PA, ORGAN RECOVERY COORDINATOR, urgent care, hospital, or fdc...) When possible be specific @ -[No] Did you speak to anyone other than the patient for history (EMS, parent, family, police, friend...)? What history was obtained from this source @ -[EMS did provide history as well. The patient's family did give history after their arrival Did you review nursing and triage notes (agree or disagree)? Why? @ -[I reviewed and agree with nursing and triage notes] Were old charts reviewed (outside hosp., previous admission, EMS record, old EKG, old radiological studies, urgent care reports/EKG's, fdc records)? Report findings @ -[No old charts were reviewed] Differential Diagnosis (chest pain, altered mental status, abdominal pain women, abdominal pain men, vaginal bleeding, weakness, fever, dyspnea, syncope, headache, dizziness, GI bleed, back pain, seizure, CVA, palpatations, mental health, musculoskeletal)? @ -[Differential diagnosis includes urticaria, anaphylaxis, as well as other causes of dyspnea Differential Dyspnea: Coronary syndrome, arrhythmia, tamponade, asthma, COPD, pulmonary embolism, pneumonia, pneumothorax, pulmonary effusion, anaphylaxis, diabetic ketoacidosis, flailed chest, pulmonary contusion, diaphragmatic rupture, anemia, neuromuscular, this is not meant to be an all-inclusive list. EKG interpreted by me (3pts min.). @ -[As above] X-rays interpreted by me (1pt min.). @ -[None done] CT interpreted by me (1pt min.). @ -[None done] U/S interpreted by me (1pt. min.). @ -[None done] What testing was considered but not performed or refused? (CT, X-rays, U/S, labs)? Why? @ -[None] What meds were considered but not given or refused? Why? @ -[None] Did you discuss the management of the patient with other professionals (professionals i.e. , PA, ORGAN RECOVERY COORDINATOR, lab, RT, psych nurse, child protective services social worker, tipple supervisor, teacher, bank operations officer, case filler)? Give summary @ -[No] Was smoking cessation discussed for >3mins.? @ -[No] Was critical care preformed (if so, how long)? @ -[No] Were there social determinants of health that impacted care today? How? (Homelessness, low income, unemployed, alcoholism, drug addiction, transportation, low edu. Level, literacy, decrease access to med. care, ch[facility], rehab)? @ -[No] Was there de-escalation of care discussed even if they declined (Discuss DNR or withdrawal of care, Hospice)? DNR status @ -[No] What co-morbidities impacted this encounter? (DM, HTN, Smoking, COPD, CAD, Cancer, CVA, ARF, Chemo, Hep., AIDS, mental health diagnosis, sleep apnea, morbid obesity)? @ -[None] Was patient admitted / discharged? Hospital course, mention meds given and route, prescriptions, significant lab abnormalities, going to OR and other pertinent info. @ -[Discharged, see above Undiagnosed new problem with uncertain prognosis? @ -[No] Drug Therapy requiring intensive monitoring for toxicity (Heparin, Nitro, Insulin, Cardizem)? @ -[No] Were any procedures done? @ -[No] Diagnosis/symptom? @ -[Anaphylaxis secondary to wasp sting Acute, or Chronic, or Acute on Chronic? @ -Acute Uncomplicated (without systemic symptoms) or Complicated (systemic symptoms)? @ -[Complicated Side effects of treatment? @ -[No] Exacerbation, Progression, or Severe Exacerbation? @ -[No] Poses a threat to life or bodily function? How? (Chest pain, USA, SC, pneumonia, PE, COPD, DKA, ARF, appy, cholecystitis, CVA, Diverticulitis, Homicidal, Suicidal, threat to staff... and all critical care pts) @ -[Yes untreated anaphylaxis carries high risk of morbidity/metallic - Lab Data Result diagrams: 03/23/23 19:15 03/23/23 19:15 Lab Results 03/23/23 03/23/23 03/23/23 Range/Units 19:15 19:15 19:15 WBC 4.7 (3.8-10.6) k/uL RBC 4.95 (4.30-5.90) m/uL Hgb 14.9 (13.0-17.5) gm/dL Hct 46.7 (39.0-53.0) % MCV 94.4 (80.0-100.0) fL MCH 30.1 (25.0-35.0) pg MCHC 31.9 (31.0-37.0) g/dL RDW 13.1 (11.5-15.5) % Plt Count 167 (150-450) k/uL MPV 8.8 Neutrophils % 38 % Lymphocytes % 54 % Monocytes % 5 % Eosinophils % 1 % Basophils % 0 % Neutrophils # 1.8 (1.3-7.7) k/uL Lymphocytes # 2.5 (1.0-4.8) k/uL Monocytes # 0.2 (0-1.0) k/uL Eosinophils # 0.0 (0-0.7) k/uL Basophils # 0.0 (0-0.2) k/uL PT 11.5 (9.0-12.0) sec INR 1.1 (<1.2) APTT 21.7 L (22.0-30.0) sec Sodium 140 (137-145) mmol/L Potassium 3.9 (3.5-5.1) mmol/L Chloride 108 H (98-107) mmol/L Carbon Dioxide 20 L (22-30) mmol/L Anion Gap 12 mmol/L BUN 15 (9-20) mg/dL Creatinine 0.70 (0.66-1.25) mg/dL Est GFR (CKD-EPI)AfAm >90 (>60 ml/min/1.73 sqM) Est GFR (CKD-EPI)NonAf >90 (>60 ml/min/1.73 sqM) Glucose 121 H (74-99) mg/dL Calcium 8.7 (8.4-10.2) mg/dL Magnesium 2.0 (1.6-2.3) mg/dL Total Bilirubin 1.0 (0.2-1.3) mg/dL AST 37 (17-59) U/L ALT 25 (4-49) U/L Alkaline Phosphatase 84 (38-126) U/L Troponin I (0.000-0.034) ng/mL Total Protein 7.3 (6.3-8.2) g/dL Albumin 4.2 (3.5-5.0) g/dL 03/23/23 Range/Units 19:15 WBC (3.8-10.6) k/uL RBC (4.30-5.90) m/uL Hgb (13.0-17.5) gm/dL Hct (39.0-53.0) % MCV (80.0-100.0) fL MCH (25.0-35.0) pg MCHC (31.0-37.0) g/dL RDW (11.5-15.5) % Plt Count (150-450) k/uL MPV Neutrophils % % Lymphocytes % % Monocytes % % Eosinophils % % Basophils % % Neutrophils # (1.3-7.7) k/uL Lymphocytes # (1.0-4.8) k/uL Monocytes # (0-1.0) k/uL Eosinophils # (0-0.7) k/uL Basophils # (0-0.2) k/uL PT (9.0-12.0) sec INR (<1.2) APTT (22.0-30.0) sec Sodium (137-145) mmol/L Potassium (3.5-5.1) mmol/L Chloride (98-107) mmol/L Carbon Dioxide (22-30) mmol/L Anion Gap mmol/L BUN (9-20) mg/dL Creatinine (0.66-1.25) mg/dL Est GFR (CKD-EPI)AfAm (>60 ml/min/1.73 sqM) Est GFR (CKD-EPI)NonAf (>60 ml/min/1.73 sqM) Glucose (74-99) mg/dL Calcium (8.4-10.2) mg/dL Magnesium (1.6-2.3) mg/dL Total Bilirubin (0.2-1.3) mg/dL AST (17-59) U/L ALT (4-49) U/L Alkaline Phosphatase (38-126) U/L Troponin I <0.012 (0.000-0.034) ng/mL Total Protein (6.3-8.2) g/dL Albumin (3.5-5.0) g/dL Disposition Clinical Impression: Allergic reaction Disposition: HOME SELF-CARE Condition: Good Instructions (If sedation given, give patient instructions): General Allergic Reaction (ED) Prescriptions: diphenhydrAMINE [Benadryl] 50 mg PO QID #20 capsule EPINEPHrine (Auto Inject) [Epipen] 0.3 mg IM ONCE PRN #2 each PRN Reason: Anaphylaxis Famotidine [Pepcid] 20 mg PO BID #14 tablet predniSONE 60 mg PO DAILY #30 tab Is patient prescribed a controlled substance at d/c from ED?: No Referrals: None,Stated [Primary Care Provider] - 1-2 days
[2023-03-23 21:51] VITALS: BP 131/79; RESP 14; TEMP 97.7
[2023-03-23 22:08] VITALS: PULSE 91
== END 2023-03-23 21:14 | disposition home or self-care (01) ==
LOC: EC 19:06
DX: T63.461A Toxic effect of venom of wasps, accidental (unintentional), initial encounter (principal); F17.200 Nicotine dependence, unspecified, uncomplicated
CPT/HCPCS: 36415; 93005; 80053; 83735; 84484; 85025; 85610; 85730; 71045; 99284; 96374; 96375; J2405